=== PATIENT | female | born 1945 | race African-American/Black ===

== ENCOUNTER 2021-01-25 11:00 | Outpatient (RCR) | payer MEDICARE, SELFPAY ==
--- NOTE | 2020-12-11 09:14 | PTOPEVAL ---
PHYSICAL THERAPY EVALUATION AND PLAN OF CARE 12-11-20 Thank you for referring Tiffani Almendarez to [facility] for the diagnosis of lumbar radiculopathy and LE weakness.? Tiffani is scheduled to be seen for therapy? 2 x/week for 4 weeks. Please review, sign, date and return this plan of care HERMINIA. I agree with and certify that the following plan of care is medically necessary. Referring Physician Date Attending Provider: DONNA White *PT Outpatient Evaluation Start: 12/11/20 08:20 Document 12/11/20 08:21 NADIA (Rec: 12/11/20 09:14 NADIA [id number]) Outpatient Past Medical History Past Medical History Source of Past Medical History Patient Neurological History Hx Migraine Yes: recent MRI and to dr for headaches/dizziness Hx Other Neurological Disorders Yes: vertigo Cardiovascular History Hx Hypertension Yes: meds Respiratory History Hx Emphysema Yes Hx Sleep Apnea Yes: CPAP sleeping Hx Other Respiratory Disorders Yes: SOB with exertion Gastrointestinal History Hx Gastrointestinal Disorders No Significant History Genitourinary History Hx Genitourinary Disorders No Significant History Musculoskeletal History Hx Back Pain Yes Hx Spinal Surgery Yes: neck surgery over 1 year ago Hx Other Musculoskeletal Disorders Yes: cramps in legs Hematological History Hx Hematological Disorders No Significant History Endocrine History Hx Endocrine Disorders No Significant History HEENT History Hx Sinus Problems Yes: throat issues due to sinus drainage Hx Other HEENT Disorders Yes: glasses; hard of hearing; Integumentary History Hx Skin Disorders No Significant History Evaluation Information Problem Diagnosis lumbar radiculopathy and LE weakness Onset November 06, 2020 Subjective Information gradual increase in pain over Query Text:As Reported By Patient/ past month; no falls or injury Family to back; have not had any falls in the past 6 months; Diagnostic Tests X-Rays For This Problem No MRI For This Problem No Other Tests For This Problem No Previous Treatments Previous Treatments For This Problem previous PT for back, over 1 year ago Prior Level of Function Activity Level (Last 3 Months) Occupation retired Activity of Daily Living Ability Needs Some Help Indoor/Home Mobility Independent Community Mobility Needs Some Help Stairs Ability Needs Some Help Functional Cognition (Planning, Shopping Needs Some Help , Taking [employer]
--- NOTE | 2021-01-01 11:16 | PCPTNOTE ---
Patient called & cancelled scheduled appointment this date due to not having a ride to therapy. Will continue per POC.
--- NOTE | 2021-01-03 11:37 | PCPTNOTE ---
Patient did not show up for scheduled appointment this date. Called all three phone numbers Pt has listed in file, two of the numbers do not have voicemail set up and number was disconnected. This is the Pt's first no-show.
--- NOTE | 2021-01-08 11:59 | PCPTNOTE ---
pt was 30 minutes late for today's appt/reevaluation;
--- NOTE | 2021-01-08 11:59 | PTOPEVAL ---
PHYSICAL THERAPY RE-EVALUATION AND UPDATED PLAN OF CARE 01-08-21 Refer to the clinical summary below for her status today, compared to the initial evaluation. PT will continue treatment 2x/week for 3 weeks. Thank you for referring Tiffani Almendarez to [facility].? Please review, sign, date and return this updated plan of care [facility]. I agree with and certify that the following plan of care is medically necessary. Referring Physician Date Attending Provider: Juliet Sandoval, ORTHO TECH-BC Document 01/08/21 11:25 NADIA (Rec: 01/08/21 11:59 NADIA [id number]) Assessment Status Re-evaluation Subjective Information Tiffani reports: is doing better, Query Text:As Reported By Patient/ therapy is helping, want to Family continue therapy; is doing home exercises; when shopping, can walk about 15 minutes, then have to get scooter at store; Pain Assessment Timing of Pain Assessment Timing of Pain Assessment Assessment Pain Scale Pain Scale Used Numeric (1 - 10) Self Report Pain Assessment Bilateral Back Reported Pain Level 4 Pain Description Burning,Throbbing Pain Frequency Chronic,Continuous Other Pain Description R and L hips and buttock; anterior thigh heavy and hurts Lowest Pain Intensity 4 Greatest Pain Intensity 6 Other Pain Aggravating Factors sleeping awaken 3-4 x/night due to back pain; Pain Score Pain Score 4: Self Report Interventions Used Interventions Used By Clinicians Education,Exercise Lower Extremity Range of Motion General Lower Extremity Range of Motion Gross Lower Extremity Range of Motion supine SLR/ hamstring length B Comments 60' without an increase in pain; stand trunk ROM: flexion- hands to below knee, no increase pain; trunk rotation to R and L without an increase in pain; Lower Extremity Muscle Strength Testing General Lower Extremity Strength Gross Lower Extremity Strength supine: SLR R 10/L 10 reps; bridge 10 reps; side lying hip abduction R to 10' x 10 / L to 10' x 10 reps Gait Assessment 2 Minute Walk Total Distance Walked (feet) 275 2 Minute Walk Gait Speed Score (feet/ 2.29 second) 2 Minute Walk Test Comments used cane Rehab Teaching Rehab Teaching Teaching Topic Rehab Teaching Topic Components Exercise,Home Program As Pertains To Plan of
--- NOTE | 2021-01-15 14:16 | PCPTNOTE ---
Patient did not show up for scheduled appointment this date. Called Pt was able to leave voicemail at , about missed appointment and upcoming appointment on 01/17/21 at 11:00. This is Pt's second N/S.
--- NOTE | 2021-01-17 11:57 | PCPTNOTE ---
Patient did not show up for scheduled appointment this date. Called Pt was able to leave voicemail at reminding her of next appointment time.
--- NOTE | 2021-01-25 11:24 | PCPTNOTE ---
Addendum entered by Sonia Hernandez, SCIENTIFIC DIVER 01/25/21 11:32: Patient showed 30minutes late, wanted to be seen for allowed amount. Original Note: Patient did not show up for scheduled appointment this date; therapist awareness will address at next appointment which is re-eval.
--- NOTE | 2021-01-29 13:03 | PCPTNOTE ---
pt did not show for reevaluation; called pt and her voice mail box was full--unable to leave message;
--- NOTE | 2021-01-31 15:11 | PCPTNOTE ---
pt's caregiver Nicky [phone] called, asked about rescheduling the reeval appt; She stated pt will not be having cardiac surgery. Discussed with Nicky, if pt wants to continue PT or not; she will discuss with pt--? able to do more with cardiac history or just do home exercises on her own? Nicky with talk with pt and call back;
--- NOTE | 2021-02-26 14:51 | PCPTNOTE ---
PHYSICAL THERAPY DISCHARGE 02-26-21 Attending Provider: Juliet Sandoval, INDUSTRIAL SERVICES WORKER- Patient:Tiffani Almendarez Date of :1945 Mrs. Almendarez has not returned for any further treatments since 01/25/2021, therefore she will be discharged at this time. Tiffani has received a total of 11 PT sessions for the diagnosis of LE weakness and lumbar pain. She did not show for 4 appointments and called and canceled 1 appointment. The goals were not assessed. Thank you for referring this patient to [facility]. Please review, sign, date and return this discharge summary HERMINIA. I have been updated about the patient's current status and I agree with discharge from the above service at this time. Referring Physician Date
== END 2021-02-26 14:24 | disposition home or self-care (01) ==
LOC: ANHPT 11:00
PROVIDERS: PCP Family Medicine
DX: M51.16 Intervertebral disc disorders with radiculopathy, lumbar region (principal); R29.898 Other symptoms and signs involving the musculoskeletal system
CPT/HCPCS: 97014; 97110; 97140; 97161; G0283

== ENCOUNTER 2021-02-01 09:30 | Observation (INO) | payer MEDICARE, SELFPAY ==
[2021-02-01] VITALS (15 sets, daily range): BP systolic 123–166; BP diastolic 73–99; PULSE 75–99; RESP 18–21; TEMP 36.1–36.8; O2SAT 95–100; BMI 30.2
--- NOTE | ~2021-02-01 | XR_ITS ---
EXAMINATION: XR chest 2V DATE: 02/01/2021 10:36 INDICATION: Shortness of breath. TECHNIQUE: Frontal and lateral views of the chest were obtained. COMPARISON: Chest 2 views 06/29/2018 FINDINGS: The chest demonstrates clear lungs without pneumonia, pleural effusion, or pneumothorax. Th e heart size is normal. There are changes of posterior fusion procedure in cervical spine. IMPRESSION: 1. No acute cardiopulmonary disease. Reviewed, dictated and finalized at location B.
--- NOTE | 2021-02-01 10:09 | ECG_ITS ---
Measurements Intervals [place] Rate: 87 P: 54 PA: 159 QRS: 17 QRSD: 74 T: 66 QT: 352 QTc: 425 Interpretive Statements SINUS RHYTHM MINIMAL Q WAVES- HIGH LATERAL LEADS BASELINE ARTIFACT- I, II, III, AVR, AVL, V1 BORDERLINE ECG Electronically Signed On 02-01-2021 10:15:44 CDT by Alan Hanna D.O.
[2021-02-01 10:58] LABS: Alanine Aminotransferase 20 U/L (4-35); Albumin Level 4.5 g/dL (3.5-5.1); Alkaline Phosphatase 80 U/L (38-126); Anion Gap 7 mmol/L (8-16); Aspartate Amino Transferase 33 U/L (14-36); Bilirubin,Total 0.5 mg/dL (0.2-1.3); Blood Urea Nitrogen 16 mg/dL (7-17); Calcium 9.2 mg/dL (8.4-10.2); Carbon Dioxide 27 mmol/L (22-30); Chloride 104 mmol/L (98-107); Estimated CRCL calculation 52 ml/min; Estimated Glomerular Filt Rate > 60; Glucose 116 mg/dL (65-105); Potassium 3.9 mmol/L (3.4-5.0); Sodium 138 mmol/L (137-145)
[2021-02-01 11:01] LABS: Troponin I < 0.012 ng/mL (0.000-0.034)
[2021-02-01 11:04] LABS: Add Urine Microscopic? NO; Appearance Urine Clear (Clear); Bilirubin Urine Negative (Negative); Blood Urine Negative (Negative); Color Urine Yellow (Yellow); Glucose Urine UA Negative (Negative); Ketones Urine Negative (Negative); Leukocyte Esterase Ur Negative LEU/UL (Negative); Nitrate Urine Negative (Negative); Protein Urine Negative (Negative); Specific Grav Ur 1.015 (1.001-1.035); Urobilinogen Urine Negative mg/dL (<2.0)
[2021-02-01 11:37] LABS: Basophils Percent Auto 0.3 % (0.2-1.2); Eosinophils Absolute Auto 0.1 K/mm3 (0-0.3); Eosinophils Percent Auto 1.5 % (0-4.4); Hematocrit 39.7 % (37.0-47.0); Hemoglobin 12.7 g/dL (12.0-15.0); Immature Granulocyte Absolute 0.02 K/mm3 (0.00-0.031); Immature Granulocyte Percent A 0.3 % (0-0.5); Lymphocytes Absolute Auto 0.78 K/mm3 (0.9-3.2); Lymphocytes Percent Auto 12.8 % (18.3-44.2); Mean Corpuscular Hemoglobin 25.1 pg (26-34); Mean Corpuscular Volume 78.6 fl (80-100); Monocytes Absolute Auto 0.3 K/mm3 (0.1-0.6); Monocytes Percent Auto 4.1 % (2.6-8.5); Platelet Count Result 205 k/mm3 (150-375); Red Blood Count 5.05 M/mm3 (4.2-5.4); Red Cell Distribution Width 14.8 % (11.5-14.5); White Blood Count 6.1 K/mm3 (4.5-10.0)
--- NOTE | 2021-02-01 12:10 | ED.GENADULT ---
HPI - General Adult General Chief complaint: Shortness of Breath/Dyspnea Stated complaint: WEAK/DIZZY/CP OFF AND ON Time Seen by Provider: 02/01/21 11:26 Source: patient, family and RN notes reviewed Limitations: no limitations History of Present Illness HPI narrative: Patient 75 years old -Mal[place]ian female with At 4 AM this morning with retrosternal heaviness, radiating all the way to her back, associated with pain in the left upper extremity and left neck. Patient was not able to breathe at that time, associated with nausea and one vomiting. The above symptoms lasted for few minutes, currently her main complaint is headache. Patient denies any fever, chills, abdominal pain or urinary symptoms. Patient did not have any Covid 19 infection or vaccination yet. Patient under tremendous amount of stress the last few months because she is taking care of 7 of her grandkids. History of hypertension, hyperlipidemia, sleep apnea on CPAP and TIA x3. Patient does not smoke or drink or uses drugs. Related Data Home Medications Medication Instructions Recorded Confirmed aspirin 81 mg chewable tablet 81 mg PO DAILY 09/15/19 02/01/21 diclofenac sodium 1 % topical gel 2 gm TOPICAL QID 09/15/19 02/01/21 methocarbamol 500 mg tablet 500 mg PO QID 09/15/19 04/04/20 nifedipine 30 mg tablet,extended 30 mg PO DAILY 09/15/19 02/01/21 release terbinafine HCl 250 mg tablet 250 mg PO DAILY 09/15/19 04/04/20 azelastine 137 mcg INTRANASAL Q12H 02/01/21 02/01/21 calcium carbonate-vit D3-min tablet PO 02/01/21 carvedilol 12.5 mg PO BID 02/01/21 02/01/21 losartan 50 mg PO DAILY 02/01/21 02/01/21 pravastatin 20 mg PO DAILY 02/01/21 02/01/21 tizanidine 2 mg PO TID PRN 02/01/21 02/01/21 Allergies Allergy/AdvReac Type Severity Reaction Status Date / Time No Known Allergies Allergy Unknown Verified 09/15/19 13:27 Review of Systems Review of Systems: Narrative: CONSTITUTIONAL: Denies fever, chills, or sweats. EYES: Denies visual changes, redness, or discharge. ENT: Denies rhinorrhea, congestion, sore throat, or otalgia. CARDIOVASCULAR: Denies chest pain, palpitations, or edema. RESPIRATORY: Denies cough or dyspnea. GASTROINTESTINAL: Denies abdominal pain, nausea, vomiting, or diarrhea. GENITOURINARY: Denies dysuria or hematuria. SKIN: Denies rash or itching. MUSCULOSKELETAL: Denies back pain, joint pain, or myalgia. NEUROLOGIC: Denies headache, numbness, or weakness. PSYCHIATRIC: Denies anxiety or depression. [facility] Past Medical History Medical History Anxiety disorder, unspecified Essential hypertension Gastro-esophageal reflux disease without esophagitis Unspecified osteoarthritis, unspecified site Vertigo Surgical History Surgical History Hx of cervical spine surgery Family History Family History Mother Family history unknown Patient's mother is Father Malignant neoplasm of prostate Social History Social History Smoking status: Never smoker Second hand tobacco smoke exposure: No Alcohol intake: never Exam Narrative: Exam Narrative: General appearance: Well-developed, well-nourished Skin: Normal color Head: Normocephalic, nontraumatic Eyes: Clear conjunctiva ENT: Oropharynx normal, ears normal, nose normal Neck: Supple, nontender Chest and respiratory: Airway patent, no respiratory distress, no accessory muscle use Heart: Regular rate/rhythm Abdomen: Soft, nontender, no organomegaly, quiet bowel sounds Vascular: Normal peripheral pulses, normal capillary refill. 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
[2021-02-01] MEDS: METOPROLOL TARTRATE 50 MG TAB 25 MG PO (12:39)
[2021-02-01] MEDS: ASPIRIN 81 MG CHEWABLE TABLET 324 MG PO (12:39)
--- NOTE | 2021-02-01 13:21 | PC.NURSE ---
Called to give report. Informed that receiving nurse was at lunch and would call me back
[2021-02-01 13:41] LABS: INR 0.9
[2021-02-01 13:42] LABS: Partial Thromboplastin Time 26.9 SECONDS (22.3-36.8)
[2021-02-01 13:44] LABS: D Dimer 1.42 ug/mL (<0.48)
[2021-02-01 13:46] LABS: Troponin I < 0.012 ng/mL (0.000-0.034)
--- NOTE | 2021-02-01 15:36 | PM.IMHP ---
H&P: HPI History of Present Illness Date/Time: 02/01/21 15:36 Chief Complaint: Chest pain Narrative: Tiffani Almendarez is a 75-year-old white female being followed by Dr. Hwang for MELGOZA and chest discomfort. The patient has been evaluated for these problems over the last several months. She has had episodes of chest pain and pressure which last for 5 minutes, can occur with no provocation, and resolve spontaneously. She has also had progressive MELGOZA. She used to walk 12 blocks with her dog but now can only walk from room to room by before she has some shortness of breath and needs to rest. Evaluation to date includes an echocardiogram in June 2020 showing normal LV function, mild LVH, diastolic dysfunction, EF 54%, mild MR and RVSP of 31 mmHg. A stress test in June 2020 showed normal perfusion, EF 70%. However because of these ongoing symptoms Dr. Hwang has recommended a right and left heart catheterization for a definitive analysis, which is pending insurance approval. The patient had a particularly intense of intense chest pain about 1.5 months ago while washing dishes and then little spells since then. This morning she woke up with significant substernal chest discomfort, tightness and squeezing, a gas-like feeling with burning which radiated to the interscapular area and down her left arm associated with shortness of breath and sweating. She had dry heaves. There was radiation to the left neck. She also complained of headache and some discomfort of the lower abdomen. She called her granddaughter, who called EMS. The CP improved after about 10 minutes. Per EMS run, on their arrival her pulse is 93, respiratory rate 36-40, blood pressure 145/87, O2 sat 98. Was evaluated in the emergency room and admitted to observation. She has been pain-free since admission. She also has a history of hypertension, hyperlipidemia and 3 TIAs. Review of Systems Constitutional: Constitutional: Reports lethargy Eyes: Eyes: Reports blurry vision Comments: Visual problem since TIAs. ENT: Denies Normal hearing present Cardiovascular: Cardiovascular: Reports chest pain, Denies pedal edema, Denies leg edema, Denies lightheadedness and Denies palpitations Respiratory: Respiratory: Denies hemoptysis and Reports dyspnea on exertion Gastrointestinal: Gastrointestinal: Denies melena and Denies hematochezia Genitourinary: Genitourinary: Denies hematuria Musculoskeletal: Musculoskeletal: Reports back pain Integumentary/Breasts: Skin/Breast: Denies rash Neurologic: Denies confusion Psychiatric: Psychiatric: Reports anxiety and Denies behavioral changes Comments: Under some stress as she takes care of several grandchildren. [facility] Past Medical History Medical History (Updated 02/01/21 @ 15:53 by Tatianna Dumont MD) Anxiety disorder, unspecified Essential hypertension Gastro-esophageal reflux disease without esophagitis History of TIAs Per patient; I cannot find any documentation Hypercholesterolemia Hyperlipidemia Obstructive sleep apnea on CPAP Right carpal tunnel syndrome Unspecified osteoarthritis, unspecified site Vertigo Surgical History Surgical History Hx of cervical spine surgery Family History Family History (Updated 02/01/21 @ 15:50 by Tatianna Dumont MD) Mother Family history unknown Patient's mother is in her 20s, possibly of exposure Father Malignant neoplasm of prostate Social History Social History Smoking status: Never smoker Second hand tobacco smoke exposure: No Alcohol intake: never Substance use: never Substance use type: does not use Living arrangements: with family Gender identity (if verbalized by the patient): Female Sexual Orientation (if Verbalized by the Patient): Straight or Heterosexual Spiritual care concerns: No M
--- NOTE | 2021-02-01 16:11 | ADMGEN ---
This patient, Tiffani Almendarez, was admitted to [facility]. Patient/family oriented to hospital policies and general routines including ID bracelet, bed and alarms, visiting hours, pain management, procedures, bathroom and other care routines, personal items, smoking policy, room service/diet, and visiting hours. Information on how to activate the Rapid Response Team has been discussed. Patient/Family are encouraged to report perceived risks to care and to ask questions if they do not understand what they are told or what they should do.
--- NOTE | 2021-02-01 16:11 | PC.NURSE ---
Reviewed health history, admission questions, medications, and allergies with this patient. ROWENA Andrew informed and updated.
--- NOTE | 2021-02-01 17:44 | ECG_ITS ---
Measurements Intervals [place] Rate: 68 P: 49 [place]: 179 QRS: 3 QRSD: 76 T: 66 QT: 402 QTc: 430 Interpretive Statements SINUS RHYTHM VOLTAGE CRITERIA FOR LVH MINIMAL Q WAVES- HIGH LATERAL LEADS BORDERLINE ECG Electronically Signed On 02-01-2021 20:13:17 CDT by Alan Hanna D.O.
[2021-02-01] MEDS: carvediloL 12.5 MG TABLET PO (18:51)
[2021-02-01 18:57] LABS: Troponin I < 0.012 ng/mL (0.000-0.034)
--- NOTE | 2021-02-01 19:35 | PC.NURSE ---
REPORT GIVEN TO DAT GUAMAN IN IMU. PT. IS TO TRANSFER TO 206.
--- NOTE | 2021-02-01 19:55 | PC.NURSE ---
CALLED PT'S DAUGHTER, JUNAID, AT [phone]. CONDITION UPDATE GIVEN AND NOTIFIED OF TIME OF CARDIAC CATH IN AM.
--- NOTE | 2021-02-01 20:10 | PC.NURSE ---
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 UPDATES GIVEN TO DAT GUAMAN.
[2021-02-02] VITALS (19 sets, daily range): BP systolic 100–139; BP diastolic 65–87; PULSE 72–90; RESP 16–20; TEMP 36.1–36.6; O2SAT 96–100
[2021-02-02] MEDS: DICLOFENAC SODIUM 1% 100 GM GEL (*BKC) 1 APPLIC TOPICAL (08:28)
[2021-02-02] MEDS: LOSARTAN POTASSIUM 50 MG TABLET PO (08:29)
[2021-02-02] MEDS: CALCIUM/VITAMIN D 250 MG TABLET 1 TABLET PO (08:29)
[2021-02-02] MEDS: ASPIRIN 81 MG CHEWABLE TABLET PO (08:29)
[2021-02-02] MEDS: NIFEdipine 30 MG TAB.ER.24 PO (08:30)
[2021-02-02] MEDS: carvediloL 12.5 MG TABLET PO ×2 (08:30→18:10)
[2021-02-02] MEDS: PRAVASTATIN SODIUM 20 MG TABLET PO (08:30)
[2021-02-02] MEDS: TIZANIDINE HCL 1 MG TABLET PO (08:30)
[2021-02-02] MEDS: NITROGLYCERIN SL 0.4 MG TABLET SUBLINGUAL (12:12)
--- NOTE | 2021-02-02 13:01 | WPDMODSED ---
Moderate Sedation Note-Pt Data Patient Data Diagnosis: chest pain etiology unclear Present Complaint: intermittent chest pain Procedure to be performed/Plan: left heart catheterization Allergies Allergy/AdvReac Type Severity Reaction Status Date / Time No Known Allergies Allergy Unknown Verified 02/01/21 15:17 Home Medications Medication Instructions Recorded Confirmed Type aspirin 81 mg chewable tablet 81 mg PO DAILY 09/15/19 02/01/21 History diclofenac sodium 1 % topical gel 2 gm TOPICAL QID 09/15/19 02/01/21 History methocarbamol 500 mg tablet 500 mg PO QID PRN 09/15/19 04/04/20 History nifedipine 30 mg tablet,extended 30 mg PO DAILY 09/15/19 02/01/21 History release terbinafine HCl 250 mg tablet 250 mg PO DAILY 09/15/19 04/04/20 History azelastine 137 mcg INTRANASAL Q12H 02/01/21 02/01/21 History calcium carbonate-vit D3-min 1 tablet PO DAILY 02/01/21 02/01/21 History carvedilol 12.5 mg PO BID 02/01/21 02/01/21 History losartan 50 mg PO DAILY 02/01/21 02/01/21 History pravastatin 20 mg PO DAILY 02/01/21 02/01/21 History tizanidine 1 mg PO DAILY 02/01/21 02/01/21 History Current Medications: Active Medications Aspirin (Aspirin 81 Mg Chewable Tablet) 81 mg PO DAILY@0800 [facility] Last Admin: 02/02/21 08:29 Dose: 81 mg Documented by: Calcium Carbonate (Calcium/Vitamin D 250 Mg Tablet) 1 tablet PO QAM [facility] Last Admin: 02/02/21 08:29 Dose: 1 tablet Documented by: Carvedilol (Carvedilol 12.5 Mg Tablet) 12.5 mg PO BID [facility] Last Admin: 02/02/21 08:30 Dose: 12.5 mg Documented by: Diclofenac Sodium (Diclofenac Sodium 1% 100 Gm Gel (*Bkc)) 1 applic TOPICAL QID [facility] Stop: 03/03/21 17:01 Last Admin: 02/02/21 08:28 Dose: 1 applic Documented by: Sodium Chloride (Normal Saline Iv) 500 mls @ 100 mls/hr IV CONT .Q5H [facility] Losartan Potassium (Losartan Potassium 50 Mg Tablet) 50 mg PO DAILY [facility] Last Admin: 02/02/21 08:29 Dose: 50 mg Documented by: Nifedipine (Nifedipine 30 Mg Tab.Er.24) 30 mg PO DAILY [facility] Last Admin: 02/02/21 08:30 Dose: 30 mg Documented by: Nitroglycerin (Nitroglycerin Sl 0.4 Mg Tablet) 0.4 mg SUBLINGUAL Q5MIN PRN PRN Reason: Chest Pain Last Admin: 02/02/21 12:12 Dose: 0.4 mg Documented by: Pravastatin Sodium (Pravastatin Sodium 20 Mg Tablet) 20 mg PO DAILY [facility] Last Admin: 02/02/21 08:30 Dose: 20 mg Documented by: Tizanidine HCl (Tizanidine Hcl 1 Mg Tablet) 1 mg PO DAILY [facility] Last Admin: 02/02/21 08:30 Dose: 1 mg Documented by: Sedation/Anesthesia: No previous sedation/anesthesia problems (including family history). [facility] Past Medical History Medical History (Updated 02/01/21 @ 15:53 by Tatianna Dumont MD) Anxiety disorder, unspecified Essential hypertension Gastro-esophageal reflux disease without esophagitis History of TIAs Per patient; I cannot find any documentation Hypercholesterolemia Hyperlipidemia Obstructive sleep apnea on CPAP Right carpal tunnel syndrome Unspecified osteoarthritis, unspecified site Vertigo Surgical History Surgical History Hx of cervical spine surgery Family History Family History (Updated 02/01/21 @ 15:50 by Tatianna Dumont MD) Mother Family history unknown Patient's mother is in her 20s, possibly of exposure Father Malignant neoplasm of prostate Social History Social History Smoking status: Never smoker Second hand tobacco smoke exposure: No Alcohol intake: never Substance use: never Substance use type: does not use Living arrangements: with family Gender identity (if verbalized by the patient): Female Sexual Orientation (if Verbalized by the Patient): Straight or Heterosexual Spiritual care concerns: No Mod Sed Physical Exam Physical Exam Pre Procedural Exam: Normal: Appearance, Neck, Throat, Airway, Lungs, Heart Size, Heart Rate, Hea
--- NOTE | 2021-02-02 14:35 | WPDCARDPROC ---
Cardiac Cath Procedure Note Date of procedure:: 02/02/21 Performing physician:: Nadeem Villanueva MD Indication:: intermittent chest pain Brief clinical history:: this is a 75-year-old black female who is not known to have any coronary disease history. She is having episodes of intermittent chest pain for some time. She has been seen in our office in consultation by my partner who recommended right left heart catheterization both to rule coronary disease and to evaluate suspected pulmonary artery hypertension. Procedure Procedure performed:: Right and left heart catheterization Sedation/Medication given:: fentanyl 50 mg Versed 2 mg case start time 2:06 p.m. case end time 2:30 p.m. sedation provided by Toshia Mueller RN, trained observer Access site:: right femoral artery, right femoral vein Estimated blood loss:: 15-20 cc Procedure note:: patient was brought to the cardiac catheterization lab in the postabsorptive state where the right femoral triangle was prepared and draped in the fashion. Anesthesia was provided with 1% lidocaine infiltrated locally. Following this a 5 [place] sheath was placed into the right femoral artery and a 7 [place] sheath into the femoral vein using the modified Seldinger technique. Following this I used a balloon tip [place]-Larry catheter to measure right-sided pressures and to measure thermodilution cardiac outputs and AV O2 difference. [place]Larry catheter was then withdrawn. I then used a 5 [place] angled pigtail catheter advanced into the central aorta and the LV to measure left-sided hemodynamics and to inject a left ventriculogram in the 30 degree WASSERMAN projection. The pigtail catheter was then withdrawn. I then injected the right left coronary artery using a standard 5 [place] FL4 catheter and the right coronary using a standard 5 [place] JR4 catheter. After this the case was terminated and Angio-Seal was performed and the femoral artery after an angiogram was done of the femoral artery through the sheath. The hemostatic result was good. The venous sheath was pulled in the trestle mainternance laborer as well. Procedure was well tolerated she left the trestle mainternance laborer with no evidence of any procedural complications there was no evidence of a groin hematoma. Findings:: Hemodynamics: Right atrial pressure is 6 mmHg, right ventricle 29/1 end-diastolic 6, pulmonary artery pressure 28/10, pulmonary capillary wedge pressure was 6 mmHg central aortic pressure was 126 over 70 left ventricle 126 over to end-diastolic 14. There was no gradient on pullback across the aortic valve. Thermodilution cardiac output was 3.9 liters/minute giving an index of 2.2. Left ventricle: The LV appears to be normal in size all segments contract appropriately the global ejection fraction is visually estimated to be 50% there were no regional wall motion abnormalities. The left main coronary artery is nicely patent and large in caliber the left anterior descending is a medium caliber vessel proximally and rather small distally. Angiographically it is free of disease with KEITH 3 flow down to the apex. The circumflex is a moderate caliber artery giving rise to the marginal branches which appears to be smooth and angiographically normal in appearance right coronary artery is ponxleuh-ce-swpre caliber dominant to the posterior circulation and angiographically appears to be free of disease. Conclusion:: 1. Right coronary dominant circulation with no evidence of significant coronary disease 2. normal appearing left ventricular systolic contractility 3. symptoms of chest pain are apparently not ischemic in nature based on these finding 4. the patient does not have significant pulmonary hypertension Nadeem Villanueva MD [facility]
[2021-02-02] MEDS: SODIUM CHLORIDE 0.9% IV 1,000 ML 125 ML IV CONT (18:09)
--- NOTE | 2021-03-20 17:05 | PM.DS ---
DS: Admitting Diagnosis Admitting Diagnosis Admitting Diagnosis: chest pain DS: Discharge Diagnosis Discharge Diagnosis (1) Chest pain: Qualifiers: Chest pain type: unspecified Qualified Code(s): R07.9 - Chest pain, unspecified Code(s): R07.9 - Chest pain, unspecified Status: Acute DS: Summary Hospital Course Reason for hospitalization: right and left heart catheterization Hospital Course: this 75-year-old patient followed by 1 of my partners in the office who has been experiencing episodes of chest pain and also by echocardiogram was suspected of having pulmonary hypertension. Rule out coronary heart disease and determine if pulmonary hypertension was present right and left heart catheterization was recommended and performed on the morning of admission. She underwent the procedure without complication from the right femoral artery and vein. The patient's findings are fully dictated in the procedure note. In short she was found to have angiographically non diseased coronary arteries, preserved LV function and no evidence of pulmonary hypertension. Following completion of bedrest the patient was a good candidate for discharge was discharged home with follow-up scheduled in our office as per previous appointment. Status at Discharge Functional status at discharge: independent ambulation Overall status at discharge: patient is back to baseline Time Spent with Patient Time attestation: Total time spent providing and/or coordinating discharge services: Time spent: Less than 30 minutes Exam Const: General: comfortable and no acute distress HENMT: Mouth: Yes moist mucous membranes Eyes: Sclera: sclerae normal Pupils: Equal, round and reactive pupils present Neck: Neck: supple and no JVD Resp: Effort & Inspection: normal respiratory effort Auscultation: clear to auscultation bilaterally Cardio: Rate: regular rate Rhythm: regular rhythm Other: PMI difficult to palpate no murmur no gallop GI: GI Palp: Yes Soft to palpation Auscultation: normal bowel sounds Extrem: General: normal to inspection Discharge Plan Discharge Consulting providers: Nadeem Villanueva ; Alan Hanna ; Jose Petersen V. Discharging Clinician: Medina Alejo Anticipated Discharge Date/Time: 02/02/21 18:53 Patient Disposition: Home, Self-Care Activity: no straining, no driving and other - see discharge instructions Diet: heart healthy Wound Care Instructions: other - see discharge instructions Discharge Instructions: [facility] [address] [place], [place] [id number] DISCHARGE INSTRUCTIONS - POST PCI Activity 1. No driving until 02/03/2021. 2. No lifting, pushing or pulling more than 10 pounds for 1 week. 3. No strenuous exercise or activity (including sexual activity) until you are released to do so. 4. May shower but no tub baths or swimming pool for 1 week. Avoid commercial hot tubs. They are too hot. Medications DO NOT STOP YOUR MEDICATIONS ONLY YOUR PURE PAK MACHINE OPERATOR CAN STOP THE FOLLOWING MEDICATIONS - PLEASE CALL THE OFFICE WITH QUESTIONS. *Aspirin *Ticagrelor (Brilinta) *Atorvastatin *Lisinopril or ARB *Metoprolol tartrate or succinate *Clopidogrel (Plavix) *Prasugrel (Effient) Important Reminders 1. Keep your stent card in your wallet at all times 2. Follow a heart healthy diet paying extra attention to cholesterol and fats. 3. Stay hydrated. 4. If you have chest
== END 2021-02-02 17:30 | disposition home or self-care (01) ==
LOC: ANHED 12:20 → ANHCPC 14:04 → ANHIMU 02-02 09:20 → ANHCPC 02-06 15:10 → ANHIMU 02-06 15:10
PROVIDERS: Specialist; Admitting Provider Internal Medicine Cardiovascular Disease; Emergency Provider Emergency Medicine; Visit Provider Internal Medicine Cardiovascular Disease
PROC: 4A023N8 Measurement of Cardiac Sampling and Pressure, Bilateral, Percutaneous Approach (ICD-10-PCS; CPT 93453; principal; 2021-02-02 11:30)
DX: I20.0 Unstable angina (principal); R06.00 Dyspnea, unspecified; I10 Essential (primary) hypertension; K21.9 Gastro-esophageal reflux disease without esophagitis; F41.9 Anxiety disorder, unspecified; M19.90 Unspecified osteoarthritis, unspecified site; Z79.82 Long term (current) use of aspirin; E78.5 Hyperlipidemia, unspecified; E78.00 Pure hypercholesterolemia, unspecified; G47.33 Obstructive sleep apnea (adult) (pediatric)
CPT/HCPCS: 36415; 71046; 80053; 81003; 84484; 85025; 85380; 85610; 85730; 93005; 93460; 99285; A9270; C1760; C1887; C1894; G0269; G0378; J1644; J2250; J3010; J7030; J7040

== ENCOUNTER 2021-04-25 08:30 | Outpatient (RCR) | payer MEDICARE, SELFPAY ==
--- NOTE | 2021-04-06 13:37 | PTOPEVAL ---
PHYSICAL THERAPY EVALUATION Thank you for referring Tiffani Almendarez to [facility].?Tiffani was evaluated for the dx of dizziness/BPPV. The patient is scheduled to be seen for therapy?2 x/week for 2 weeks. Please review, sign, date and return this plan of care HERMINIA. I agree with and certify that the following plan of care is medically necessary. Referring Physician Date Attending Provider: Zaria Mcnamara NP *PT Outpatient Evaluation Start: 04/06/21 08:28 Freq: Status: Active Protocol: Document 04/06/21 08:28 MLV (Rec: 04/06/21 09:12 MLV [id number]) Therapy Assessment Status Assessment Status Assessment Status Evaluation Evaluation Information Problem Diagnosis dizziness/vertigo Onset 5 months ago Cause no injury Additional Evaluation Detail The patient reports a new onset of dizziness and SOB that began about 5 months ago. The patient has also been admitted for heart concerns recently and tests reveal high BP and stress related symptoms. The patient has new meds and her BP is improved. The patient is SOB but reports no respiratory diagnosis. The patient uses a cane in the home and a rollator when outside for safety. The patient is retired. The patient has occasions of dizziness when lying in bed, still or when getting up. The patient reports taking flonase for sinus issues and takes albuteral for breathing issues. Subjective Information The patient reports having a Query Text:As Reported By Patient/ sinus infection a month ago, Family got treated for it and now her dizziness is better but still occurs. The patient gets up slow to limit dizziness and tries not to turn too fast also. Pt takes meclazine prn for dizziness. The patient lives home with son and has hired assistance for housework , traveling/shopping. Pain Assessment Timing of Pain Assessment Timing of Pain Assessment Assessment Pain Scal
--- NOTE | 2021-04-16 09:01 | PCPTNOTE ---
Patient did not show up for scheduled appointment this date. Called & had to leave a message.
--- NOTE | 2021-04-24 08:24 | PCPTNOTE ---
Patient did not show up for scheduled appointment this date. Called and left message-verified next appt time on message.
--- NOTE | 2021-04-25 09:27 | PTOPEVAL ---
PHYSICAL THERAPY DISCHARGE Thank you for referring Tiffani Almendarez to [facility].? The patient has completed 3 visits for the dx of BPPV. The patient has improved and no further skilled PT needs. DC PT. Please review, sign, date and return this plan of care HERMINIA. I agree with and certify that the following plan of care is medically necessary. Referring Physician Date Attending Provider: Zaria Mcnamara NP *PT Outpatient Discharge Start: 04/06/21 08:28 Freq: Status: Active Protocol: Document 04/25/21 08:41 MLV (Rec: 04/25/21 09:16 MLV [id number]) Therapy Assessment Status Assessment Status Assessment Status Discharge Evaluation Information Problem Diagnosis dizziness/vertigo Cause no injury Additional Evaluation Detail The patient reports having some dizziness that occurs most often when she first stands/turns. Patient states she forgets to take a moment before she moves. The patient reports taking her BP meds regularly but doesn't check BP everyday. The patient is doing her HEP and reports having very little or no symptoms with the BPPV exercise. Pain Assessment Timing of Pain Assessment Timing of Pain Assessment Assessment Self Report Self Report Pain Level 0 Pain Score Pain Score 0: Self Report Vestibular Evaluation Vestibular Testing Smooth Pursuits Normal Saccades Undershoots Sitting Head Thrust WNL Gaze Stabilization with Fixation WNL Gaze Stabilization without Fixation WNL Cardwell-Hallpike Left WNL Shameka-Hallpike Right WNL Horizontal Roll Test in Supine Left WNL Horizontal Roll Test in Supine Right WNL Vestibular Testing Comments control with saccades improve with repetition and pt has a written HEP to work on this activity. The patient is I with the exercises but needs caregiver to help remind her to do them and possibly to help read the instructions. General Exercise General Exercises Exercise Description completed eye exercises in Query Text:Record Sets, Reps, standing; eyes fixed and move Resistance, and Position head side to side and eyes fixed head up and down.
== END 2021-04-25 15:40 | disposition home or self-care (01) ==
LOC: ANHPT 08:30
PROVIDERS: Visit Provider Nurse Practitioner Family
DX: R42 Dizziness and giddiness (principal)
CPT/HCPCS: 97110; 97162

== ENCOUNTER 2021-05-09 11:48 | Observation (INO) | payer MEDICARE, SELFPAY ==
[2021-05-09] VITALS (7 sets, daily range): BP systolic 140–175; BP diastolic 80–105; PULSE 70–95; RESP 14–22; TEMP 35.8–36.7; O2SAT 99–100; BMI 30.7
--- NOTE | ~2021-05-09 | XR_ITS ---
EXAMINATION: XR chest 2V EXAM DATE: 05/09/2021 13:06 INDICATION: Shortness of breath. TECHNIQUE: Frontal and lateral projections of the chest obtained and reviewed. Comparison is made to prior examination from 02/01/2021. FINDINGS: The lungs are clear. There are no pleural effusions. The cardiomediastinal silhouette is within normal limits. There is no pneumothorax suspected. The bones and soft tissues are unremarkab le. IMPRESSION: No acute cardiopulmonary findings. Reviewed, dictated and finalized at location B.
--- NOTE | ~2021-05-09 | US_ITS ---
EXAMINATION: US venous doppler [facility] EXAM DATE: 05/10/2021 11:40 INDICATION: Pulmonary embolism on yesterday's CT. TECHNIQUE: Multiple grayscale, color flow and Doppler images of the lower extremity deep venous syste ms bilaterally were obtained and reviewed. Correlation is made to CT pulmonary scan 05/09/2021. FINDINGS: RIGHT SIDE Common femoral: --------Nonocclusive thrombus. Profunda femoral: ------- Normal. Femoral: Normal. Popliteal: Normal. Posterior tibial: --------- Normal. Peroneal: Normal. Gastrocnemius: Not visualized. Soleus: Not visualized. Greater saphenous: -----Nonocclusive thrombus. Lesser saphenous: ------ Not visualized. LEFT SIDE Common femoral: -------- Normal. Profunda femoral: ------- Normal. Femoral: Nonocclusive thrombus. Popliteal: Normal. Posterior tibial: --------- Normal. Peroneal: Normal. Gastrocnemius: Not visualized. Soleus: Not visualized. Greater saphenous: ----- Normal. Lesser saphenous: ------ Not visualized. IMPRESSION: 1. Right common femoral, left femoral nonocclusive DVT. 2. Right greater saphenous nonocclusive superficial venous thrombosis. Reviewed, dictated and finalized at location B.
--- NOTE | ~2021-05-09 | CT_ITS ---
EXAMINATION: CTA chest PE protocol DATE: 05/09/2021 15:26 INDICATION: Soreness of breath. Elevated d-dimer. TECHNIQUE: Computed tomography (CT) pulmonary angiogram of the chest was performed with 100 mL Omnipa que-350 intravenous contrast. Additional 3D reconstructions utilizing coronal maximum intensity proje ction (MIP) were performed. Automated exposure control and iterative reconstruction technique were em ployed. The dose-length product was 332.13 mGy-cm. COMPARISON: None FINDINGS: Excellent contrast opacification of the pulmonary arteries. There is mild streak artifact from dense contrast in the superior vena cava and right atrium. Minimal scattered respiratory motion artifact wh ich does not significantly limit evaluation. There is a pulmonary arterial filling defect extending b etween the right upper lobar and into the right lower lobar pulmonary artery consistent with pulmonar y embolism. No other pulmonary emboli identified. Mild groundglass opacity throughout the lungs with dependent predominance likely related to poor inspiratory effort. No pneumonia, pulmonary edema or pl eural effusion. Heart size is normal. Or no leftward bowing of the ventricular septum to suggest righ t heart strain. No pericardial effusion. Thoracic aorta is normal in caliber with no dissection. No p athologically enlarged thoracic lymphadenopathy. Visualized upper abdomen is unremarkable. Thoracolum bar dextroscoliosis with mild spondylosis. IMPRESSION: 1. Single long pulmonary embolism extending between the right upper and right lower lobar pulmonary a rteries. Reviewed, dictated and finalized at location A. IMPRESSION: 1. Single long pulmonary embolism extending between the right upper and right l ower lobar pulmonary arteries.
--- NOTE | ~2021-05-09 | XR_ITS ---
EXAMINATION: XR chest 2V DATE: 05/12/2021 12:28 INDICATION: Decreased breath sound TECHNIQUE: frontal and lateral views of the chest were obtained. COMPARISON: Chest radiograph and CT dated 05/09/2021 FINDINGS: The lungs remain clear with no focal airspace opacities, pulmonary edema, pleural effusion or pneumot horax. The cardiomediastinal silhouette is normal. Partially visualized instrumentation for lower cer vical posterior spinal fusion with bilateral vertical sanjeev and lateral mass screws at C5, C6 and C7. IMPRESSION: 1. No acute cardiopulmonary disease. Reviewed, dictated and finalized at location A.
--- NOTE | 2021-05-09 12:21 | ECG_ITS ---
SINUS RHYTHM VOLTAGE CRITERIA FOR LVH BASELINE ARTIFACT- I, II, III, AVR, AVL, AVF, V3-V6 BORDERLINE ECG Electronically Signed On 05-10-2021 8:13:18 CDT by Alan SEWELL
--- NOTE | 2021-05-09 12:27 | ED.GENADULT ---
HPI - General Adult General Chief complaint: Dizziness Stated complaint: SOB, dizziness Time Seen by Provider: 05/09/21 12:04 Source: patient and RN notes reviewed Mode of arrival: ambulatory Limitations: no limitations History of Present Illness HPI narrative: This is a 75 year old female with history of anxiety, hyperlipidemia, hypertension and sleep apnea who presents for evaluation of shortness of breath. She wears CPAP at night and she reports she got a new mask yesterday. She woke up this morning around 5 am feeling short of breath, shaky, anxious, mouth dryness . She reports her alarm was going off on her CPAP machine stating that her mask had a leak. She continued to make adjustments to her mask but she could not get alarm to go off. She felt like air was not going into her nose but going into her mouth. She continues to feels some shortness of breath. She denies chest pain, sob, fever, or wheezing. Related Data Home Medications Medication Instructions Recorded Confirmed nifedipine 30 mg tablet,extended 30 mg PO DAILY 09/15/19 05/09/21 release azelastine 137 mcg INTRANASAL DAILY 02/01/21 05/09/21 carvedilol 12.5 mg PO BID 02/01/21 05/09/21 pravastatin 20 mg PO DAILY 02/01/21 05/09/21 albuterol sulfate 2 puff INHALATION Q4H PRN 05/09/21 05/09/21 buspirone 10 mg PO TID 05/09/21 05/09/21 gabapentin 100 mg PO BID 05/09/21 05/09/21 losartan 25 mg PO DAILY 05/09/21 05/09/21 omeprazole 40 mg PO DAILY 05/09/21 05/09/21 venlafaxine 37.5 mg PO BID 05/09/21 05/09/21 Allergies Allergy/AdvReac Type Severity Reaction Status Date / Time No Known Allergies Allergy Unknown Verified 02/01/21 15:17 Review of Systems Review of Systems: All systems reviewed & are unremarkable except as noted in HPI and below PMFSH Past Medical History Medical History Anxiety disorder, unspecified Essential hypertension Gastro-esophageal reflux disease without esophagitis History of TIAs Per patient; I cannot find any documentation Hypercholesterolemia Hyperlipidemia Obstructive sleep apnea on CPAP Right carpal tunnel syndrome Unspecified osteoarthritis, unspecified site Vertigo Surgical History Surgical History Hx of cervical spine surgery Family History Family History Mother Family history unknown Patient's mother is in her 20s, possibly of exposure Father Malignant neoplasm of prostate Social History Social History Smoking status: Never smoker Second hand tobacco smoke exposure: No Alcohol intake: never Substance use: never Substance use type: does not use Gender identity (if verbalized by the patient): Female Sexual Orientation (if Verbalized by the Patient): Straight or Heterosexual Spiritual care concerns: No Exam Const: General: no acute distress and alert Orientation/consciousness: patient oriented x3 Eyes: EOM: EOMs intact bilaterally Resp: Effort & Inspection: normal respiratory effort, retractions and no use of accessory muscles Auscultation: clear to auscultation bilaterally Cardio: Rate: regular rate Rhythm: regular rhythm Heart sounds: no murmurs GI: GI Palp: Yes Soft to palpation, No Tenderness to palpation present (GI) and No Guarding due to palpation present (GI) Auscultation: normal bowel sounds Skin: General skin exam: normal color Rashes: no rashes Neuro: General: patient oriented x3, moves all extremities and CN's II-XI intact bilaterally Extrem: General: normal to inspection Psych: Mental Status: mental status grossly normal Affect: normal affect Course Consultations Consultation #1: I discussed case with DR. Mahan who works with pcp. I discussed option of treating as outpatient. She rec
[2021-05-09 12:48] LABS: Alveolar/Arterial O2 Gradient 28.1 mmHg; Base Excess ABG 1.1 mEq/l (+/-2.0); Carboxyhemoglobin 0.7 % THb (0-2.0); Fractional Inspired Oxygen 21 %; HCO3 ABG 25.6 mEq/l (22.0-26.0); Methemoglobin ABG 0.3 %THb (0-1.5); Oxygen Content ABG 16.8 %vol (16.0-22.0); Oxygen Saturation ABG 95.1 % (95.0-100.0); Oxyhemoglobin 93.8 % THb (90.0-100.0); PCO2 ABG 40.2 mmHg (35.0-45.0); PO2 ABG 73.5 mmHg (80.0-100.0); Reduced Hemoglobin 5.2 %THb (0-5.0); Total Hemoglobin 12.7 g/dL (12.0-18.0); pH ABG 7.422 (7.350-7.450)
[2021-05-09 12:49] LABS: Device ROOM AIR; Modified Allen's Test Pass; Site Drawn LEFT RADIAL
[2021-05-09 14:19] LABS: Basophils Percent Auto 0.7 % (0.2-1.2); Eosinophils Absolute Auto 0.3 K/mm3 (0-0.3); Eosinophils Percent Auto 4.9 % (0-4.4); Hemoglobin 11.7 g/dL (12.0-15.0); Immature Granulocyte Absolute 0.01 K/mm3 (0.00-0.031); Immature Granulocyte Percent A 0.2 % (0-0.5); Lymphocytes Percent Auto 58.1 % (18.3-44.2); Mean Corpuscular HGB Conc 30.8 g/dl (32-36); Mean Corpuscular Hemoglobin 24.4 pg (26-34); Mean Corpuscular Volume 79.3 fl (80-100); Mean Platelet Volume 9.7 fl (7.4-10.4); Monocytes Absolute Auto 0.4 K/mm3 (0.1-0.6); Monocytes Percent Auto 6.7 % (2.6-8.5); Neutrophils Absolute Auto 1.6 K/mm3 (1.3-6.7); Neutrophils Percent Auto 29.4 % (45.5-73.1); Platelet Count Result 211 k/mm3 (150-375); Red Blood Count 4.79 M/mm3 (4.2-5.4); White Blood Count 5.5 K/mm3 (4.5-10.0)
[2021-05-09 14:29] LABS: Alanine Aminotransferase 22 U/L (4-35); Albumin Level 4.4 g/dL (3.5-5.1); Alkaline Phosphatase 88 U/L (38-126); Anion Gap 14 mmol/L (8-16); Aspartate Amino Transferase 35 U/L (14-36); Bilirubin,Total 0.4 mg/dL (0.2-1.3); Blood Urea Nitrogen 10 mg/dL (7-17); Calcium 9.2 mg/dL (8.4-10.2); Carbon Dioxide 26 mmol/L (22-30); Chloride 102 mmol/L (98-107); Estimated CRCL calculation 53 ml/min; Estimated Glomerular Filt Rate > 60; Glucose 116 mg/dL (65-110); INR 0.9; Potassium 3.9 mmol/L (3.4-5.0); Prothrombin Time 12.2 Seconds (11.1-14.7); Sodium 142 mmol/L (137-145)
[2021-05-09 14:30] LABS: Partial Thromboplastin Time 25.8 SECONDS (22.3-36.8)
[2021-05-09 14:32] LABS: D Dimer 2.28 ug/mL (<0.48)
[2021-05-09 14:40] LABS: NT Pro B Type Natriuretic Pept 40 pg/mL (5-100); Troponin I < 0.012 ng/mL (0.000-0.034)
[2021-05-09] MEDS: RIVAROXABAN 15 MG TABLET PO (16:46)
--- NOTE | 2021-05-09 19:47 | ADMGEN ---
This patient, Tiffani Almendarez, was admitted to Medical Room 243-. Patient/family oriented to hospital policies and general routines including ID bracelet, bed and alarms, visiting hours, pain management, procedures, bathroom and other care routines, personal items, smoking policy, room service/diet, and visiting hours. Information on how to activate the Rapid Response Team has been discussed. Patient/Family are encouraged to report perceived risks to care and to ask questions if they do not understand what they are told or what they should do.
--- NOTE | 2021-05-09 23:52 | PM.IMHP ---
H&P: HPI History of Present Illness Date/Time: 05/09/21 23:52 this is a 75-year-old female patient who has a history of anxiety, hyperlipidemia, hypertension and obstructive sleep apnea. The patient came to the emergency room for evaluation of shortness of breath. The patient stated that she is wearing her CPAP during the night and she has just gotten a new mask yesterday. She woke up at 5:00 a.m. in the morning and felt very short of breath. She was anxious and shaky as well. The patient stated that the alarm was going off under CPAP and she felt that maybe she had a leak in her mask. She could get her mask adjusted and could get the alarm go off. The patient stated that she just felt short of breath and do something was wrong. Chest x-ray was read as no acute cardiopulmonary findings. Chest x-ray was read as single long pulmonary embolism extending between the right upper and right lower lobe pulmonary arteries. The patient was started on Xarelto and felt well enough to go home. However her primary care doctor was notified and recommended that the patient stay overnight. The patient is talking in full sentences and tolerating her CPAP machine well. She denies any further shortness of breath. The patient stated that she has been having some leg cramps as well. She has not had any recent travel or surgery. The patient is being admitted for observation status on the date of service of 05/09/2021. Chief Complaint: Shortness of breath Review of Systems Review of Systems: All systems reviewed & are unremarkable except as noted in HPI and below Constitutional: Constitutional: Reports as per HPI and Reports no additional constitutional complaints Eyes: Eyes: Reports as per HPI and Reports no additional eye complaints ENT: Reports system reviewed and no additional complaints, except as documented and Reports Normal hearing present Cardiovascular: Cardiovascular: Reports no additional cardiovascular complaints Respiratory: Respiratory: Reports no additional respiratory complaints and Reports no additional respiratory complaints Gastrointestinal: Gastrointestinal: Reports as per HPI and Reports no additional gastrointestinal complaints Musculoskeletal: Musculoskeletal: Reports no additional musculoskeletal complaints Integumentary/Breasts: Skin/Breast: Reports system reviewed and no additional complaints, except as docu and Reports as per HPI Neurologic: Reports system reviewed and no additional complaints, except as documented, Reports as per HPI and Reports Normal hearing present Psychiatric: Psychiatric: Reports no additional psychiatric complaints and Reports as per HPI Endocrine: Endocrine: Reports no additional endocrine complaints Hematologic/Lymphatic: Hematologic/Lymphatic: Reports no additional hematologic/lymphatic complaints Allergic/Immunologic: Allergic/Immunologic: Reports no additional allergic/immunologic complaints [facility] Past Medical History Medical History (Updated 05/10/21 @ 00:07 by Leah Rueda NP) Anxiety disorder, unspecified Essential hypertension Gastro-esophageal reflux disease without esophagitis History of brain damage History of pelvic fracture History of TIAs Per patient; I cannot find any documentation HTN (hypertension), benign Hypercholesterolemia Hyperlipidemia SAVANAH treated with BiPAP Right carpal tunnel syndrome Unspecified osteoarthritis, unspecified site Vertigo Surgical History Surgical History (Updated 05/10/21 @ 00:01 by Leah Rueda NP) History of cataract extraction Hx of cervical spine surgery C1 through C7 S/P foot surgery, right Bones spur removed Family History Family History Mother Family history unknown Patient's mother is in her 20s, possibly of exposure Father Malignant neoplasm of prostate Social History Social History (Updated 05/10/21 @ 00:02 by
[2021-05-10] VITALS (11 sets, daily range): BP systolic 106–144; BP diastolic 71–90; PULSE 70–102; RESP 16–21; TEMP 36.2–36.7; O2SAT 94–98
--- NOTE | 2021-05-10 | ECHO_ITS ---
Patient Info Name: Tiffani Almendarez Age: 75 years : 1945 Gender: Female Ht: 62 in Wt: 167 lbs BSA: 1.85 m2 HR: 71 bpm BP: 143 / 80 mmHg Technical Quality: Good Exam Date: 05/10/2021 8:40 AM Exam Location: [facility] Pulmonary Patient Status: Inpatient Admit Date: 05/09/2021 Staff Ordering Physician: Leah Rueda NP Rework Machine Operator: Aleida Kelly RDCS Attending Provider: Pepper Edwards PA-C Referring Physician: Marybeth PABON; Exam Type: CA echo doppler color flow Study Info Indications I27.82 - Chronic pulmonary embolism Complete two-dimensional, color flow and Doppler transthoracic echocardiogram is performed. Summary 1. Complete two-dimensional, color flow and Doppler transthoracic echocardiogram is performed. 2. Left ventricular systolic function is normal, estimated at 55-60%. 3. The left ventricular diastolic function is grade I diastolic dysfunction. 4. Right ventricular chamber dimension is normal. 5. Right ventricular systolic function is reduced. 6. Positive Almeida's sign. 7. There is mild tricuspid valve regurgitation. 8. No pulmonary hypertension, estimated pulmonary arterial systolic pressure is 30 mmHg. Left Ventricle Left ventricular chamber dimension is normal. Left ventricular systolic function is normal, estimated at 55-60%. There is no increased left ventricular wall thickness. Left ventricular septal wall motion is normal. The left ventricular diastolic function is grade I diastolic dysfunction. Global longitudinal strain is abnormal at -10 %. Right Ventricle Right ventricular chamber dimension is normal. Right ventricular systolic function is reduced. Left Atria Left atrial chamber dimension is normal. Right Atria Right atrial chamber dimension is normal. Atrial Septum Intact interatrial septum visualized by color flow imaging. Aortic Valve The aortic valve is trileaflet. There is no aortic valve sclerosis. There is no aortic valve stenosis. There is no aortic valve regurgitation. Pulmonic Valve The pulmonic valve is normal. There is no pulmonic valve stenosis. There is no pulmonic regurgitation. Mitral Valve The mitral valve has normal leaflets. There is no mitral valve stenosis. There is no mitral valve regurgitation. Tricuspid Valve The tricuspid valve leaflets are normal. There is no significant tricuspid valve stenosis. There is mild tricuspid valve regurgitation. No pulmonary hypertension, estimated pulmonary arterial systolic pressure is 30 mmHg. Pericardium/Pleural The pericardium appears normal. There is no pericardial effusion. Inferior Vena Cava Normal inferior vena cava with >50% collapse upon inspiration consistent with normal right atrial pressure, 5 mmHg. Aorta The aortic root size at the sinus of Valsalva is normal. The prox ascending aorta size is normal. Left Ventricular Outflow Tract Name Value Normal LVOT 2D LVOT Diameter 2.0 cm LVOT Doppler LVOT Peak Gradient 3 mmHg LVOT Mean Gradient 2 mmHg LVOT VTI 17 cm
[2021-05-10 05:51] LABS: Alanine Aminotransferase 21 U/L (4-35); Albumin Level 4.1 g/dL (3.5-5.1); Alkaline Phosphatase 86 U/L (38-126); Anion Gap 12 mmol/L (8-16); Aspartate Amino Transferase 31 U/L (14-36); Bilirubin,Total 0.6 mg/dL (0.2-1.3); Blood Urea Nitrogen 10 mg/dL (7-17); Carbon Dioxide 23 mmol/L (22-30); Chloride 103 mmol/L (98-107); Estimated CRCL calculation 47 ml/min; Estimated Glomerular Filt Rate > 60; Glucose 146 mg/dL (65-110); Potassium 4.2 mmol/L (3.4-5.0); Sodium 138 mmol/L (137-145)
[2021-05-10 07:29] LABS: Basophils Percent Auto 0.6 % (0.2-1.2); Eosinophils Absolute Auto 0.3 K/mm3 (0-0.3); Eosinophils Percent Auto 5.3 % (0-4.4); Hematocrit 37.5 % (37.0-47.0); Hemoglobin 11.6 g/dL (12.0-15.0); Lymphocytes Absolute Auto 2.94 K/mm3 (0.9-3.2); Lymphocytes Percent Auto 55.3 % (18.3-44.2); Mean Corpuscular HGB Conc 30.9 g/dl (32-36); Mean Corpuscular Hemoglobin 24.5 pg (26-34); Mean Corpuscular Volume 79.1 fl (80-100); Mean Platelet Volume 9.8 fl (7.4-10.4); Monocytes Absolute Auto 0.4 K/mm3 (0.1-0.6); Monocytes Percent Auto 7.1 % (2.6-8.5); Neutrophils Absolute Auto 1.7 K/mm3 (1.3-6.7); Neutrophils Percent Auto 31.7 % (45.5-73.1); Platelet Count Result 213 k/mm3 (150-375); Red Blood Count 4.74 M/mm3 (4.2-5.4); White Blood Count 5.3 K/mm3 (4.5-10.0)
[2021-05-10] MEDS: AZELASTINE HCL NASAL 0.1% 137 MCG/SPR 30 ML BTL 1 SPRAY NASAL (09:24)
[2021-05-10] MEDS: PRAVASTATIN SODIUM 20 MG TABLET PO (09:24)
[2021-05-10] MEDS: GABAPENTIN 100 MG CAPSULE PO ×2 (09:25→20:50)
[2021-05-10] MEDS: busPIRone HCL 10 MG TABLET PO ×3 (09:25→16:50)
[2021-05-10] MEDS: RIVAROXABAN 15 MG TABLET PO (09:25)
[2021-05-10] MEDS: NIFEdipine 30 MG TAB.ER.24 PO (09:25)
[2021-05-10] MEDS: VENLAFAXINE HCL XR 37.5 MG CAP PO ×2 (09:25→16:50)
[2021-05-10] MEDS: LOSARTAN POTASSIUM 25 MG TABLET PO (09:25)
[2021-05-10] MEDS: carvediloL 12.5 MG TABLET PO ×2 (09:25→20:50)
[2021-05-10] MEDS: PANTOPRAZOLE 40 MG TABLET PO (09:25)
--- NOTE | 2021-05-10 13:55 | ECG_ITS ---
Measurements Intervals [place] Rate: 82 P: 53 WY: 172 QRS: 16 QRSD: 83 T: 66 QT: 375 QTc: 439 Interpretive Statements SINUS RHYTHM MINIMAL Q WAVES- HIGH LATERAL LEADS BORDERLINE ECG Electronically Signed On 05-10-2021 14:25:24 CDT by Alan Hanna D.O.
--- NOTE | 2021-05-10 14:54 | PM.CNCAR ---
Assessment and Plan Assessment and plan (1) Pulmonary embolism: Code(s): I26.99 - Other pulmonary embolism without acute cor pulmonale Status: Acute Assessment and Plan: Sizable right-sided pulmonary embolism with Blanco sign suggestive of a degree of right ventricular strain by echocardiogram. Patient is not exhibiting clinical heart failure, hemodynamic compromise, significant respiratory distress or hypoxia. She is not tachypneic or tachycardia. She has no evidence of a right bundle branch block by EKG, significant tricuspid regurgitation and has normal pulmonary pressures by echocardiogram. No evidence of acute cor pulmonale at this time. PESI score 73 lower risk, negative Trop I and BNP. Discussed with Dr. Carroll and Dr. Alejo at re candidacy for catheter based therapies suc pulmonary thrombolytics and/or thrombectomy. At this time, there is not appear to be acute indication for these advanced catheter based therapies and furthermore risk anticipated to outweigh any potential clinical benefit. If she develops hemodynamic instability, hypoxia and/or heart failure symptoms depending on timing she may then be a candidate for the aforementioned treatments. For now, continue systemic anticoagulation with enoxaparin or unfractionated heparin transition to oral anticoagulation with PE/DVT dosing. Reviewed available literature length. If the patient develops intermediate-high risk features with elevated biomarkers or other concerning clinical features we would consider the above catheter based therapies with recommendations to transfer to outside hospital who is capable of performing either pulmonary section from the lytics were thrombectomy. Discussed with the patient and Dr. Key at length who are in agreement with the plan of care. Spent 75 minutes in the care of this patient Including at bedside with examination, patient discussion, discussions with providers, colleagues, chart review and medical decision making. (2) DVT (deep venous thrombosis): Code(s): I82.409 - Acute embolism and thrombosis of unspecified deep veins of unspecified lower extremity Status: Acute Assessment and Plan: Lower extremity venous Doppler reveals 1. Right common femoral, left femoral nonocclusive DVT. 2. Right greater saphenous nonocclusive superficial venous thrombosis. Systemic anticoagulation as above. (3) SAVANAH treated with BiPAP: Code(s): G47.33 - Obstructive sleep apnea (adult) (pediatric) Status: Chronic Assessment and Plan: continue therapy with BiPAP as ordered. (4) HTN (hypertension), benign: Code(s): I10 - Essential (primary) hypertension Status: Chronic Assessment and Plan: BP stable. Monitor for hypotension, tachycardia and or hypoxia. (5) Hyperlipidemia: Code(s): E78.5 - Hyperlipidemia, unspecified Status: Chronic Assessment and Plan: She remains on pravastatin. Normal coronary anatomy left heart catheterization January 2021. History of Present Illness History of Present Illness Consult date/time: Date of service: 05/10/21 14:54 Cardiology consultation at the request of Dr. Key regarding our opinion regarding pulmonary embolism management Requesting physician: Shola Key MD Consult reason: Other (pulmonary embolism) Reason For Visit: Pulmonary Embolism Narrative: patient is a very pleasant 75-year-old Afro-[place] female with past medical history significant for normal coronary anatomy on left heart catheterization February 02, 2021, hypertension, dyslipidemia, placed on BiPAP who notes she was experiencing progressive shortness of breath over the past month states she woke morning presentation more abruptly short of breath could not breathe on CPAP and presented to the ER. CT PE protocol revealed a large single thrombus in the right extending from the upper to lower lobar. 2D echocardiogram revealed preserved LV function, Matt
[2021-05-10 15:23] LABS: Troponin I < 0.012 ng/mL (0.000-0.034)
--- NOTE | 2021-05-10 15:35 | PM.IMPN ---
Progress Note: A&P Assessment and Plan (1) Pulmonary emboli: Qualifiers: Acute cor pulmonale presence: without acute cor pulmonale Chronicity: acute Pulmonary embolism type: unspecified Qualified Code(s): I26.99 - Other pulmonary embolism without acute cor pulmonale Code(s): I26.99 - Other pulmonary embolism without acute cor pulmonale Status: Acute Assessment and Plan: Patient is a 75-year-old woman with a history of hypertension, dyslipidemia, who presents emergency room with increased shortness of breath which woke her up in the middle the night with associated lightheadedness and shortness breath with exertion which prompted her to come to the emergency room for further evaluation and monitoring. Initial vitals showed a blood pressure was elevated 175/92, non tachycardic at 70 beats per minute, increased respiratory rate 22, afebrile, normal oxygenation on room air. Initial labs showed normal CBC with slight microcytic anemia. Some elevation of her lymphocytes. D-dimer was elevated at 2.28. ABG showed normal pH, pCO2 and HC03 room air. CMP was normal other than slightly elevated glucose at 116. Troponin negative. BNP normal at 40. Chest x-ray showed no acute cardiopulmonary findings. CTA completed due to elevated D-dimer showing single long pulmonary embolism extending between the right upper and right lower lobar pulmonary arteries. She was admitted to the hospital and started on Xarelto 15 mg b.i.d. for further evaluation due to her significant pulmonary embolism. Patient had venous Dopplers which showed Right common femoral, left femoral nonocclusive DVT. Right greater saphenous nonocclusive superficial venous thrombosis. Echocardiogram showing normal EF, right ventricular systolic function is reduced with a positive Almeida will sign. Patient was placed on telemetry which shows a non tachycardic rate and no signs of acute arrhythmia at this time. Cardiology was consulted due to PE findings, DVT and right heart strain. Patient was placed on bed rest until further evaluation can be discussed with the echo vascular tech Dr. Calix Industrial Relations Commissioner talked to the patient and based on her findings, stable vital signs, non tachycardic, normal oxygenation on room air, we have plans to continue monitoring the patient here in the hospital. If anything changes, becomes decompensated, then we will consider transferring her to [facility] for possible thrombectomy by [facility]. Discussed this with the patient and her daughter. Abdomen understands agrees the plan at this time. Will remain bedrest until otherwise stable. She is going to be started on Lovenox 75 mg q.12 hours starting at 9:00 p.m. tonight for treatment of her acute PE. 75 minutes of critical care time spent on this patient, evaluation, ordering tests, reviewing tests, talking to specialist, talking to [facility] about transferring the patient, talking to attending provider, the patient, patients daughter and nurse. (2) HTN (hypertension), benign: Code(s): I10 - Essential (primary) hypertension Status: Chronic Assessment and Plan: Continue with Cozaar, Coreg, and Procardia Blood pressure stable at this time 134/90. (3) Anxiety disorder, unspecified: Qualifiers: Anxiety disorder type: generalized anxiety disorder Qualified Code(s): F41.1 - Generalized anxiety disorder Code(s): F41.9 - Anxiety disorder, unspecified Status: Chronic Assessment and Plan: Continue with BuSpar, gabapentin and Effexor (4) Hyperlipidemia: Code(s): E78.5 - Hyperlipidemia, unspecified Status: Chronic Assessment and Plan: Continue pravastatin (5) SAVANAH treated with BiPAP:
[2021-05-10] MEDS: ENOXAPARIN 80 MG/0.8 ML SYRINGE 75 MG SUB-Q (20:51)
[2021-05-11] VITALS (13 sets, daily range): BP systolic 98–122; BP diastolic 59–88; PULSE 66–98; RESP 16–20; TEMP 36.2–36.7; O2SAT 92–100
[2021-05-11 06:06] LABS: Hematocrit 35.9 % (37.0-47.0); Hemoglobin 11.1 g/dL (12.0-15.0); Mean Corpuscular HGB Conc 30.9 g/dl (32-36); Mean Corpuscular Volume 77.5 fl (80-100); Mean Platelet Volume 9.2 fl (7.4-10.4); Platelet Count Result 196 k/mm3 (150-375); Red Blood Count 4.63 M/mm3 (4.2-5.4); Red Cell Distribution Width 15.9 % (11.5-14.5); White Blood Count 5.2 K/mm3 (4.5-10.0)
[2021-05-11 06:20] LABS: Anion Gap 7 mmol/L (8-16); Blood Urea Nitrogen 14 mg/dL (7-17); Calcium 8.8 mg/dL (8.4-10.2); Carbon Dioxide 23 mmol/L (22-30); Chloride 106 mmol/L (98-107); Estimated CRCL calculation 42 ml/min; Estimated Glomerular Filt Rate > 60; Glucose 168 mg/dL (65-110); Magnesium 2.1 mg/dL (1.6-2.3); Potassium 4.4 mmol/L (3.4-5.0); Sodium 136 mmol/L (137-145)
[2021-05-11 07:05] LABS: Thyroid Stimulating Hormone Reflex 0.853 uIU/mL (0.465-4.68)
[2021-05-11] MEDS: busPIRone HCL 10 MG TABLET PO ×3 (08:45→17:59)
[2021-05-11] MEDS: VENLAFAXINE HCL XR 37.5 MG CAP PO ×2 (08:46→17:59)
[2021-05-11] MEDS: PRAVASTATIN SODIUM 20 MG TABLET PO (08:46)
[2021-05-11] MEDS: GABAPENTIN 100 MG CAPSULE PO ×2 (08:46→20:28)
[2021-05-11] MEDS: carvediloL 12.5 MG TABLET PO ×2 (08:46→20:28)
[2021-05-11] MEDS: ENOXAPARIN 80 MG/0.8 ML SYRINGE 75 MG SUB-Q ×2 (08:46→20:27)
[2021-05-11] MEDS: NIFEdipine 30 MG TAB.ER.24 PO (08:46)
[2021-05-11] MEDS: PANTOPRAZOLE 40 MG TABLET PO (08:46)
[2021-05-11] MEDS: AZELASTINE HCL NASAL 0.1% 137 MCG/SPR 30 ML BTL 1 SPRAY NASAL (08:55)
--- NOTE | 2021-05-11 11:18 | PM.IMPN ---
Progress Note: A&P Assessment and Plan (1) Pulmonary emboli: Qualifiers: Acute cor pulmonale presence: without acute cor pulmonale Chronicity: acute Pulmonary embolism type: unspecified Qualified Code(s): I26.99 - Other pulmonary embolism without acute cor pulmonale Code(s): I26.99 - Other pulmonary embolism without acute cor pulmonale Status: Acute Assessment and Plan: Patient is a 75-year-old woman with a history of hypertension, dyslipidemia, who presents emergency room with increased shortness of breath which woke her up in the middle the night with associated lightheadedness and shortness breath with exertion which prompted her to come to the emergency room for further evaluation and monitoring. Initial vitals showed a blood pressure was elevated 175/92, non tachycardic at 70 beats per minute, increased respiratory rate 22, afebrile, normal oxygenation on room air. Initial labs showed normal CBC with slight microcytic anemia. Some elevation of her lymphocytes. D-dimer was elevated at 2.28. ABG showed normal pH, pCO2 and HC03 room air. CMP was normal other than slightly elevated glucose at 116. Troponin negative. BNP normal at 40. Chest x-ray showed no acute cardiopulmonary findings. CTA completed due to elevated D-dimer showing single long pulmonary embolism extending between the right upper and right lower lobar pulmonary arteries. She was admitted to the hospital and started on Xarelto 15 mg b.i.d. for further evaluation due to her significant pulmonary embolism. Patient had venous Dopplers which showed Right common femoral, left femoral nonocclusive DVT. Right greater saphenous nonocclusive superficial venous thrombosis. Echocardiogram showing normal EF, right ventricular systolic function is reduced with a positive Almeida will sign. Patient was placed on telemetry which shows NSR 85 bpm, one alarm showing artifact, no arrhythmia at this time. Cardiology was consulted due to PE findings, DVT and right heart strain. Dr. Calix Practice Advisor talked to the patient and based on her findings, stable vital signs, non tachycardic, normal oxygenation on room air, we have plans to continue monitoring the patient here in the hospital. If anything changes, becomes decompensated, then we will consider transferring her to [facility] for possible thrombectomy by [facility]. Discussed this with the patient and her daughter. Abdomen understands agrees the plan at this time. Will remain bedrest and continue monitoring for another 24 hours and consider starting Eliquis vs Xarelto tomorrow AM. until otherwise stable. Continue on Lovenox 75 mg q.12 hours for treatment of her acute PE and DVT (2) DVT (deep venous thrombosis): Code(s): I82.409 - Acute embolism and thrombosis of unspecified deep veins of unspecified lower extremity Status: Acute Assessment and Plan: see above (3) HTN (hypertension), benign: Code(s): I10 - Essential (primary) hypertension Status: Chronic Assessment and Plan: Blood pressure stable at this time 110/88. Slightly low at this time. Will hold Cozaar, continue Procardia and Coreg. Continue monitoring make adjustments as needed . (4) Anxiety disorder, unspecified: Qualifiers: Anxiety disorder type: generalized anxiety disorder Qualified Code(s): F41.1 - Generalized anxiety disorder Code(s): F41.9 - Anxiety disorder, unspecified Status: Chronic Assessment and Plan: Continue with BuSpar, gabapentin and Effexor (5) Hyperlipidemia: Code(s): E78.5 - Hyperlipidemia, unspecified Status: Chronic Assessment and Plan: Continue pravastatin (
[2021-05-11] MEDS: ACETAMINOPHEN 500 MG TABLET 1000 MG PO (21:37)
[2021-05-12] VITALS (9 sets, daily range): BP systolic 116–124; BP diastolic 67–77; PULSE 69–97; RESP 13–20; TEMP 35.6–37.1; O2SAT 95–100
[2021-05-12] MEDS: AZELASTINE HCL NASAL 0.1% 137 MCG/SPR 30 ML BTL 1 SPRAY NASAL (08:13)
[2021-05-12] MEDS: PRAVASTATIN SODIUM 20 MG TABLET PO (08:14)
[2021-05-12] MEDS: GABAPENTIN 100 MG CAPSULE PO (08:14)
[2021-05-12] MEDS: PANTOPRAZOLE 40 MG TABLET PO (08:14)
[2021-05-12] MEDS: carvediloL 12.5 MG TABLET PO (08:14)
[2021-05-12] MEDS: busPIRone HCL 10 MG TABLET PO ×2 (08:14→14:36)
[2021-05-12] MEDS: NIFEdipine 30 MG TAB.ER.24 PO (08:14)
[2021-05-12] MEDS: VENLAFAXINE HCL XR 37.5 MG CAP PO (08:15)
[2021-05-12] MEDS: RIVAROXABAN 15 MG TABLET PO (09:01)
--- NOTE | 2021-05-12 14:09 | PM.DS ---
DS: Admitting Diagnosis Admitting Diagnosis SOB DS: Discharge Diagnosis Discharge Diagnosis (1) Pulmonary emboli: Qualifiers: Acute cor pulmonale presence: without acute cor pulmonale Chronicity: acute Pulmonary embolism type: unspecified Qualified Code(s): I26.99 - Other pulmonary embolism without acute cor pulmonale Code(s): I26.99 - Other pulmonary embolism without acute cor pulmonale Status: Acute Assessment and Plan: Patient is a 75-year-old woman with a history of hypertension, dyslipidemia, who presents emergency room with increased shortness of breath which woke her up in the middle the night with associated lightheadedness and shortness breath with exertion which prompted her to come to the emergency room for further evaluation and monitoring. Initial vitals showed a blood pressure was elevated 175/92, non tachycardic at 70 beats per minute, increased respiratory rate 22, afebrile, normal oxygenation on room air. Initial labs showed normal CBC with slight microcytic anemia. Some elevation of her lymphocytes. D-dimer was elevated at 2.28. ABG showed normal pH, pCO2 and HC03 room air. CMP was normal other than slightly elevated glucose at 116. Troponin negative. BNP normal at 40. Chest x-ray showed no acute cardiopulmonary findings. CTA completed due to elevated D-dimer showing single long pulmonary embolism extending between the right upper and right lower lobar pulmonary arteries. She was admitted to the hospital and started on Xarelto 15 mg b.i.d. for further evaluation due to her significant pulmonary embolism. Patient had venous Dopplers which showed Right common femoral, left femoral nonocclusive DVT. Right greater saphenous nonocclusive superficial venous thrombosis. Echocardiogram showing normal EF, right ventricular systolic function is reduced with a positive Almeida will sign. Patient was placed on telemetry which shows NSR 75 bpm, no alarms noted over last 24hrs. Cardiology was consulted due to PE findings, DVT and right heart strain. Dr. Calix Dividing Machine Operator talked to the patient and based on her findings, stable vital signs, non tachycardic, normal oxygenation on room air, we have plans to continue monitoring the patient here in the hospital. If anything changes, becomes decompensated, then we will consider transferring her to [facility] for possible thrombectomy by [facility]. Patient is doing well at this time. She has remain bedrest and monitoring of vitals and on telemetry for the last 3 days. She has been up moving around today going back and forth to the bathroom. Denies any chest pain, shortness of breath. Vitals have remained stable and she has still had no alarms under telemetry. At this time she is stable to go home on Xarelto for treatment of PE and DVT. Told to follow with primary care in 1 week for further evaluation and monitoring. Return to ER warnings given. I discussed with the patient and her daughter and they understand and agree with the plan. All questions answered. (2) DVT (deep venous thrombosis): Code(s): I82.409 - Acute embolism and thrombosis of unspecified deep veins of unspecified lower extremity Status: Acute Assessment and Plan: see above (3) HTN (hypertension), benign: Code(s): I10 - Essential (primary) hypertension Status: Chronic Assessment and Plan: Blood pressure stable at this time 116/77. Stable. Continue home medications. (4) Anxiety disorder, unspecified: Qualifiers: Anxiety disorder type: generalized anxiety disorder Qualified Code(s): F41.1 - Generalized anxiety disorder Code(s): F41.9 - Anxiety disorder, unspecified Status: Chronic Assessment and Plan: Continue with BuSpar, gabapentin and
[2021-05-13 10:38] LABS: Lipoprotein A 40 nmol/L (<75)
[2021-05-15 04:11] LABS: Lupus dRVVT 1:1 Mix Interpreta Not Indicated; Lupus dRVVT Screen 36 sec (<=45); PTT-LA Screen 32 sec (<=40)
== END 2021-05-12 16:55 | disposition home or self-care (01) ==
LOC: ANHED 12:04 → ANH2MED 19:36
PROVIDERS: Internal Medicine Cardiovascular Disease; Nurse Practitioner; Physician Assistant; Admitting Provider Family Medicine; Emergency Provider General Practice; Visit Provider Internal Medicine
DX: I26.99 Other pulmonary embolism without acute cor pulmonale (principal); I82.411 Acute embolism and thrombosis of right femoral vein; G47.33 Obstructive sleep apnea (adult) (pediatric); I10 Essential (primary) hypertension; E78.5 Hyperlipidemia, unspecified; R06.02 Shortness of breath; F41.9 Anxiety disorder, unspecified
CPT/HCPCS: 36415; 36600; 71046; 71275; 80048; 80053; 81291; 82375; 82805; 83050; 83695; 83735; 83880; 84443; 84484; 85025; 85027; 85380; 85610; 85613; 85730; 93005; 93306; 93970; 94660; 96372; 99291; A9270; G0378; J1650; Q9967

== ENCOUNTER 2021-08-22 09:00 | Outpatient (RCR) | payer MEDICARE, SELFPAY ==
--- NOTE | 2021-07-25 10:56 | PTOPEVAL ---
PHYSICAL THERAPY EVALUATION Thank you for referring Tiffani Almendarez to [facility].? Tiffani was evaluated for the dx of back pain/gait instability. The patient is scheduled to be seen for therapy?1 x/week for 4 weeks. Please review, sign, date and return this plan of care HERMINIA. I agree with and certify that the following plan of care is medically necessary. Referring Physician Date Attending Provider: Dominic Peña MD *PT Outpatient Evaluation Start: 07/25/21 09:37 Freq: Status: Active Protocol: Document 07/25/21 09:37 MLV (Rec: 07/25/21 10:28 MLV [id number]) Therapy Assessment Status Assessment Status Assessment Status Evaluation Evaluation Information Problem Diagnosis mid back and right low back pain Onset May 2021 Cause after long car ride for a in [place] Additional Evaluation Detail The patient reports having back pain that she uses the heating pad for at home. The patient had received therapy for her back in February 2021 but has modified her exercises. Pt reports changing her exercises due to SOB issues affecting tolerance. The patient's goal is to get some back pain relief. Patient reports trouble with standing to do housework/cooking. The patient has a caregiver 5 days a week that can help her now with exercises and remembering things better. Pain Assessment Timing of Pain Assessment Timing of Pain Assessment Assessment Pain Scale Pain Scale Used Numeric (1 - 10) Self Report Pain Assessment Lower Back Reported Pain Level 4 Pain Description Pressure,Sharp,Tightness Pain Frequency Chronic Other Pain Description 6 with standing Back Reported Pain Level 4 Pain Description Spasms,Tightness Pain Frequency Acute,Chronic Other Pain Description 7 with standing activities Pain Aggravating Factors Sitting,Weight Bearing/ Standing Pain Behaviors Short of Breath Pain Score Pain Score 4,4: Self Report Interventions Used Interventions Used By Clinicians Education,Heat Cervical and Lumbar ROM Lumbar ROM Lumbar Flexion Active Knee Que
--- NOTE | 2021-08-14 09:29 | PCPTNOTE ---
Patient did not show up for scheduled appointment this date. Called & had to leave a message.
--- NOTE | 2021-08-22 09:46 | PTOPEVAL ---
PHYSICAL THERAPY DISCHARGE Thank you for referring Tiffani Almendarez to [facility] The patient has completed 4 visits for the dx of low/mid back pain. Most goals have been met and pt has peaked with skilled PT. DC PT. Please review, sign, date and return this plan of care HERMINIA. I agree with and certify that the following plan of care is medically necessary. Referring Physician Date Attending Provider: Dominic Peña MD *PT Outpatient Discharge Start: 07/25/21 09:37 Freq: Status: Active Protocol: Document 08/22/21 09:12 [facility] (Rec: 08/22/21 09:42 [facility] [id number]) Therapy Assessment Status Assessment Status Assessment Status Discharge Evaluation Information Problem Diagnosis mid back and right low back pain Onset May 2021 Cause after long car ride for a in [place] Additional Evaluation Detail The patient reports doing her exercises given along with some that she had in the past. The patient denies trouble with her exercises and has pug mill operator helper that helps her some with the exercises. The patient and the caregiver feel she is more steady on her feet when doing household tasks and caregiver reports pt compliance for HEP. Pt states the pain is less at her back and her balance feels better. Pain Assessment Timing of Pain Assessment Timing of Pain Assessment Assessment Pain Scale Pain Scale Used Numeric (1 - 10) Self Report Pain Assessment Lower Back Reported Pain Level 4 Pain Description Aching Pain Frequency Chronic Greatest Pain Intensity 6 Pain Aggravating Factors Weight Bearing/Standing Other Pain Aggravating Factors doing dishes and vacuuming Back Reported Pain Level 4 Pain Description Aching Pain Score Pain Score 4,4: Self Report Interventions Used Interventions Used By Clinicians Education,Exercise Pain Relief Interventions Used By Exercise,Heat,Ice,Inactivity/ Patient Rest,Position Change Cervical and Lumbar ROM Lumbar ROM Lumbar Flexion Active [place] Query Text:Hands to: Lumbar Extension (0-40) 10 Query Text:Active in Degrees Lumbar Lateral Flexion Right (0-40) 25 Query Text:Active in Degrees Lumbar Lateral Flexion Left (0-40
== END 2021-08-22 12:05 | disposition home or self-care (01) ==
LOC: ANHPT 09:00
PROVIDERS: PCP Family Medicine; Visit Provider Family Medicine
DX: M54.9 Dorsalgia, unspecified (principal); G89.29 Other chronic pain; Z91.81 History of falling
CPT/HCPCS: 97110; 97162; 97530

== ENCOUNTER 2021-11-01 14:56 | Emergency (ER) | payer MEDICARE, SELFPAY ==
[2021-11-01 15:07] VITALS: BP 120/98; PULSE 88; RESP 16; TEMP 36.4; O2SAT 98
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
[2021-11-01] MEDS: SODIUM CHLORIDE 0.9% IV 50 ML, TRANEXAMIC ACID 1,000 MG TOPICAL (15:31)
[2021-11-01 16:20] VITALS: BP 152/80; PULSE 82; RESP 16; TEMP 36.4; O2SAT 96
--- NOTE | 2021-11-01 16:20 | PC.NURSE ---
TXA APPLIED TO 2X2 AND APPLIED TO BLEEDING AREA ON RIGHT LOWER JAW, PT TOLERATED PROCEDURE
[2021-11-01 17:11] VITALS: BP 142/78; PULSE 80; RESP 16; O2SAT 96
[2021-11-01 18:20] VITALS: BP 146/82; PULSE 80; RESP 16; TEMP 36.4; O2SAT 97
== END 2021-11-01 18:21 | disposition home or self-care (01) ==
LOC: ANHED 15:58
PROVIDERS: Emergency Provider Emergency Medicine; PCP Family Medicine
DX: K91.840 Postprocedural hemorrhage of a digestive system organ or structure following a digestive system procedure (principal); I10 Essential (primary) hypertension; E78.5 Hyperlipidemia, unspecified; G47.33 Obstructive sleep apnea (adult) (pediatric); E11.42 Type 2 diabetes mellitus with diabetic polyneuropathy; M19.90 Unspecified osteoarthritis, unspecified site; K21.9 Gastro-esophageal reflux disease without esophagitis; E55.9 Vitamin D deficiency, unspecified; F41.9 Anxiety disorder, unspecified; Z87.820 Personal history of traumatic brain injury; Z86.718 Personal history of other venous thrombosis and embolism; Z86.711 Personal history of pulmonary embolism; Z79.01 Long term (current) use of anticoagulants; Z98.49 Cataract extraction status, unspecified eye; Z79.84 Long term (current) use of oral hypoglycemic drugs
CPT/HCPCS: 99283

== ENCOUNTER 2021-11-30 09:03 | Outpatient (CLI) | payer MEDICARE, MEDICAID, SELFPAY ==
--- NOTE | ~2021-11-30 | US_ITS ---
US venous doppler [facility] DATE: 11/30/2021 09:51 INDICATION: History of deep venous thrombosis. Patient on blood thinners. TECHNIQUE: Real-time and color flow imaging and Doppler analysis of the veins of both lower extremiti es COMPARISON: 05/10/2021 bilateral venous duplex examination FINDINGS: The greater saphenous veins are patent. There is spontaneous and phasic flow and normal aug mentation and color flow signal and normal compression of the deep veins of both lower extremities. IMPRESSION: No evidence of deep venous thrombosis of the lower extremities Reviewed, dictated and finalized at [facility]. Reviewed, dictated and finalized at location [facility].
== END 2021-11-30 09:04 | disposition home or self-care (01) ==
PROVIDERS: PCP Family Medicine; Visit Provider Internal Medicine Cardiovascular Disease
DX: Z86.718 Personal history of other venous thrombosis and embolism (principal)
CPT/HCPCS: 93970

== ENCOUNTER 2022-01-08 13:52 | Outpatient (CLI) | payer MEDICARE, MEDICAID, SELFPAY ==
[2022-01-08 14:29] LABS: Basophils Absolute Auto 0.1 K/mm3 (0.0-0.1); Basophils Percent Auto 0.9 % (0.2-1.2); Eosinophils Absolute Auto 0.1 K/mm3 (0-0.3); Eosinophils Percent Auto 2.6 % (0-4.4); Hematocrit 38.2 % (37.0-47.0); Hemoglobin 11.5 g/dL (12.0-15.0); Immature Granulocyte Absolute 0.01 K/mm3 (0.00-0.031); Immature Granulocyte Percent A 0.2 % (0-0.5); Lymphocytes Absolute Auto 2.69 K/mm3 (0.9-3.2); Lymphocytes Percent Auto 49.5 % (18.3-44.2); Mean Corpuscular HGB Conc 30.1 g/dl (32-36); Mean Corpuscular Hemoglobin 24.2 pg (26-34); Mean Corpuscular Volume 80.4 fl (80-100); Mean Platelet Volume 9.9 fl (7.4-10.4); Monocytes Absolute Auto 0.3 K/mm3 (0.1-0.6); Monocytes Percent Auto 6.1 % (2.6-8.5); Neutrophils Absolute Auto 2.2 K/mm3 (1.3-6.7); Neutrophils Percent Auto 40.7 % (45.5-73.1); Platelet Count Result 228 k/mm3 (150-375); Red Blood Count 4.75 M/mm3 (4.2-5.4); Red Cell Distribution Width 15.9 % (11.5-14.5); White Blood Count 5.4 K/mm3 (4.5-10.0)
[2022-01-08 14:33] LABS: Blood Urea Nitrogen 18 mg/dL (8-26); Carbon Dioxide 24 mmol/L (22-30); Chloride 108 mmol/L (98-109); Estimated Glomerular Filt Rate 59; Glucose 108 mg/dL (70-105); Ionized Calcium (POC) 1.17 mmol/L (1.11-1.31); Sodium 142 mmol/L (138-146)
[2022-01-08 16:17] LABS: Alanine Aminotransferase 16 U/L (4-35); Albumin Level 4.2 g/dL (3.5-5.1); Alkaline Phosphatase 61 U/L (38-126); Anion Gap 8 mmol/L (8-16); Aspartate Amino Transferase 24 U/L (14-36); Bilirubin,Total 0.1 mg/dL (0.2-1.3); Blood Urea Nitrogen 18 mg/dL (7-17); Calcium 9.1 mg/dL (8.4-10.2); Carbon Dioxide 24 mmol/L (22-30); Chloride 108 mmol/L (98-107); Estimated Glomerular Filt Rate 59; Glucose 107 mg/dL (65-110); Sodium 140 mmol/L (137-145)
== END 2022-01-08 13:53 | disposition home or self-care (01) ==
LOC: ANHLAB 13:54
PROVIDERS: PCP Family Medicine; Visit Provider Internal Medicine Hematology & Oncology
DX: I10 Essential (primary) hypertension (principal)
CPT/HCPCS: 36415; 80047; 80053; 85025

== ENCOUNTER 2022-01-22 13:45 | Outpatient (CLI) | payer MEDICARE, MEDICAID, SELFPAY ==
[2022-01-22 15:21] LABS: Basophils Percent Auto 0.3 % (0.2-1.2); Eosinophils Absolute Auto 0.2 K/mm3 (0-0.3); Eosinophils Percent Auto 2.7 % (0-4.4); Hematocrit 37.5 % (37.0-47.0); Immature Granulocyte Absolute 0.01 K/mm3 (0.00-0.031); Immature Granulocyte Percent A 0.2 % (0-0.5); Lymphocytes Absolute Auto 3.08 K/mm3 (0.9-3.2); Lymphocytes Percent Auto 51.5 % (18.3-44.2); Mean Corpuscular HGB Conc 29.3 g/dl (32-36); Mean Corpuscular Hemoglobin 23.5 pg (26-34); Mean Corpuscular Volume 80.1 fl (80-100); Mean Platelet Volume 9.7 fl (7.4-10.4); Monocytes Absolute Auto 0.3 K/mm3 (0.1-0.6); Neutrophils Absolute Auto 2.4 K/mm3 (1.3-6.7); Neutrophils Percent Auto 40.3 % (45.5-73.1); Platelet Count Result 165 k/mm3 (150-375); Red Blood Count 4.68 M/mm3 (4.2-5.4); Red Cell Distribution Width 16.5 % (11.5-14.5)
[2022-01-22 15:45] LABS: Hypochromasia 1+ (NORMAL); Platelet Estimate Adequate (Adequate)
[2022-01-22 16:14] LABS: Alanine Aminotransferase 15 U/L (6-35); Albumin Level 4.2 g/dL (3.5-5.1); Alkaline Phosphatase 68 U/L (38-126); Anion Gap 10 mmol/L (8-16); Aspartate Amino Transferase 28 U/L (14-36); Bilirubin,Total 0.4 mg/dL (0.2-1.3); Blood Urea Nitrogen 14 mg/dL (7-17); Calcium 8.9 mg/dL (8.4-10.2); Carbon Dioxide 20 mmol/L (22-30); Chloride 108 mmol/L (98-107); Estimated Glomerular Filt Rate > 60; Glucose 80 mg/dL (65-110); Potassium 4.1 mmol/L (3.4-5.0); Sodium 138 mmol/L (137-145)
[2022-01-29 21:10] LABS: Lupus dRVVT 1:1 Mix Interpreta Not Indicated; Lupus dRVVT Screen 29 sec (<=45); PTT-LA Screen 33 sec (<=40)
== END 2022-01-22 13:46 | disposition home or self-care (01) ==
PROVIDERS: PCP Family Medicine; Visit Provider Internal Medicine Hematology & Oncology
DX: Z86.718 Personal history of other venous thrombosis and embolism (principal); I10 Essential (primary) hypertension
CPT/HCPCS: 36415; 80053; 85025; 85613; 85730; 86146

== ENCOUNTER 2022-01-31 10:01 | Outpatient (CLI) | payer MEDICARE, MEDICAID, SELFPAY ==
[2022-01-31 11:27] LABS: Alanine Aminotransferase 14 U/L (6-35); Albumin Level 4.1 g/dL (3.5-5.1); Alkaline Phosphatase 61 U/L (38-126); Anion Gap 9 mmol/L (8-16); Aspartate Amino Transferase 28 U/L (14-36); Bilirubin,Total 0.5 mg/dL (0.2-1.3); Blood Urea Nitrogen 15 mg/dL (7-17); Calcium 8.7 mg/dL (8.4-10.2); Carbon Dioxide 22 mmol/L (22-30); Chloride 108 mmol/L (98-107); Estimated Glomerular Filt Rate 59; Glucose 91 mg/dL (65-110); Potassium 3.9 mmol/L (3.4-5.0); Sodium 139 mmol/L (137-145)
[2022-01-31 12:28] LABS: Hemoglobin A1C 5.4 % (<5.7)
[2022-02-02 22:10] LABS: Antithrombin III Activity 82 % normal (80-135)
[2022-02-07 15:53] LABS: Factor V (Leiden) Mutation NEGATIVE
== END 2022-01-31 10:02 | disposition home or self-care (01) ==
PROVIDERS: PCP Family Medicine; Referring Provider Internal Medicine Hematology & Oncology; Visit Provider Family Medicine
DX: E11.9 Type 2 diabetes mellitus without complications (principal); Z86.718 Personal history of other venous thrombosis and embolism; I10 Essential (primary) hypertension
CPT/HCPCS: 36415; 80053; 81240; 81241; 83036; 83090; 85300; 85303; 85306; 99212; G0463

== ENCOUNTER 2022-05-14 11:21 | Emergency (ER) | payer MEDICARE, MEDICAID, SELFPAY ==
--- NOTE | ~2022-05-14 | XR_ITS ---
EXAMINATION: XR wrist LT min 3V DATE: 05/14/2022 13:05 INDICATION: Left wrist pain. Fall. TECHNIQUE: 4 views of left wrist were obtained. COMPARISON: None. FINDINGS: Bone alignment is normal. No fracture. There is mild osteoarthritis of first carpometacarpa l joint. IMPRESSION: 1. Mild osteoarthritis of first carpometacarpal joint. Reviewed, dictated and finalized at location [facility].
--- NOTE | ~2022-05-14 | XR_ITS ---
EXAMINATION: XR hand RT min 3V INDICATION: Right hand pain TECHNIQUE: Three views of the right hand are obtained COMPARISON: None available FINDINGS: Bone alignment is normal. There is no fracture. There is moderate osteoarthritis of multipl e interphalangeal joints. IMPRESSION: 1. No acute osseous abnormality. Reviewed, dictated and finalized at location B.
--- NOTE | ~2022-05-14 | CT_ITS ---
EXAMINATION: CT cervical spine wo con DATE: 05/14/2022 12:39 INDICATION: Head injury. TECHNIQUE: Computed tomography (CT) of the cervical spine was performed without intravenous contrast. Automated exposure control and iterative reconstruction technique were employed. The dose-length pro duct was 416.02 mGy-cm. COMPARISON: None FINDINGS: There is kyphosis of cervical spine. Vertebral body heights are normal. There is mildly dec reased disc height from C3-C4 through C5-C6. There are laminectomies from C3 to C7. There are changes of posterior fusion procedure from C3 to C7 with lateral mass screws in C3, C4, and C5 and pedicle s crews in C7. There is developmental osseous central canal stenosis at C1. The following disc levels a re specifically discussed: C2-C3: There is severe bilateral uncovertebral joint osteoarthritis. There is mild bilateral facet jose int osteoarthritis. There is mild left neural foraminal stenosis. There is no central canal stenosis. C3-C4: There is moderate right and severe left uncovertebral joint osteoarthritis. There is mild bila teral facet joint hypertrophy. There is mild bilateral neural foraminal stenosis. There is mild centr al canal stenosis with posterior decompression. C4-C5: There is ankylosis of the uncovertebral joints with severe hypertrophy. There is mild bilatera l facet joint hypertrophy. There is mild bilateral neural foraminal stenosis. There is mild central c anal stenosis with posterior decompression. C5-C6: There is ankylosis of the uncovertebral joints with mild right and moderate left hypertrophy. There is mild bilateral facet joint hypertrophy. There is mild bilateral neural foraminal stenosis. T here is no central canal stenosis. C6-C7: There is moderate bilateral uncovertebral joint osteoarthritis. There is moderate bilateral fa cet joint hypertrophy. There is mild bilateral neural foraminal stenosis. There is mild central canal stenosis with posterior decompression. C7-T1: There is mild bilateral uncovertebral joint osteoarthritis. There is moderate and moderate lef t facet joint osteoarthritis. There is mild left neural foraminal stenosis. There is mild central can al stenosis with posterior decompression. IMPRESSION: 1. No fracture. 2. Posterior fusion procedure from C3 to C7. 3. Mild cervical spondylosis. Reviewed, dictated and finalized at location A.
--- NOTE | ~2022-05-14 | CT_ITS ---
EXAMINATION: CT brain wo con DATE: 05/14/2022 12:38 INDICATION: Head injury. TECHNIQUE: Computed tomography (CT) of the head was performed without intravenous contrast. The mA wa s adjusted according to patient size. Iterative reconstruction technique was employed. The dose-lengt h product was 605.33 mGy-cm. COMPARISON: Head CT 06/29/2018 FINDINGS: There are scattered areas of low attenuation in the cerebral white matter. There is no intr acranial hemorrhage, acute infarction, or abnormal intracranial mass lesion. The ventricles are deep l in size. There is mucosal thickening in the paranasal sinuses. There are likely changes of ocular l ens replacement surgeries. The mastoid air cells are normal. IMPRESSION: 1. Stable mild nonspecific cerebral white matter disease, which likely represents chronic small vesse l ischemic disease. Reviewed, dictated and finalized at location A. IMPRESSION: 1. Stable mild nonspecific cerebral white matter disease, which likely represen ts chronic small vessel ischemic disease.
--- NOTE | ~2022-05-14 | XR_ITS ---
EXAMINATION: XR hip RT min 2V DATE: 05/14/2022 13:05 INDICATION: Right hip pain TECHNIQUE: Two views of right hip were obtained. COMPARISON: None. FINDINGS: Bone alignment is normal. There is no fracture. The soft tissues are unremarkable. There ar e possible healed fractures of the inferior pubic rami. IMPRESSION: 1. No acute osseous abnormality. Reviewed, dictated and finalized at location B.
--- NOTE | ~2022-05-14 | XR_ITS ---
EXAMINATION: XR knee RT 3V DATE: 05/14/2022 13:05 INDICATION: Right knee pain TECHNIQUE: Three views of the right knee were obtained. COMPARISON: None. FINDINGS: Alignment is normal. No fracture or osteochondral lesion. Joint spaces are normal with no e rosions. A small knee joint effusion is present. Soft tissues are unremarkable. IMPRESSION: 1. Small knee joint effusion without acute osseous abnormality. Reviewed, dictated and finalized at location B.
[2022-05-14 11:19] VITALS: BP 159/91; PULSE 86; RESP 18; TEMP 36.3; O2SAT 99
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
[2022-05-14] MEDS: ACETAMINOPHEN 325 MG TABLET 650 MG PO (13:24)
== END 2022-05-14 13:53 | disposition home or self-care (01) ==
PROVIDERS: Emergency Provider Emergency Medicine; PCP Family Medicine
DX: S09.90XA Unspecified injury of head, initial encounter (principal); W01.198A Fall on same level from slipping, tripping and stumbling with subsequent striking against other object, initial encounter; I10 Essential (primary) hypertension; K21.9 Gastro-esophageal reflux disease without esophagitis; E55.9 Vitamin D deficiency, unspecified; E78.5 Hyperlipidemia, unspecified; G47.33 Obstructive sleep apnea (adult) (pediatric); E11.40 Type 2 diabetes mellitus with diabetic neuropathy, unspecified; F41.9 Anxiety disorder, unspecified; Z86.718 Personal history of other venous thrombosis and embolism; Z87.820 Personal history of traumatic brain injury; Z79.01 Long term (current) use of anticoagulants; Z79.51 Long term (current) use of inhaled steroids; Z79.84 Long term (current) use of oral hypoglycemic drugs; Z98.1 Arthrodesis status
CPT/HCPCS: 70450; 72125; 73110; 73130; 73502; 73562; 99284; A9270

== ENCOUNTER 2022-07-11 12:54 | Outpatient (CLI) | payer MEDICARE, MEDICAID, SELFPAY ==
[2022-07-11 18:49] LABS: Basophils Percent Auto 0.6 % (0.2-1.2); Eosinophils Absolute Auto 0.1 K/mm3 (0-0.3); Eosinophils Percent Auto 1.7 % (0-4.4); Hemoglobin 11.3 g/dL (12.0-15.0); Immature Granulocyte Absolute 0.01 K/mm3 (0.00-0.031); Immature Granulocyte Percent A 0.2 % (0-0.5); Lymphocytes Absolute Auto 2.42 K/mm3 (0.9-3.2); Lymphocytes Percent Auto 50.2 % (18.3-44.2); Mean Corpuscular HGB Conc 30.5 g/dl (32-36); Mean Corpuscular Hemoglobin 23.6 pg (26-34); Mean Corpuscular Volume 77.2 fl (80-100); Mean Platelet Volume 10.2 fl (7.4-10.4); Monocytes Absolute Auto 0.4 K/mm3 (0.1-0.6); Monocytes Percent Auto 8.1 % (2.6-8.5); Neutrophils Absolute Auto 1.9 K/mm3 (1.3-6.7); Neutrophils Percent Auto 39.2 % (45.5-73.1); Platelet Count Result 265 k/mm3 (150-375); Red Blood Count 4.79 M/mm3 (4.2-5.4); Red Cell Distribution Width 16.8 % (11.5-14.5); White Blood Count 4.8 K/mm3 (4.5-10.0)
[2022-07-11 19:04] LABS: LDL Cholesterol Direct 109 mg/dL
[2022-07-11 19:06] LABS: Vitamin D 25 Hydroxy 48.4 ng/mL
[2022-07-11 19:16] LABS: Alanine Aminotransferase 14 U/L (6-35); Albumin Level 4.3 g/dL (3.5-5.1); Alkaline Phosphatase 78 U/L (38-126); Anion Gap 10 mmol/L (8-16); Aspartate Amino Transferase 25 U/L (14-36); Bilirubin,Total 0.8 mg/dL (0.2-1.3); Blood Urea Nitrogen 19 mg/dL (7-17); Carbon Dioxide 22 mmol/L (22-30); Chloride 106 mmol/L (98-107); Cholesterol 220 mg/dL (0-200); Estimated Glomerular Filt Rate 53; Glucose 84 mg/dL (65-110); HDL Direct 58 mg/dL; Potassium 4.1 mmol/L (3.4-5.0); Sodium 138 mmol/L (137-145); Triglycerides 91 mg/dL (<150)
[2022-07-11 19:20] LABS: Thyroid Stimulating Hormone Reflex 0.758 uIU/mL (0.465-4.68)
[2022-07-11 19:21] LABS: Creatinine Urine 169.6 mg/dL
[2022-07-11 19:21] LABS: Hemoglobin A1C 5.7 % (<5.7)
[2022-07-11 19:26] LABS: MALB Creatinine Ratio 5.4 mg/g (0-30); Microalbumin Urine Random 9.2 mg/L (0-16.7)
== END 2022-07-11 12:55 | disposition home or self-care (01) ==
LOC: ANHGOSHLAB 12:58
PROVIDERS: PCP Family Medicine; Visit Provider Family Medicine
DX: Z00.00 Encounter for general adult medical examination without abnormal findings (principal); G62.9 Polyneuropathy, unspecified; R41.89 Other symptoms and signs involving cognitive functions and awareness; E11.9 Type 2 diabetes mellitus without complications; E55.9 Vitamin D deficiency, unspecified; I10 Essential (primary) hypertension; E78.5 Hyperlipidemia, unspecified; E53.8 Deficiency of other specified B group vitamins
CPT/HCPCS: 36415; 80053; 80061; 82043; 82306; 82607; 83036; 84443; 85025

== ENCOUNTER 2022-08-20 14:00 | Outpatient (RCR) | payer MEDICARE, MEDICAID, SELFPAY ==
--- NOTE | 2022-07-23 16:46 | PTOPEVAL1 ---
Assessment and note entered by Faye Valencia, PT Evaluation Information Assessment Status Evaluation Diagnosis dizziness and giddiness Onset 4 years ago Subjective Information Reports will be sitting still or sometimes moving and have dizziness where she feels like she is spinning Reported Pain Level Pain Score No Pain: Sourav Lewis Additional Pain Score Comments Pt reports no dizziness currently Assessment PT Clinical Summary Pt presents w/ c/o dizziness and spinning sensation sometimes with movement and sometimes without apparent movement. 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 Pt reports increased dizziness with R Shameka-Hallpike maneuver and no other inner ear testing. No nystagmus noted this date. Performed R Jeff maneuver today. Educated pt on safety with dizziness, Jeff precautions for 24 hours, and on blood pressure dizziness vs BPPV dizziness. Pt will benefit from therapy in order to address vertigo symptoms, improve balance, and educate on safety with activities. Plan of Care Interventions Neuro Re-education,Therapeutic Exercise PT Services Indicated Yes These treatments will address the objective and functional deficits as defined above. The patient will be advanced safely and appropriately in order for the patient to progress towards his/her prior level of function. Additional exercises will be introduced and as well as a comprehensive home exercise program upon discharge, if needed, ?to ensure carryover of functional gains achieved in the clinic. This treatment plan has been reviewed and agreement upon by the patient.
--- NOTE | 2022-08-06 14:05 | PCPTNOTE ---
The patient treatment was not able to be completed on [08/06/2022] due to [scheduling error and pt c/o increased blood pressure]. Will plan to continue treatment per plan of care.
--- NOTE | 2022-08-13 13:07 | PCPTNOTE ---
Patient presented to her therapy session. Reported her blood pressure prior to session was 132/105. She reported also a small headache upon entering therapy. Advised pt and her caregiver we could not perform therapy today secondary to elevated blood pressure.
--- NOTE | 2022-08-20 16:28 | PTOPPROG ---
Assessment and note entered by Faye Valencia, PT Assessment Status Progress Report Diagnosis dizziness and giddiness Onset 4 years ago Subjective Information Reports more than 50% improvement. Noted this morning when got up to the bathroom was holding the wall. States is also having sinus issues today . Caregiver states pt is not stumbling as much as before. Pt states is picking her feet up better and walking better. Assessment PT Clinical Summary Pt reports feeling more than 50% improved overall with her dizziness, and balance issues. Notes improved ambulation and caregiver also notes improvement in pt balance. Pt cont to demo symptoms with Jeff maneuver and would still benefit from improved balance and strengthening to improve functional independence. Plan of Care Interventions Gait Training,Neuro Re-education,Therapeutic Activities,Therapeutic Exercise PT Services Indicated Yes Treatment Frequency and 1-2x weekly x 4 weeks Duration These treatments will address the objective and functional deficits as defined above. The patient will be advanced safely and appropriately in order for the patient to progress towards his/her prior level of function. Additional exercises will be introduced and as well as a comprehensive home exercise program upon discharge, if needed, ?to ensure carryover of functional gains achieved in the clinic. This treatment plan has been reviewed and agreement upon by the patient.
--- NOTE | 2022-10-10 11:51 | PTOPDC ---
Assessment and note entered by Faye Valencia, PT Assessment Status Discharge - Pt Not Present Diagnosis dizziness and giddiness Onset 4 years ago Subjective Information (from re-eval 08/20/22) Reports more than 50% improvement. Noted this morning when got up to the bathroom was holding the wall. States is also having sinus issues today . Caregiver states pt is not stumbling as much as before. Pt states is picking her feet up better and walking better. Assessment PT Clinical Summary Pt was reevaluated for continuation of therapy on 08/20/22.She had been improving in her balance prior to reevaluation, and it was suggested she continue. However she has not presented to therapy since this time. Thus pt is being discharged due to nonattendance.
== END 2022-10-10 14:26 | disposition home or self-care (01) ==
LOC: ANHGOSHPT 14:00
PROVIDERS: PCP Family Medicine; Visit Provider Family Medicine
DX: R42 Dizziness and giddiness (principal)
CPT/HCPCS: 97110; 97112; 97162

== ENCOUNTER 2022-08-27 14:13 | Outpatient (CLI) | payer MEDICARE, MEDICAID, SELFPAY ==
[2022-08-27 14:28] LABS: Basophils Percent Auto 0.5 % (0.2-1.2); Eosinophils Absolute Auto 0.1 K/mm3 (0-0.3); Eosinophils Percent Auto 2.2 % (0-4.4); Hematocrit 36.4 % (37.0-47.0); Hemoglobin 11.5 g/dL (12.0-15.0); Immature Granulocyte Absolute 0.01 K/mm3 (0.00-0.031); Immature Granulocyte Percent A 0.2 % (0-0.5); Lymphocytes Absolute Auto 2.31 K/mm3 (0.9-3.2); Lymphocytes Percent Auto 42.2 % (18.3-44.2); Mean Corpuscular HGB Conc 31.6 g/dl (32-36); Mean Corpuscular Hemoglobin 24.2 pg (26-34); Mean Corpuscular Volume 76.6 fl (80-100); Mean Platelet Volume 9.4 fl (7.4-10.4); Monocytes Absolute Auto 0.4 K/mm3 (0.1-0.6); Monocytes Percent Auto 7.7 % (2.6-8.5); Neutrophils Absolute Auto 2.6 K/mm3 (1.3-6.7); Neutrophils Percent Auto 47.2 % (45.5-73.1); Platelet Count Result 221 k/mm3 (150-375); Red Blood Count 4.75 M/mm3 (4.2-5.4); White Blood Count 5.5 K/mm3 (4.5-10.0)
[2022-08-27 14:33] LABS: Blood Urea Nitrogen 15 mg/dL (8-26); Carbon Dioxide 25 mmol/L (22-30); Chloride 107 mmol/L (98-109); Estimated Glomerular Filt Rate > 60; Glucose 99 mg/dL (70-105); Ionized Calcium (POC) 1.16 mmol/L (1.11-1.31); Sodium 142 mmol/L (138-146)
[2022-08-27 16:50] LABS: Alanine Aminotransferase 17 U/L (6-35); Albumin Level 4.3 g/dL (3.5-5.1); Alkaline Phosphatase 82 U/L (38-126); Anion Gap 6 mmol/L (8-16); Aspartate Amino Transferase 24 U/L (14-36); Bilirubin,Total 0.2 mg/dL (0.2-1.3); Blood Urea Nitrogen 15 mg/dL (7-17); Calcium 9.1 mg/dL (8.4-10.2); Carbon Dioxide 26 mmol/L (22-30); Chloride 106 mmol/L (98-107); Estimated Glomerular Filt Rate > 60; Glucose 97 mg/dL (65-110); Sodium 138 mmol/L (137-145)
== END 2022-08-27 14:14 | disposition home or self-care (01) ==
LOC: ANHLAB 14:15
PROVIDERS: PCP Family Medicine; Visit Provider Internal Medicine Hematology & Oncology
DX: D68.69 Other thrombophilia (principal)
CPT/HCPCS: 36415; 80047; 80053; 85025

== ENCOUNTER 2022-09-05 11:49 | Emergency (ER) | payer MEDICARE, MEDICAID, SELFPAY ==
[2022-09-05] VITALS (20 sets, daily range): BP systolic 114–133; BP diastolic 46–81; PULSE 65–74; RESP 14–23; TEMP 37.1; O2SAT 99–100
--- NOTE | ~2022-09-05 | XR_ITS ---
Clinical Indication: Cough, shortness of breath PA and lateral views of the chest: Comparison: 05/12/2021 Findings: The lungs are clear, without evidence of focal consolidation or pleural effusion. Cardiome diastinal silhouette is within normal limits. Bones and soft tissues are unremarkable. Impression: Normal chest. Reviewed, dictated and finalized at location . 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
--- NOTE | 2022-09-05 12:01 | ECG_ITS ---
Measurements Intervals [place] Rate: 67 P: 51 OR: 173 QRS: 13 QRSD: 119 T: 47 QT: 367 QTc: 388 Interpretive Statements SINUS RHYTHM COMPARED TO ECG 05/10/2021 14:22:42 NO SIGNIFICANT CHANGES Electronically Signed On 09-05-2022 15:02:01 [employer] by Nomi Garcia M.D.
[2022-09-05 13:04] LABS: Basophils Percent Auto 0.6 % (0.2-1.2); Eosinophils Absolute Auto 0.1 K/mm3 (0-0.3); Eosinophils Percent Auto 1.9 % (0-4.4); Hematocrit 34.3 % (37.0-47.0); Hemoglobin 11.1 g/dL (12.0-15.0); Immature Granulocyte Absolute 0.01 K/mm3 (0.00-0.031); Immature Granulocyte Percent A 0.2 % (0-0.5); Lymphocytes Absolute Auto 1.99 K/mm3 (0.9-3.2); Lymphocytes Percent Auto 37.1 % (18.3-44.2); Mean Corpuscular HGB Conc 32.4 g/dl (32-36); Mean Corpuscular Hemoglobin 25.3 pg (26-34); Mean Corpuscular Volume 78.1 fl (80-100); Mean Platelet Volume 9.6 fl (7.4-10.4); Monocytes Absolute Auto 0.4 K/mm3 (0.1-0.6); Monocytes Percent Auto 8.2 % (2.6-8.5); Neutrophils Absolute Auto 2.8 K/mm3 (1.3-6.7); Platelet Count Result 202 k/mm3 (150-375); Red Blood Count 4.39 M/mm3 (4.2-5.4); Red Cell Distribution Width 17.1 % (11.5-14.5); White Blood Count 5.4 K/mm3 (4.5-10.0)
[2022-09-05 13:13] LABS: Alanine Aminotransferase 18 U/L (6-35); Albumin Level 4.1 g/dL (3.5-5.1); Alkaline Phosphatase 77 U/L (38-126); Anion Gap 7 mmol/L (8-16); Aspartate Amino Transferase 23 U/L (14-36); Bilirubin,Total 0.4 mg/dL (0.2-1.3); Blood Urea Nitrogen 15 mg/dL (7-17); Calcium 8.7 mg/dL (8.4-10.2); Carbon Dioxide 25 mmol/L (22-30); Chloride 105 mmol/L (98-107); Estimated CRCL calculation 45 ml/min; Estimated Glomerular Filt Rate > 60; Glucose 119 mg/dL (65-110); Potassium 3.9 mmol/L (3.4-5.0); Sodium 137 mmol/L (137-145)
[2022-09-05 13:36] LABS: Influenza A QL RT-PCR Negative (Negative); Influenza B QL RT-PCR Negative (Negative); SARS-CoV-2 RNA PCR Negative
[2022-09-05 16:44] LABS: NT Pro B Type Natriuretic Pept 58 pg/mL (5-100); Troponin I < 0.012 ng/mL (0.000-0.034)
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
== END 2022-09-05 19:05 | disposition home or self-care (01) ==
PROVIDERS: Emergency Medicine; Physician Assistant; Emergency Provider Emergency Medicine; PCP Family Medicine
DX: R06.00 Dyspnea, unspecified (principal); Z20.822 Contact with and (suspected) exposure to COVID-19; I10 Essential (primary) hypertension; E78.5 Hyperlipidemia, unspecified; G47.33 Obstructive sleep apnea (adult) (pediatric); E11.42 Type 2 diabetes mellitus with diabetic polyneuropathy; K21.9 Gastro-esophageal reflux disease without esophagitis; M19.90 Unspecified osteoarthritis, unspecified site; E55.9 Vitamin D deficiency, unspecified; F41.9 Anxiety disorder, unspecified; Z86.718 Personal history of other venous thrombosis and embolism; Z86.711 Personal history of pulmonary embolism; Z87.820 Personal history of traumatic brain injury; Z79.01 Long term (current) use of anticoagulants; Z98.49 Cataract extraction status, unspecified eye
CPT/HCPCS: 36415; 71046; 80053; 83880; 84484; 85025; 87636; 93005; 99284

== ENCOUNTER 2022-09-10 15:36 | Emergency (ER) | payer MEDICARE, MEDICAID, SELFPAY ==
--- NOTE | ~2022-09-10 | XR_ITS ---
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 RESULT: Lines, tubes, and devices: Incompletely visualized cervical fusion hardware. Lungs and pleura: No focal consolidation, pneumothorax, or effusion. Senescent change. Cardiomediastinal silhouette: Stable. Other: No acute osseous or upper abdominal finding. IMPRESSION: No acute cardiopulmonary process. Reviewed, dictated and finalized at location K. RONMENTAL PROTECTION INSPECTOR
[2022-09-10 15:51] VITALS: BP 129/85; PULSE 79; RESP 18; TEMP 36.8; O2SAT 99
[2022-09-10 16:43] LABS: Influenza A QL RT-PCR Negative (Negative); Influenza B QL RT-PCR Negative (Negative); RSV RNA, RT-PCR Negative (Negative); SARS-CoV-2 RNA PCR Negative
[2022-09-10 19:32] VITALS: BP 139/92; PULSE 78; RESP 16; O2SAT 99
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
[2022-09-10 20:55] VITALS: BP 138/89; PULSE 69; RESP 20; O2SAT 98
== END 2022-09-10 20:56 | disposition home or self-care (01) ==
PROVIDERS: Emergency Medicine; Emergency Provider Emergency Medicine; PCP Family Medicine
DX: J00 Acute nasopharyngitis [common cold] (principal); Z20.822 Contact with and (suspected) exposure to COVID-19; I10 Essential (primary) hypertension; E78.5 Hyperlipidemia, unspecified; E11.9 Type 2 diabetes mellitus without complications; M19.90 Unspecified osteoarthritis, unspecified site; E55.9 Vitamin D deficiency, unspecified; K21.9 Gastro-esophageal reflux disease without esophagitis; G47.33 Obstructive sleep apnea (adult) (pediatric); Z86.711 Personal history of pulmonary embolism; Z87.820 Personal history of traumatic brain injury; Z86.718 Personal history of other venous thrombosis and embolism; Z79.01 Long term (current) use of anticoagulants; Z98.49 Cataract extraction status, unspecified eye
CPT/HCPCS: 71046; 87637; 99283

== ENCOUNTER 2022-12-24 14:09 | Outpatient (CLI) | payer MEDICARE, MEDICAID, SELFPAY ==
[2022-12-24 19:29] LABS: Alanine Aminotransferase 20 U/L (6-35); Albumin Level 4.5 g/dL (3.5-5.1); Alkaline Phosphatase 69 U/L (38-126); Anion Gap 8 mmol/L (8-16); Aspartate Amino Transferase 27 U/L (14-36); Bilirubin,Total 0.6 mg/dL (0.2-1.3); Blood Urea Nitrogen 17 mg/dL (7-17); Carbon Dioxide 25 mmol/L (22-30); Chloride 107 mmol/L (98-107); Estimated Glomerular Filt Rate > 60; Glucose 109 mg/dL (65-110); Potassium 4.3 mmol/L (3.4-5.0); Sodium 140 mmol/L (137-145)
[2022-12-24 20:53] LABS: Hemoglobin A1C 6.1 % (<5.7)
== END 2022-12-24 14:10 | disposition home or self-care (01) ==
LOC: ANHGOSHLAB 14:10
PROVIDERS: PCP Family Medicine; Visit Provider Family Medicine
DX: E11.9 Type 2 diabetes mellitus without complications (principal); I10 Essential (primary) hypertension
CPT/HCPCS: 36415; 80053; 83036

== ENCOUNTER 2024-08-17 11:11 | Outpatient (CLI) | payer MEDICARE, SELFPAY ==
--- NOTE | ~2024-08-17 | XR_ITS ---
Left Shoulder Technique: AP and scapular Y views were obtained. Clinical History: Pain Findings: No fracture or dislocation is seen. Osseous alignment is anatomic. The glenohumeral joint i s intact. There is mild AC joint degenerative change. Soft tissues are unremarkable. Impression: Mild AC joint degenerative change. Reviewed, dictated and finalized at [facility]. RIVETER Impression: Mild AC joint degenerative change.
== END 2024-08-17 11:12 | disposition home or self-care (01) ==
PROVIDERS: PCP Family Medicine; Visit Provider Family Medicine
DX: M19.012 Primary osteoarthritis, left shoulder (principal)
CPT/HCPCS: 73030

== ENCOUNTER 2024-10-05 10:32 | Outpatient (CLI) | payer MEDICARE, SELFPAY ==
--- NOTE | ~2024-10-05 | XR_ITS ---
EXAMINATION: XR shoulder LT min 2V DATE: 10/05/2024 12:15 INDICATION: Left shoulder pain. TECHNIQUE: 4 views of left shoulder were obtained. COMPARISON: Left shoulder radiographs 08/17/2024 FINDINGS: There is thoracic levoscoliosis. There are changes of posterior fusion procedure in cervica l spine. No fracture. There is severe osteoarthritis of acromioclavicular joint. Glenohumeral joint i s normal. IMPRESSION: 1. Severe acromioclavicular joint osteoarthritis. Reviewed, dictated and finalized at location A. BUFFER
--- OUTSIDE RECORDS SUMMARY | 2024-10-05 11:32 | XMS_ITS | Clinical Summary ---
[facility] Address [address] [place] [address] Care Team Providers Care Director Industrial Name Role Phone Dominic Peña MD Primary Care Provider Allergies No known active allergies Medications gabapentin Take by mouth 2 times daily. Active aspirin (ECOTRIN EC) 81 mg Tablet, Delayed Release (E.C.) Take 81 mg by mouth daily. Active azelastine (ASTELIN) 137 mcg/actuation nasal spray ADMINISTER 1 SPRAY INTO EACH NOSTRIL 2 TIMES A DAY DIRECTED 07/23/20 21 Active blood sugar diagnostic (Accu-Chek Guide test strips) Strip 07/19/20 21 Active Blood-Glucose Meter (Accu-Chek Guide Me Glucose Mtr) 07/20/20 21 Active busPIRone (BUSPAR) 10 mg tablet Take 10 mg by mouth. 05/02/20 20 030 Active carvediloL (COREG) 12.5 mg tablet TAKE 1 TABLET BY MOUTH TWICE A DAY WITH FOOD 11/21/19 22 Active Cholecalciferol, Vitamin D3, 50 mcg (2,000 unit) Capsule Take 2,000 Units by mouth daily. 11/01/19 22 Active docusate sodium (COLACE) 100 mg capsule Take 100 mg by mouth. Active Accu-Chek Softclix Lancets USE TO TEST BLOOD SUGARS TWICE A DAY 11/27/19 22 Active metFORMIN (GLUCOPHAGE XR) 500 mg Extended Release 24 hour tablet Take 1,000 mg by mouth daily with breakfast. 07/18/20 21 Active omeprazole (PriLOSEC) 40 mg Capsule, Delayed Release(E.C.) Take 40 mg by mouth daily. 09/02/20 Active pravastatin (PRAVACHOL) 20 mg tablet Take 20 mg by mouth daily. 06/06/20 21 Active tiZANidine (ZANAFLEX) 2 mg Tablet Take 2 mg by mouth. 06/20/20 21 Active venlafaxine (EFFEXOR XR) 37.5 mg Extended Release 24 hour capsule Take 37.5 mg by mouth daily. 02/13/20 21 030 Active amLODIPine (NORVASC) 5 mg tablet Take 5 mg by mouth daily. 07/18/20 Active losartan (COZAAR) 50 mg tablet Take 50 mg by mouth daily. 07/02/20 Active cetirizine (ZyrTEC) 10 mg tablet Take 10 mg by mouth daily. 08/04/20 Active fluticasone propionate (FLONASE) 50 mcg/spray [place], Suspension nasal inhaler ADMINISTER 2 SPRAYS INTO EACH NOSTRIL 2 TIMES A DAY. 08/04/20 Active Xarelto 10 mg TabletIndications:S econdary hypercoagulable state,Personal history of DVT (deep vein thrombosis) TAKE 1 TABLET EVERY DAY WITH SUPPER 90 Tablet 10 06/18/20 23 Active Active Problems Problem Noted Date Diagnosed Date Secondary hypercoagulable state 01/08/2022 Encounters Date Type Department Care Team Description 08/13/2024 [facility] Oncology and Hematology [facility] [address] [place] [address] Dr [address] [place] [id number] Kota Vasquez MD Secondary hypercoagulable state; Personal history of DVT (deep vein thrombosis) from Last 3 Months Family History Medical History Relation Name Comments Cancer Father Cancer Sister 1 Relation Name Status Comments Brother 1 Alive Brother 2 Alive Daughter Alive Father Mother Sister 1 Alive Sister 2 Alive Sister 3 Alive Sister 4 Alive Son Alive Social History Tobacco Use Types Packs/Day Years Used Date Smoking Tobacco: Never Smokeless Tobacco: Never Tobacco Cessation:Counseling Given: Not Answered Alcohol Use Standard Drinks/Week Comments Never 0 (1 standard drink = 0.6 oz pur e alcohol) Comments Unknown Sex and Gender Information Value Date Recorded Sex Assigned at Not on file 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 Sex 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 Gender Identity Not on file Sexual Orientation Not on file Last Filed Vital Signs Vital Sign Reading Time Taken Comments Blood Pressure 113/77 08/27/2022 2:38 PM COSMETOLOGY INSTRUCTOR Pulse 76 08/27/2022 2:38 PM COSMETOLOGY INSTRUCTOR Temperature 36.5 ??C (97.7 ??F) 08/27/2022 2:38 PM CS T Respiratory Rate 16 08/27/2022 2:38 PM COSMETOLOGY INSTRUCTOR Oxygen Saturation 94% 08/27/2022 2:38 PM COSMETOLOGY INSTRUCTOR Inhaled Oxygen Concentration - - Weight 72.6 kg (160 lb 1.6 oz) 08/27/2022 2:38 P M COSMETOLOGY INSTRUCTOR Height 157.5 cm (5' 2 ) 02/19/2022 1:48 PM CDT Body Mass Index 29.28 02/19/2022 1:48 PM CDT Plan of Treatment Upcoming Encounters Date Type Department Care Team (Late st Contact Info) Description 12/14/2024 10:30 AM CDT Office Visit [facility] Oncology and H[facility]ology [facility] [address] [facility] [address] [place] [address] Kota Vasquez MD [address] [place] [address] Health Maintenance Due Date Last Done Comments ZOSTER VACCINE (2 of 3) 11/03/2016 09/08/2016 RSV VACCINE (60+ or ) (1 - 1-dose 75+ series) 2022 INFLUENZA VACCINE (#1) 2024 , 08/10/2020, 07/16/2018, Additional history exists Medicare Ad[place] ([place]) Preventative Visit/Annual Wellness Visit 09/08/2024 DTAP/TDAP/TD VACCINES (2 - T d or Tdap) 08/10/2030 08/10/2020 PNEUMOCOCCAL VACCINE 65+ YEARS Completed 1 09/15/2017, 04/17/2017, 06/15/2012 OSTEOPOROSIS SCREENING Completed 05/31/2020, 2016 Insurance THOMAS Row[place] [id number] [facility] Care Teams Director Industrial Relationship Specialty Start Date End Date Dominic Peña MD [address] [place] [id number] PCP - General Family Practice 12/04/21
--- OUTSIDE RECORDS SUMMARY | 2024-10-05 11:32 | XMS_ITS | Encounter Summary ---
Author Organization [facility] Healthcare Address [address] [place] [address] Care Team Providers Care Media Account Executive Name Role Phone Jamal Hwang MD Unavailable [phone] Juliet Sandoval CHEF FRENCH Primary Care Provider Vandana Lui [facility] Unavailable [phone] Dominic Peña MD Primary Care Provider Neisha Chacko NP Primary Care Provider Encounter Details Date Type Department Care Team (Late st Contact Info) Description 05/02/2021 Telephone [facility] at [address] [address] Gail Nieto, PT Social History Tobacco Use Types Packs/Day Years Used Date Smoking Tobacco: Never Smokeless Tobacco: Never Alcohol Use Standard Drinks/Week Comments No 0 (1 standard drink = 0.6 oz pur e alcohol) PHQ-2 Answer Date Recorded PHQ-2 Total Score (If total score is 3 or more points, staff should administer the PHQ-9) 2 03/29/2021 Comments No Sex and Gender Information Value Date Recorded Sex Assigned at Not on file 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 Gender Identity Not on file Sexual Orientation Not on file documented as of this encounter Plan of Treatment Not on file documented as of this encounter Visit Diagnoses Not on filedocumented in this encounter Additional Health Concerns Infection Onset Date Last Indicated Resolved Time COVID: Suspected 12/06/2022 12/06/2022 12/06/2022 4:28 PM CDT documented as of this encounter Care Teams Media Account Executive Relationship Specialty Start Date End Date Juliet Sandoval, CYNDEE [address] [facility] [address] [place] [address] PCP - General Family Medicine 10/16/20 11/19/21 Dominic Peña MD [address] [place] [address] [address] [place] [address] PCP - General Family Practice 11/20/21 04/14/23 Neisha Chacko NP [address] [place], [place] [id number] PCP - General Family Medicine 04/15/23 Jamal Hwang MD [address] [facility] [address] [place] [address] Consulting Physician Cardiology 08/10/20 Vandana Lui, [facility] [address] [place] [address] Pharmacist Pharmacy 06/14/21 06/17/21 documented as of this encounter
--- OUTSIDE RECORDS SUMMARY | 2024-10-05 11:32 | XMS_ITS | Clinical Summary ---
Author Organization [facility] Address [address] [place] [id number] Care Team Providers Care Harness Inspector Name Role Phone Jamal Hwang MD Unavailable Neisha Chacko NP Primary Care Provider Allergies No known active allergies Medications docusate sodium (COLACE) 100 mg capsuleIndicati ons:constipatio n Take 1 capsule (100 mg total) by mouth 3 (three) times a day as needed for constipation Active albuterol HFA (ProAir HFA) 90 mcg/actuation inhalerIndicati ons:SOB (shortness of breath) Inhale 2 puffs every 4 (four) hours as needed for wheezing or shortness of breath 8.5 g 02/13/20 21 Active azelastine (ASTELIN) 137 mcg (0.1 %) nasal sprayIndication s:Seasonal allergies ADMINISTER 1 SPRAY INTO EACH NOSTRIL 2 TIMES A DAY DIRECTED 30 mL 1 07/23/20 21 Active Accu-Chek Guide test strips strip 07/19/20 21 Active Accu-Chek Guide Me Glucose Mtr misc 07/20/20 21 Active Accu-Chek Softclix Lancets lancets 07/19/20 21 Active aspirin 81 mg enteric coated tablet Take 1 tablet (81 mg total) by mouth daily Active losartan (COZAAR) 50 mg tablet Take 1 tablet (50 mg total) by mouth daily 02/12/20 23 Active Xarelto 10 mg tablet Take 1 tablet (10 mg total) by mouth daily 03/05/20 23 Active iron bis glycinat-vit C-FA-B12 (Gentle Iron) 28 mg iron-60mg -400 mcg-8 mcg capsule Take 1 capsule by mouth daily Active gabapentin (NEURONTIN) 300 mg capsule Take 1 capsule (300 mg total) by mouth 2 (two) times a day 180 capsule 3 04/27/20 23 Active busPIRone (BUSPAR) 10 mg tabletIndicatio ns:Generalized Anxiety Disorder Take 1 tablet (10 mg total) by mouth 3 (three) times a day 270 tablet 3 04/27/20 23 Active metFORMIN XR (GLUCOPHAGE XR) 500 mg 24 hr tablet Take 2 tablets (1,000 mg total) by mouth 2 (two) times a day with meals 180 tablet 3 10/30/19 24 Active diclofenac sodium (VOLTAREN) 1 % gel Apply 4 g topically 4 (four) times a day 200 g 3 10/30/19 24 Active Vitamin D3 50 mcg (2,000 unit) capsule Take 1 capsule (2,000 Units total) by mouth daily 10/30/19 24 Active omeprazole (PriLOSEC) 40 mg capsule TAKE 1 CAPSULE EVERY DAY 90 capsule 3 02/19/20 24 Active carvediloL (COREG) 12.5 mg tabletIndicatio ns:Essential hypertension TAKE 1 TABLET TWICE DAILY WITH MEALS 180 tablet 3 02/23/20 24 Active pravastatin (PRAVACHOL) 20 mg tablet TAKE 1 TABLET EVERY DAY 90 tablet 3 04/22/20 24 Active venlafaxine XR (EFFEXOR-XR) 75 mg 24 hr capsule Take 1 capsule (75 mg total) by mouth daily 90 capsule 3 06/03/20 24 Active amLODIPine (NORVASC) 5 mg tablet TAKE 1 TABLET EVERY DAY 90 tablet 3 06/03/20 24 Active tiZANidine (ZANAFLEX) 2 mg tabletIndicatio ns:Mid back pain, chronic TAKE 1 TABLET (2 MG TOTAL) BY MOUTH EVERY 6 (SIX) HOURS NEEDED FOR MUSCLE SPASMS 90 tablet 3 06/03/20 24 Active cetirizine (ZyrTEC) 10 mg tablet TAKE 1 TABLET EVERY DAY 90 tablet 3 08/16/20 24 Active fluticasone propionate (FLONASE) 50 mcg/actuation nasal spray ADMINISTER 1 SPRAY INTO EACH NOSTRIL 2 (TWO) TIMES A DAY 48 g 3 09/09/19 25 Active fluticasone propionate (FLONASE) 50 mcg/actuation nasal spray ADMINISTER 1 SPRAY INTO EACH NOSTRIL 2 (TWO) TIMES A DAY 48 g 3 11/20/19 24 2024 Discontinued Active Problems Problem Noted Date Diagnosed Date Class 1 obesity due to exces s calories with serious comorbidity and body mass index (BMI) of 31.0 to 31.9 in adult 10/30/2023 Assessment & Plan (10/30/2023 12:39 PM COIN BOX COLLECTOR): HPI: Condition is not at/near goal goal BMI <30 A&P: Healthy, high-protein, lower carbohydrate, lower fat lifestyle and exercise for 150min/week recommended Recommend tracking everything you put in your mouth on an andie like [employer] Increase protein in diet. Examples: 1 whole egg and 2 servings of egg whites, or 2 whole eggs and 1/4 cup low fat cottage cheese, protein supplement shakes, [facility] core power elite shake has 42 g of protein, the plan core power shakes have 26 g of protein, protein bars, protein:ratio yogurt, oikos pro yogurt, or oikos triple zero yogurt with a scoop of protein powder, increased meat intake, low fat cottage cheese, collagen peptides-these can sometimes be used as a creamer in your coffee Lower carb substitutions: [employer] carries a zero net carb bread If you are looking for whole potatoes, like to use in soup or new potato shape/flavor, radishes are a great replacement If you are looking for mashed potatoes, riced cauliflower in the frozen bag section are a great replacement For pasta, try using zucchini noodles, lay them out on a cookie sheet and pat dry with a tea towel to try to remove as much moisture as possible. Heat your pasta sauce on the stove and put the noodles in for 30-45 seconds. If you leave them in much longer they will become mushy [place] and/or coconut flour instead of regular flour For pizza dough, try fathead pizza dough recipe online. To get a crispy crust, bake on one side for 8-12 min, then flip over and bake on the other side for 8-12 min, then put toppings on and bake until the cheese on top of pizza melts chaffles recipe online For ice cream, try the brand Enlightened To replace coffee creamer and make it low carb, use heavy creamer with sugar free Torani sweetener For chips, try Whisps or pork rinds For yogurt, try Two Good rwandan yogurt Use Pinterest for recipe ideas. Type in low carb... Hand Measurements: A fist or cupped hand = 1 cup 1 cup = 1??-2 servings of fruit juice 1 oz. of cold cereal 2 oz. of cooked cereal, rice or pasta 8 oz. of milk or yogurt A thumb = 1 oz. of cheese Consuming low-fat cheese helps you meet the required servings from the milk, yogurt and cheese group. 1?? oz. of low-fat cheese counts as 8 oz. of milk or yogurt. Handful = 1-2 oz. of snack food Thumb tip = 1 teaspoon Keep high-fat foods, such as peanut butter and mayonnaise, at a minimum. One teaspoon is equal to the end of your thumb, from the knuckle up. Three teaspoons equals 1 tablespoon. Palm = 3 oz. of meat Choose lean poultry, fish, shellfish and beef. One palm size portion equals 3 oz. for an adult and 1??-2 oz. for a child under 5. 1 tennis ball or a fist= 1/2 cup of fruit and vegetables Healthy diets include a variety of colorful fruits and vegetables every day. The secret to serving size is in your hand. Snacking can add up. Remember, 1 handful equals 1 oz. of nuts and small candies. For chips and pretzels, 2 handfuls equals 1 oz. Because hand sizes vary, compare your fist size to an actual measuring cup. Adenopathy 10/30/2023 Vitamin D deficiency 10/29/2023 Assessment & Plan (10/30/2023 12:33 PM COIN BOX COLLECTOR): HPI: Condition is not at/near goal A&P: Discussed/ordered labs, encouraged healthy, low carbohydrate lifestyle and at least 150min/week of exercise, Take over the counter vit d3 capsules 1583-1623 units daily-this will be a watermelon inspector medication. Please try to get 15 min of unsunscreened time daily with as much skin showing as possible. Anything more than 15 min, please use sunscreen. Bilateral leg pain 04/24/2023 Assessment & Plan (10/30/2023 12:35 PM COIN BOX COLLECTOR): HPI: Condition is stable A&P: Discussed/ordered labs, encouraged healthy, low carbohydrate lifestyle and at least 150min/week of exercise, continue on tizanidine 2mg as needed Recommend muscle rubs such as bengay/icyhot, may use heat packs patient may trial on Vital Proteins Collagen Peptides two capfuls a day to help with joints Diabetes mellitus due to und erlying condition, uncontrolled, with hyperglycemia 04/15/2023 Assessment & Plan (10/30/2023 12:33 PM COIN BOX COLLECTOR): Condition is not at/near goal Personally reviewed A1c 7.7% goal A1c 6.9% or less, as close to <6.5% Lab Results Component Value Date HGBA1C 7.7 (H) 10/28/2023 HGBA1C 8.0 04/15/2023 HGBA1C 5.3 12/08/2014 Maintenance Diabetic (Monofilament) foot exam - 04/15/23 protective senses intact, loss of protective senses. Annual dilated eye exams. Last dilated eye exam was 07/23/23 Annual Urine microalbumin/creatinine ratio - 04/15/23 Lab Results Component Value Date ALBCREATRATU <23 04/15/2023 Immunizations: due for shingrix vaccine. Needs to be given at pharmacy BP management B/P today- good Patient is currently is on an JUAN ANTONIO/ARB losartan Goal blood pressure is <140/90, long-term blood pressure goal is to be as close to 120/80 as possible. Dyslipidemia management Personally reviewed most recent LDL as shown below. Patient is on a statin cholesterol lowering medication losartan Goal of less than 70 Lab Results Component Value Date LDLCALC 94 10/28/2023 Diabetes Complications History of macrovascular disease (CVA, [place], PVD) is Present. 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 Discussed eating a healthy low carb diet, include fresh fruits and vegetables daily. Diabetic education and nutritional counseling available if you have not had this before or annually. Encouraged to try moving at least a total of 30 minutes/day. Just move more. Instructed to wash, dry, lotion and check feet daily. Instructed to notify office if blood sugars are less than 80 or greater than 250 for 3 days Assessment & Plan (04/15/2023 1:59 PM CDT): Condition is worsening Personally reviewed A1c 8% was 5.4% goal A1c 6.9% or less, as close to <6.5% Lab Results Component Value Date HGBA1C 8.0 04/15/2023 HGBA1C 5.3 12/08/2014 Maintenance Diabetic (Monofilament) foot exam - today 04/15/2023 protective senses intact Annual dilated eye exam due now. Eye exam form given. Annual Urine microalbumin/creatinine ratio - today 04/15/2023 Lab Results Component Value Date ALBCREATRATU <34 (H) 01/22/2021 Immunizations: recommend shingrix at local pharmacy BP management B/P today- 122/76 good Patient is currently is on an JUAN ANTONIO/ARB losartan Goal blood pressure is <140/90, long-term blood pressure goal is to be as close to 120/80 as possible. Dyslipidemia management Personally reviewed most recent LDL as shown below. Patient is on a statin cholesterol lowering medication pravastatin Goal of less than 70 Lab Results Component Value Date LDLCALC 74 01/22/2021 Diabetes Complications History of macrovascular disease (CVA, MO, PVD) is Present. 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 (Recommend once daily for the first week, then increase) Recommend probiotic 40-50 billion CFU daily to help create a healthy gut biome. Discussed labs/ordered labs that have been ordered if applicable. Discussed eating a healthy low carb diet, include fresh fruits and vegetables daily. Diabetic education and nutritional counseling available if you have not had this before or annually. Encouraged to try moving at least a total of 30 minutes/day. Just move more. Instructed to wash, dry, lotion and check feet daily. Instructed to notify office if blood sugars are less than 80 or greater than 250 for 3 days Chronic anticoagulation 07/13/2021 Assessment & Plan (10/30/2023 12:26 PM COIN BOX COLLECTOR): HPI: Condition is stable A&P: Discussed/ordered labs, encouraged healthy, low carbohydrate lifestyle and at least 150min/week of exercise, continue on amlodipine 5mg daily, aspirin 81mg daily, carvedilol 12.5mg daily with meals, losartan 50mg daily, xarelto 10mg daily, continue to see Dr. Hwang cardiology Assessment & Plan (05/01/2023 11:57 AM CDT): HPI: Condition is stable A&P: Discussed/ordered labs, encouraged healthy, low carbohydrate lifestyle and at least 150min/week of exercise, continue on Xarelto 20 mg daily Assessment & Plan (04/15/2023 8:21 AM CDT): HPI: Condition is stable A&P: Discussed/ordered labs, encouraged healthy, low carbohydrate lifestyle and at least 150min/week of exercise, continue on Xarelto 20 mg daily Assessment & Plan (07/22/2021 9:28 PM COIN BOX COLLECTOR): Con't use of xarelto 20 mg daily for PE/VTE prophylaxis. No s/s of bleeding/bruising/melena or hematochezia is noted today. History of pulmonary embolism 06/06/2021 Assessment & Plan (10/30/2023 12:25 PM COIN BOX COLLECTOR): HPI: Condition is stable A&P: Discussed/ordered labs, encouraged healthy, low carbohydrate lifestyle and at least 150min/week of exercise, continue on amlodipine 5mg daily, aspirin 81mg daily, carvedilol 12.5mg daily with meals, losartan 50mg daily, xarelto 10mg daily, continue to see Dr. Hwang cardiology Assessment & Plan (05/01/2023 11:57 AM CDT): HPI: Condition is stable A&P: Discussed/ordered labs, encouraged healthy, low carbohydrate lifestyle and at least 150min/week of exercise, continue on Xarelto 20 mg daily Assessment & Plan (04/15/2023 8:21 AM CDT): HPI: Condition is stable A&P: Discussed/ordered labs, encouraged healthy, low carbohydrate lifestyle and at least 150min/week of exercise, continue on Xarelto 20 mg daily Assessment & Plan (07/22/2021 9:29 PM COIN BOX COLLECTOR): Con't use of xarleto 20 mg daily for prophylaxis. History of DVT (deep vein thrombosis) 06/06/2021 Assessment & Plan (10/30/2023 12:25 PM COIN BOX COLLECTOR): HPI: Condition is stable A&P: Discussed/ordered labs, encouraged healthy, low carbohydrate lifestyle and at least 150min/week of exercise, continue on amlodipine 5mg daily, aspirin 81mg daily, carvedilol 12.5mg daily with meals, losartan 50mg daily, xarelto 10mg daily, continue to see Dr. Hwang cardiology Assessment & Plan (05/01/2023 11:57 AM CDT): HPI: Condition is stable A&P: Discussed/ordered labs, encouraged healthy, low carbohydrate lifestyle and at least 150min/week of exercise, continue on Xarelto 20 mg daily Assessment & Plan (04/15/2023 8:21 AM CDT): HPI: Condition is stable A&P: Discussed/ordered labs, encouraged healthy, low carbohydrate lifestyle and at least 150min/week of exercise, continue on Xarelto 20 mg daily Recurrent chest pain 01/23/2021 Overview (01/23/2021): Added automatically from request for surgery [id number] Assessment & Plan (10/30/2023 12:25 PM COIN BOX COLLECTOR): HPI: Condition is stable no acitve chest pain today A&P: Discussed/ordered labs, encouraged healthy, low carbohydrate lifestyle and at least 150min/week of exercise, continue on amlodipine 5mg daily, aspirin 81mg daily, carvedilol 12.5mg daily with meals, losartan 50mg daily, xarelto 10mg daily, continue to see Dr. Hwang cardiology Assessment & Plan (05/01/2023 11:57 AM CDT): At last office visit we referred patient to cardiology Assessment & Plan (04/15/2023 8:20 AM CDT): ? Gait instability 01/22/2021 Assessment & Plan (10/30/2023 12:25 PM COIN BOX COLLECTOR): HPI: Condition is not at/near goal A&P: will order PT for gait stability Assessment & Plan (05/01/2023 2:52 PM CDT): HPI: Condition is stable A&P: Discussed/ordered labs, encouraged healthy, low carbohydrate lifestyle and at least 150min/week of exercise, Does use a single point cane, uses walker if going far distances. Pt cannot walk more than 50 ft without taking a break Will order additional physical therapy for gait stability Assessment & Plan (04/15/2023 8:19 AM CDT): HPI: Condition is stable A&P: Discussed/ordered labs, encouraged healthy, low carbohydrate lifestyle and at least 150min/week of exercise, does patient need additional physical therapy? Using a cane? Assessment & Plan (01/22/2021 5:09 PM CDT): Con't f/u with PT. Use of cane/walker is reported. 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 Hwang cardiology Assessment & Plan (05/01/2023 2:50 PM CDT): HPI: Condition is stable A&P: Discussed/ordered labs, encouraged healthy, low carbohydrate lifestyle and at least 150min/week of exercise, continue on amlodipine 5 mg daily, aspirin 81 mg daily, carvedilol 12.5 mg twice daily with meals, losartan 50 mg daily, Xarelto [address] Hwang cardiology Assessment & Plan (04/15/2023 8:19 AM CDT): HPI: Condition is stable A&P: Discussed/ordered labs, encouraged healthy, low carbohydrate lifestyle and at least 150min/week of exercise, continue on carvedilol 12.5 mg twice daily, losartan 25 mg daily. Push water intake. Assessment & Plan (07/22/2021 9:27 PM COIN BOX COLLECTOR): Controlled. Continue current regimen carvedilol 12.5 b.i.d., losartan 25 daily (ARB) for management. Assessment & Plan (01/22/2021 5:07 PM CDT): Labs today. Continue current. SAVANAH on CPAP 07/21/2020 Assessment & Plan (05/01/2023 2:50 PM CDT): Pt states using cpap for 8hours/night most nights/wk Pt states less daytime somnolence, feels better when using it. Would recommend the continued use of cpap Assessment & Plan (04/15/2023 8:17 AM CDT): Pt states using cpap for hours/night nights/wk Pt states less daytime somnolence, feels better when using it. Would recommend the continued use of cpap Assessment & Plan (03/29/2021 5:27 PM CDT): Will need some assistance with getting her device to fit. She reports that she has had the nasal prongs popping off from the tubing. Will send this note over to Sleep Medicine to see if they have any suggestions that she has had difficulty with her device and fitting. Assessment & Plan (02/12/2021 7:35 PM CDT): Still reports some difficulty with management of mask type. Continue to work with Dr. Campos as well as medical last to find fit that is most appropriate for her. Assessment & Plan (01/22/2021 5:07 PM CDT): Con't f/u with Dr. Campos. Assessment & Plan (11/25/2020 4:18 PM CDT): New to device use. F/U DME supplier to determine when she is going to receive new parts. Has not washed since starting. Suspect some congestion and possible serous otitis is 2/2 to new. SOB (shortness of breath) 05/16/2020 Assessment & Plan (10/30/2023 12:22 PM COIN BOX COLLECTOR): Pt seeing Dr. Hwang today and will address this with him today Assessment & Plan (05/01/2023 2:49 PM CDT): At last office visit we sent pt to cardiology seeing Dr. Hwang Assessment & Plan (04/15/2023 2:01 PM CDT): EKG done in office today Per my interpretation Rhythm/Rate: NSR rate 85 [place]: left axis deviation BBB: no BBB Comparison with prior EKG: no change from previous EKG Refer to cardiology for further workup. Will likely need stress test. Assessment & Plan (03/29/2021 5:28 PM CDT): Cardiology has completed her evaluation in do not believe that this is associated with her shortness of breath. Her PFT was mild with restrictive airway. I suspect that this is a combination of anxiety as well as deconditioning. Physical therapy has been ordered. Appointment is to be scheduled. Our office is to assist with this. Assessment & Plan (02/12/2021 7:36 PM CDT): Continues. Cardiac catheterization was negative. Previously had used albuterol when she had shortness of breath, will refill and see if this makes improvement. PFT is pending. Some anticipation that this may be provoked by anxiety is noted. Changing from duloxetine to venlafaxine. Assessment & Plan (01/22/2021 5:07 PM CDT): Acutely worsening over the past few months. CXR and labs pending. Unclear etiology. Has apt tomorrow with Dr. Hwang. Using CPAP during the day to assist. Has been anxious-using buspar as ordered. Mild relief. Hypersomnolence 05/16/2020 Assessment & Plan (05/01/2023 2:50 PM CDT): Pt states using cpap for 8hours/night most nights/wk Pt states less daytime somnolence, feels better when using it. Would recommend the continued use of cpap Assessment & Plan (04/15/2023 8:17 AM CDT): Pt states using cpap for hours/night nights/wk Pt states less daytime somnolence, feels better when using it. Would recommend the continued use of cpap Assessment & Plan (01/22/2021 5:07 PM CDT): Improving. Mixed hyperlipidemia 05/08/2020 Assessment & Plan (10/30/2023 12:21 PM COIN BOX COLLECTOR): HPI: Condition is stable A&P: Discussed/ordered labs, encouraged healthy, low carbohydrate lifestyle and at least 150min/week of exercise, continue on pravastatin 20mg daily Assessment & Plan (05/01/2023 11:53 AM CDT): HPI: Condition is stable A&P: Discussed/ordered labs, encouraged healthy, low carbohydrate lifestyle and at least 150min/week of exercise, continue on pravastatin 20 mg Assessment & Plan (04/15/2023 8:16 AM CDT): HPI: Condition is stable A&P: Discussed/ordered labs, encouraged healthy, low carbohydrate lifestyle and at least 150min/week of exercise, continue on pravastatin 20 mg daily Assessment & Plan (07/22/2021 9:27 PM COIN BOX COLLECTOR): Labs today. Continue current pravastatin 20 mg. Assessment & Plan (01/22/2021 5:06 PM CDT): Labs today. Continue current pravastatin. Seasonal allergies 07/16/2018 Assessment & Plan (10/30/2023 12:21 PM COIN BOX COLLECTOR): HPI: Condition is not at/near goal Negative for covid and flu A&P: Discussed environmental controls No smoking around patient, no animals in bedroom, keep windows closed, no hanging clothes on the line Take zyrtec/claritin/henrique in the am Saline rinse in the am Flonase 1 sprays each nostril, aim away from cartilage, spray once-baby sniff, switch to the other nostril and repeat. Saline rinse about 15 min before bed Flonase 1 sprays each nostril, aim away from cartilage, spray once-baby sniff, switch to the other nostril and repeat. If working or playing outside, may need to do saline rinses when coming in and change clothes right away Recommend staying on the above treatment from the beginning of November to Come off of meds if possible during the summer Then restart on meds mid to late April until Come off of meds if possible during the winter Assessment & Plan (05/01/2023 11:49 AM CDT): Condition is stable A&P: Discussed environmental controls No smoking around patient, no animals in bedroom, keep windows closed, no hanging clothes on the line Take zyrtec/claritin/allgera in the am Saline rinse in the am astelin nasal spray 1 spray each nostril, followed by a baby sniff Wait about 10 min, then Flonase 1 spray each nostril, aim away from cartilage, spray once-baby sniff, switch to the other nostril and repeat. Saline rinse about 15 min before bed astelin nasal spray 1 spray each nostril, followed by a baby sniff wait about 10 min then Flonase 1 spray each nostril, aim away from cartilage, spray once-baby sniff, switch to the other nostril and repeat. If working or playing outside, may need to do saline rinses when coming in and change clothes right away Recommend staying on the above treatment from the of November to Come off of meds if possible during the summer Then restart on meds mid to april until Thanksgiving Come off of meds if possible during the winter Assessment & Plan (04/15/2023 8:11 AM CDT): HPI: Condition is stable A&P: Continue azelastine 137 mcg 1 spray into each nostril 2 times daily. Discussed environmental controls No smoking around patient, no animals in bedroom, keep windows closed, no hanging clothes on the line Take zyrtec/claritin/henrique in the am Saline rinse in the am Flonase 1 sprays each nostril, aim away from cartilage, spray once-baby sniff, switch to the other nostril and repeat. Saline rinse about 15 min before bed Flonase 1 sprays each nostril, aim away from cartilage, spray once-baby sniff, switch to the other nostril and repeat. If working or playing outside, may need to do saline rinses when coming in and change clothes right away Recommend staying on the above treatment from the of November to Come off of meds if possible during the summer Then restart on meds mid to april until Thanksgiving Come off of meds if possible during the winter Assessment & Plan (03/29/2021 5:27 PM CDT): Controlled. Continue current regimen of Flonase Assessment & Plan (01/22/2021 5:06 PM CDT): Refilled claritin as well as Flonase. May con't sinus rinses. Assessment & Plan (10/16/2020 2:52 PM COIN BOX COLLECTOR): Still with some post nasal drip w/ use of flonase/astelin. Was better with teeth. Will have it wax/wane due to weather. Had mild improvement with antibiotics. Had some improvement yesterday. Dental infection is noted currently. Has to last picker script to last picker with steroids. Hereditary and idiopathic peripheral neuropathy 04/20/2018 Overview (07/16/2018): Overview: Last Assessment & Plan: Patient is not myelopathic at this time. The sensory deficits are more distal unlikely consistent with peripheral neuropathy. She is not a smoker and has no history of diabetes to account for the neuropathy. It is possible as part of her radiculopathy with her lumbar disc issues and will follow Assessment & Plan (10/30/2023 12:20 PM COIN BOX COLLECTOR): HPI: Condition is stable A&P: Discussed/ordered labs, encouraged healthy, low carbohydrate lifestyle and at least 150min/week of exercise, continue on gabapentin 300mg twice daily Assessment & Plan (05/01/2023 11:48 AM CDT): HPI: Condition is stable A&P: Discussed/ordered labs, encouraged healthy, low carbohydrate lifestyle and at least 150min/week of exercise, continue on gabapentin 100 mg twice daily Assessment & Plan (04/15/2023 8:09 AM CDT): HPI: Condition is stable A&P: Discussed/ordered labs, encouraged healthy, low carbohydrate lifestyle and at least 150min/week of exercise, continue on gabapentin 100 mg two times daily Assessment & Plan (04/20/2018 12:55 PM CDT): Patient is not myelopathic at this time. The sensory deficits are more distal unlikely consistent with peripheral neuropathy. She is not a smoker and has no history of diabetes to account for the neuropathy. It is possible as part of her radiculopathy with her lumbar disc issues and will follow Recurrent major depressive d isorder, in full remission ([facility]) 02/24/2018 Assessment & Plan (10/30/2023 12:20 PM COIN BOX COLLECTOR): Patient reiterated no suicidal thoughts at this time; take medication as directed; contact 911 and go to the ER if becomes suicidal; discussed side effects of medication with patient; encouraged healthy diet and exericise; encouraged patient to see a counselor HPI: Condition is stable A&P: Discussed/ordered labs, encouraged healthy, low carbohydrate lifestyle and at least 150min/week of exercise, continue on venlafaxine 75mg daily and buspirone 10mg 3 times daily Assessment & Plan (05/01/2023 11:48 AM CDT): Patient reiterated no suicidal thoughts at this time; take medication as directed; contact 911 and go to the ER if becomes suicidal; discussed side effects of medication with patient; encouraged healthy diet and exericise; encouraged patient to see a counselor HPI: Condition is stable A&P: Discussed/ordered labs, encouraged healthy, low carbohydrate lifestyle and at least 150min/week of exercise, continue on buspirone 10 mg 3 times daily, venlafaxine 75 mg daily Assessment & Plan (04/15/2023 8:06 AM CDT): Patient reiterated no suicidal thoughts at this time; take medication as directed; contact 911 and go to the ER if becomes suicidal; discussed side effects of medication with patient; encouraged healthy diet and exericise; encouraged patient to see a counselor HPI: Condition is stable A&P: Discussed/ordered labs, encouraged healthy, low carbohydrate lifestyle and at least 150min/week of exercise, continue on buspirone 10 mg three times daily and venlafaxine XR 75 mg mg daily Assessment & Plan (07/22/2021 9:28 PM COIN BOX COLLECTOR): Chronic. Stable. Con't effexor 37.5 mg daily. Assessment & Plan (01/22/2021 5:05 PM CDT): Con't use of duloxetin and buspar TID. Counseling referral provided. Con't with distraction. Assessment & Plan (11/03/2020 4:47 AM COIN BOX COLLECTOR): In remission. DOT (generalized anxiety disorder) 02/24/2018 Assessment & Plan (10/30/2023 12:20 PM COIN BOX COLLECTOR): Patient reiterated no suicidal thoughts at this time; take medication as directed; contact 911 and go to the ER if becomes suicidal; discussed side effects of medication with patient; encouraged healthy diet and exericise; encouraged patient to see a counselor HPI: Condition is stable A&P: Discussed/ordered labs, encouraged healthy, low carbohydrate lifestyle and at least 150min/week of exercise, continue on venlafaxine 75mg daily and buspirone 10mg 3 times daily Assessment & Plan (05/01/2023 11:48 AM CDT): Patient reiterated no suicidal thoughts at this time; take medication as directed; contact 911 and go to the ER if becomes suicidal; discussed side effects of medication with patient; encouraged healthy diet and exericise; encouraged patient to see a counselor HPI: Condition is stable A&P: Discussed/ordered labs, encouraged healthy, low carbohydrate lifestyle and at least 150min/week of exercise, continue on buspirone 10 mg 3 times daily, venlafaxine 75 mg daily Assessment & Plan (04/15/2023 8:08 AM CDT): Patient reiterated no suicidal thoughts at this time; take medication as directed; contact 911 and go to the ER if becomes suicidal; discussed side effects of medication with patient; encouraged healthy diet and exericise; encouraged patient to see a counselor HPI: Condition is stable A&P: Discussed/ordered labs, encouraged healthy, low carbohydrate lifestyle and at least 150min/week of exercise, continue on buspirone 10 mg three times daily and venlafaxine XR 75 mg mg daily Assessment & Plan (07/22/2021 9:28 PM COIN BOX COLLECTOR): Chronic. Stable. Effexor 37.5 mg daily, buspar 10 mg TID. Assessment & Plan (03/29/2021 5:26 PM CDT): Stable. Continue current regimen of buspar (BID) not tid and effexor. Some improvement is reported. Assessment & Plan (02/12/2021 7:34 PM CDT): Worsening. Some situational issues are reported. Will change duloxetine to venlafaxine. Tremors noted. Continue buspirone 10 mg t.i.d.. Consider counseling and psychiatry if not improving. Assessment & Plan (01/22/2021 5:05 PM CDT): Worsening. Shortness of breath is worsening also. Continue to follow-up with Dr. Campos as well as Dr. Hwang. Consider pulmonary function test or CT chest is needed. Other chronic pain 11/17/2017 Assessment & Plan (10/30/2023 12:19 PM COIN BOX COLLECTOR): PI: Condition is stable A&P: Discussed/ordered labs, encouraged healthy, low carbohydrate lifestyle and at least 150min/week of exercise, continue on tizanidine 2mg as needed Recommend muscle rubs such as bengay/icyhot, may use heat packs patient may trial on Vital Proteins Collagen Peptides two capfuls a day to help with joints Assessment & Plan (05/01/2023 11:47 AM CDT): HPI: Condition is stable A&P: Discussed/ordered labs, encouraged healthy, low carbohydrate lifestyle and at least 150min/week of exercise, continue on gabapentin 100 mg twice daily and tizanidine 2 mg every 6 hours as needed Assessment & Plan (04/15/2023 8:05 AM CDT): HPI: Condition is stable A&P: Discussed/ordered labs, encouraged healthy, low carbohydrate lifestyle and at least 150min/week of exercise, continue on gabapentin 100 mg twice daily and tizanidine 2 mg every 6 hours as needed Assessment & Plan (01/22/2021 5:04 PM CDT): Controlled. Continue current regimen of gabapentin and mobic. Insomnia 12/17/2016 Overview (08/15/2017): I Assessment & Plan (10/30/2023 12:19 PM COIN BOX COLLECTOR): Pt states using cpap for 8 hours/night 3 nights/wk, less when she has sinus problems Pt states less daytime somnolence, feels better when using it. Would recommend the continued use of cpap Use saline rinse before bed Assessment & Plan (05/01/2023 2:47 PM CDT): Pt states using cpap for 8 hours/night most nights/wk (right now has sinus problem) Pt states less daytime somnolence, feels better when using it. Would recommend the continued use of cpap Use saline rinse before bed. Assessment & Plan (04/15/2023 8:17 AM CDT): Pt states using cpap for hours/night nights/wk Pt states less daytime somnolence, feels better when using it. Would recommend the continued use of cpap Assessment & Plan (01/22/2021 5:03 PM CDT): Improved with use of CPAP. Continue to follow-up with Dr. Campos. Panic disorder 06/15/2014 Overview (07/16/2018): Overview: Overview: Assessment & Plan (10/30/2023 12:13 PM COIN BOX COLLECTOR): Patient reiterated no suicidal thoughts at this time; take medication as directed; contact 911 and go to the ER if becomes suicidal; discussed side effects of medication with patient; encouraged healthy diet and exericise; encouraged patient to see a counselor HPI: Condition is stable A&P: Discussed/ordered labs, encouraged healthy, low carbohydrate lifestyle and at least 150min/week of exercise, continue on venlafaxine 75mg daily and buspirone 10mg 3 times daily Assessment & Plan (05/01/2023 11:37 AM CDT): Patient reiterated no suicidal thoughts at this time; take medication as directed; contact 911 and go to the ER if becomes suicidal; discussed side effects of medication with patient; encouraged healthy diet and exericise; encouraged patient to see a counselor HPI: Condition is stable A&P: Discussed/ordered labs, encouraged healthy, low carbohydrate lifestyle and at least 150min/week of exercise, continue on buspirone 10 mg 3 times daily, venlafaxine 75 mg daily Assessment & Plan (04/15/2023 8:06 AM CDT): Patient reiterated no suicidal thoughts at this time; take medication as directed; contact 911 and go to the ER if becomes suicidal; discussed side effects of medication with patient; encouraged healthy diet and exericise; encouraged patient to see a counselor HPI: Condition is stable A&P: Discussed/ordered labs, encouraged healthy, low carbohydrate lifestyle and at least 150min/week of exercise, continue on buspirone 10 mg three times daily and venlafaxine XR 75 mg daily. Assessment & Plan (01/22/2021 5:02 PM CDT): Chronic. Counseling referral provided. Con't buspar. Unclear if SOB is 2/2 to organic or external cause. Constipation 06/15/2014 Overview (07/16/2018): Overview: Overview: Assessment & Plan (10/30/2023 12:17 PM COIN BOX COLLECTOR): HPI: Condition is stable A&P: Discussed/ordered labs, encouraged healthy, low carbohydrate lifestyle and at least 150min/week of exercise, Please start taking probiotic 50billion CFU daily longterm. This will help maintain the good bacteria that is in your gut. Assessment & Plan (05/01/2023 11:39 AM CDT): HPI: Condition is stable A&P: Discussed/ordered labs, encouraged healthy, low carbohydrate lifestyle and at least 150min/week of exercise, continue on docusate 100 mg 3 times daily as needed, For the constipation, push fluids, for the first 3 days may use Miralax 1 capful three times a day x 3 days along with 1 Ex-Lax chew daily x 3 days, then decrease Miralax to 2-3 times a week. Maintain a high fiber diet with plenty of roughage, and 6-8 large glasses of water daily to avoid constipation in the future. 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 Assessment & Plan (04/15/2023 7:57 AM CDT): HPI: Condition is stable A&P: Discussed/ordered labs, encouraged healthy, low carbohydrate lifestyle and at least 150min/week of exercise, continue on docusate 100 mg three times daily as needed For the constipation, push fluids, for the first 3 days may use Miralax 1 capful three times a day x 3 days along with 1 Ex-Lax chew daily x 3 days, then decrease Miralax to 2-3 times a week. Maintain a high fiber diet with plenty of roughage, and 6-8 large glasses of water daily to avoid constipation in the future. 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 Assessment & Plan (01/22/2021 5:02 PM CDT): Asymptomatic at this time. Con't use of colace. Assessment & Plan (10/16/2020 2:36 PM COIN BOX COLLECTOR): Chronic. Use of stool softner TID w/o resolution. Has seen GI. Diverticulosis on colonoscopy in 2017. Generalized osteoarthritis 07/26/2013 Overview (07/16/2018): Overview: Overview: Assessment & Plan (10/30/2023 12:18 PM COIN BOX COLLECTOR): HPI: Condition is stable A&P: Discussed/ordered labs, encouraged healthy, low carbohydrate lifestyle and at least 150min/week of exercise, continue on tizanidine 2mg as needed Recommend muscle rubs such as bengay/icyhot, may use heat packs patient may trial on Vital Proteins Collagen Peptides two capfuls a day to help with joints Assessment & Plan (05/01/2023 11:43 AM CDT): HPI: Condition is stable A&P: Discussed/ordered labs, encouraged healthy, low carbohydrate lifestyle and at least 150min/week of exercise, continue on tizanidine 2 mg every 6 hours as needed Recommend muscle rubs such as Biofreeze, icy hot or diclofenac gel patient may trial on Vital Proteins Collagen Peptides two capfuls a day to help with joints Assessment & Plan (04/15/2023 8:01 AM CDT): HPI: Condition is stable A&P: Discussed/ordered labs, encouraged healthy, low carbohydrate lifestyle and at least 150min/week of exercise, continue on ? Assessment & Plan (01/22/2021 5:02 PM CDT): Con't intermittent use of mobic. Gastroesophageal reflux disease 08/20/2012 Overview (07/16/2018): Overview: Overview: Assessment & Plan (10/30/2023 12:15 PM COIN BOX COLLECTOR): HPI: Condition is stable Continue on current meds omprazole 40mg daily , encouraged healthy diet and exercise Avoid trigger foods including: carbonated beverages, caffeine, spicy, fried foods, tomatoes, cucumbers, mint, and acidic fruits/juices like orange/lemon/grapefruit. Avoid eating/drinking anything for at least 2 hours before bed. Sleep with bed propped. Discussed that long-term use of proton pump inhibitors (PPIs) can cause low vitamin B12, low magnesium, diarrhea, C diff, osteoporosis-weakening of bones and kidney problems, pt would like to remain on medication at this time Assessment & Plan (05/01/2023 11:40 AM CDT): HPI: Condition is stable Continue on current meds omeprazole 40 mg daily, encouraged healthy diet and exercise Avoid trigger foods including: carbonated beverages, caffeine, spicy, fried foods, tomatoes, cucumbers, mint, and acidic fruits/juices like orange/lemon/grapefruit. Avoid eating/drinking anything for at least 2 hours before bed. Sleep with bed propped. Discussed that long-term use of proton pump inhibitors (PPIs) can cause low vitamin B12, low magnesium, diarrhea, C diff, osteoporosis-weakening of bones and kidney problems, pt would like to remain on medication at this time Assessment & Plan (04/15/2023 8:00 AM CDT): HPI: Condition is stable Continue on current meds omeprazole 40 mg daily, encouraged healthy diet and exercise Avoid trigger foods including: carbonated beverages, caffeine, spicy, fried foods, tomatoes, cucumbers, mint, and acidic fruits/juices like orange/lemon/grapefruit. Avoid eating/drinking anything for at least 2 hours before bed. Sleep with bed propped. Discussed that long-term use of proton pump inhibitors (PPIs) can cause low vitamin B12, low magnesium, diarrhea, C diff, osteoporosis-weakening of bones and kidney problems, pt would like to remain on medication at this time Assessment & Plan (01/22/2021 5:02 PM CDT): Controlled. Continue current regime prilosec 40 mg q daily. Osteoporosis 03/23/2012 Overview (12/12/2016): OSTEOPOROSIS NEC Assessment & Plan (10/30/2023 12:15 PM COIN BOX COLLECTOR): Scheduled for bone density November 2023 Take the vit d3 4590-6310 units daily Assessment & Plan (05/01/2023 11:39 AM CDT): HPI: Condition is stable last bone density done 2019 A&P: Discussed/ordered labs, encouraged healthy, low carbohydrate lifestyle and at least 150min/week of exercise, continue on vitamin D3 2000 units daily Bone density ordered Assessment & Plan (04/15/2023 7:59 AM CDT): HPI: Condition is stable , last bone density 2019 A&P: Discussed/ordered labs, encouraged healthy, low carbohydrate lifestyle and at least 150min/week of exercise, continue on vitamin D3 2000 units daily Resolved Problems Problem Noted Date Diagnosed Date Resolved Date Hospital discharge follow-up 06/06/2021 04/15/2023 Dyspnea on exertion 01/23/2021 05/01/20 23 Assessment & Plan (04/15/2023 8:20 AM CDT): ? Chronic pansinusitis 08/10/2020 021 Assessment & Plan (11/25/2020 4:17 PM CDT): Sinus pressure has resolved. Now with effusion L TM. Instructed to increase flonase use, if not improving-consider another round of antibiotic and steriods-but just finished. Agrees to call in 2 days if not improving or earlier if worsening. Persistent headaches 08/10/2020 021 Stage 2 chronic kidney disease 05/08/2020 04/15/2023 Assessment & Plan (04/15/2023 8:15 AM CDT): HPI: Condition is stable A&P: Discussed/ordered labs, encouraged healthy, low carbohydrate lifestyle and at least 150min/week of exercise, patient already on losartan 25 mg for kidney protection. Assessment & Plan (01/22/2021 5:06 PM CDT): Labs today. Continue current. Diaphoresis 05/02/2020 10/15/2020 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 07/16/2018 01/22/2021 Metatarsalgia of left foot 04/20/2018 0 01/22/2021 Overview (07/16/2018): Overview: Last Assessment & Plan: Patient was provided with a metatarsal pad to wear to help unload the 5th MTP joint. She has not seen significant improvement she may want to get in to see a wood form builder in referral was given Assessment & Plan (04/20/2018 12:54 PM CDT): Patient was provided with a metatarsal pad to wear to help unload the 5th MTP joint. She has not seen significant improvement she may want to get in to see a wood form builder in referral was given Trochanteric bursitis of right hip 04/20/2018 01/22/2021 Overview (07/16/2018): Overview: Last Assessment & Plan: After discussing the treatment options the patient elected to go on a cortisone injection for her hip. Shot was given through a sterile field she tolerated the procedure well. Assessment & Plan (04/20/2018 12:53 PM CDT): After discussing the treatment options the patient elected to go on a cortisone injection for her hip. Shot was given through a sterile field she tolerated the procedure well. Muscle cramps 02/24/2018 01/22/2021 Seasonal allergic rhinitis 02/24/2018 0 05/02/2020 Dry scalp 02/24/2018 10/15/2020 Recurrent major depressive d isorder, in partial remission 11/17/2017 02/24/2018 Incomplete tear of right rotator cuff 10/30/2017 01/22/2021 Overview (07/16/2018): Overview: Last Assessment & Plan: Patient likely has a partial-thickness tear of the rotator cuff producing her intermittent symptoms. Cortisone injection was given through a sterile field would have physical therapy working on a conditioning program. Would like to reassess in six weeks Assessment & Plan (10/30/2017 2:17 PM COIN BOX COLLECTOR): Patient likely has a partial-thickness tear of the rotator cuff producing her intermittent symptoms. Cortisone injection was given through a sterile field would have physical therapy working on a conditioning program. Would like to reassess in six weeks Right carpal tunnel syndrome 10/30/2017 01/22/2021 Overview (07/16/2018): Overview: Last Assessment & Plan: The patient is not currently myelopathic. Her symptoms are very consistent with carpal tunnel on the right hand. A wrist control splint was issued if not improving EMG nerve conduction study may be helpful Assessment & Plan (10/30/2017 2:18 PM COIN BOX COLLECTOR): The patient is not currently myelopathic. Her symptoms are very consistent with carpal tunnel on the right hand. A wrist control splint was issued if not improving EMG nerve conduction study may be helpful Intervertebral disc disorder with radiculopathy of lumbar region 10/30/2017 Overview (07/16/2018): Overview: Last Assessment & Plan: Patient has scoliosis in the lumbar spine with disc space narrowing most pronounced at the L4-5 level. Physical therapy would likely be beneficial and was prescribed. Would like to reassess in six weeks Assessment & Plan (11/25/2020 4:17 PM CDT): Now with weakness-no falls, but tripping. Suspect is foot drop related. PT ordered. Assessment & Plan (10/30/2017 2:17 PM COIN BOX COLLECTOR): Patient has scoliosis in the lumbar spine with disc space narrowing most pronounced at the L4-5 level. Physical therapy would likely be beneficial and was prescribed. Would like to reassess in six weeks Cervical radiculopathy due t o degenerative joint disease of spine 10/17/2017 01/22/2021 Chronic right shoulder pain 08/15/2017 01/22/2021 Chronic right hip pain 08/15/201701/22 Body mass index (BMI) of 26.0-26.9 in adult 05/21/2017 07/16/2018 Osteopenia 12/25/2016 04/15/2023 Assessment & Plan (01/22/2021 5:04 PM CDT): Controlled. Continue current regimen. Cardiovascular symptoms 12/18/2016 02/0 05/2018 Incontinence of feces 12/17/20162017 Overview (08/15/2017): Mixed anxiety depressive disorder 12/17/2016 02/24/2018 Overview (08/15/2017): Seborrheic eczema 12/17/2016 05/01/2023 Overview (07/16/2018): Dermatitis, seborrheic Overview: Overview: Dermatitis, seborrheic Assessment & Plan (05/01/2023 11:46 AM CDT): HPI: Condition is stable A&P: Discussed/ordered labs, encouraged healthy, low carbohydrate lifestyle and at least 150min/week of exercise, Is patient taking any creams for this? This patient is seeing Dermatology? Assessment & Plan (04/15/2023 8:02 AM CDT): HPI: Condition is stable A&P: Discussed/ordered labs, encouraged healthy, low carbohydrate lifestyle and at least 150min/week of exercise, continue on ? Assessment & Plan (01/22/2021 5:03 PM CDT): Stable. Continue [id number] topical. Essential hypertension 12/17/201608/07 Overview (07/16/2018): Overview: Overview: Assessment & Plan (05/01/2023 2:48 PM CDT): HPI: Condition is stable A&P: Discussed/ordered labs, encouraged healthy, low carbohydrate lifestyle and at least 150min/week of exercise, continue on amlodipine 5 mg daily, aspirin 81 mg daily, carvedilol 12.5 mg twice daily with meals, losartan 50 mg daily, Xarelto 10 mg daily Continue to see Dr. Hwang cardiology Acute transudative otitis media 06/15/2014 10/17/2017 Overview (08/15/2017): Chronic back pain 07/26/2013 10/15/2020 Overview (07/16/2018): Overview: Overview: Assessment & Plan (01/22/2021 5:09 PM CDT): Con't f/u with physical therapy. Improvement is reported. Immunizations Name Administration Dates Next Due Influenza, Quadrivalent, Hig h Dose, Preservative Free, Intrr 06/29/2021,08/10/2020 Influenza, Split 06/15/2012 Influenza, Trivalent, High D ose, Split, Preservative Free, Intramuscular 07/16/2018,06/13/2016,10/18/2015,06/15 Influenza, Unspecified 06/12/2023,2022(Deferred: Patient Refused),06/09/2022,03/08/2017(Deferre d: Patient Refused) Pfizer SARS-CoV-2 Monovalent Vaccination (12+ Yrs) PURPLE 03/21/2021,02/28/2021 Pneumococcal Conjugate PCV 13 04/17/2017 Pneumococcal Polysaccharide PPV23 07/16/2018,04/2012 Tdap 08/10/2020 ZOSTER LIVE 09/08/2016 Surgical History Surgery Date Site/Laterality Comments HYSTERECTOMY Hysterectomy, total, removal of both tubes and ovaries FOOT SURGERY Right Ganglion cyst and bone spur removal- R foot CATARACT EXTRACTION, BILATERAL CERVICAL SPINE SURGERY 09/08/2018 - 09/07/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 Medical History Medical History Date Comments Hypertension Arthritis Osteoarthritis Anxiety disorder Depression Chronic neck pain Chronic hip pain Chest pain GERD (gastroesophageal reflux disease) Osteoporosis Chronic right shoulder pain 08/15/2017 Chronic right hip pain 08/15/2017 Cervical radiculopathy due t o degenerative joint disease of spine 10/17/2017 Incomplete tear of right rotator cuff 10/30/2017 Overview: Last Assessment & Plan: Patient likely has a partial-thickness tear of the rotator cuff producing her intermittent symptoms. Cortisone injection was given through a sterile field would have physical therapy working on a conditioning program. Would like to reassess in six weeks Right carpal tunnel syndrome 10/30/2017 Ove rview: Last Assessment & Plan: The patient is not currently myelopathic. Her symptoms are very consistent with carpal tunnel on the right hand. A wrist control splint was issued if not improving EMG nerve conduction study may be helpful Intervertebral disc disorder with radiculopathy of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
--- OUTSIDE RECORDS SUMMARY | 2024-10-05 11:32 | XMS_ITS | Referral Summary ---
Author Organization [facility] Address [address] [place] [id number] Care Team Providers Care Manager Hospital Name Role Phone Jamal Hwang MD Unavailable [...] 10/30/2023 Assessment & Plan (10/30/2023 12:39 PM DEHYDRATOR OPERATOR): HPI: Condition is not at/near goal goal BMI <30 A&P: Healthy, high-protein, lower carbohydrate, lower fat lifestyle and exercise for 150min/week recommended Recommend tracking everything you put in your mouth on an andie like [employer] / [employer] Increase protein in diet. Examples: 1 whole egg and 2 servings of egg whites, or 2 whole eggs and 1/4 cup low fat cottage cheese, protein supplement shakes, [facility] core power elite shake has 42 g [...] in much longer they will become mushy [place] and/or coconut flour instead of regular flour [...] pork rinds For yogurt, try Two Good nauruan yogurt Use Pinterest for recipe ideas. Type [...] 10/29/2023 Assessment & Plan (10/30/2023 12:33 PM DEHYDRATOR OPERATOR): HPI: Condition is not at/near goal A&P: Discussed/ordered labs, encouraged healthy, low carbohydrate lifestyle and at least 150min/week of exercise, Take over the counter vit d3 capsules 2993-0834 units daily-this will be a terminal worker medication. Please try to get 15 min of unsunscreened time daily with as much skin showing as possible. Anything more than 15 min, please use sunscreen. Bilateral leg pain 04/24/2023 Assessment & Plan (10/30/2023 12:35 PM DEHYDRATOR OPERATOR): HPI: Condition is stable A&P: Discussed/ordered labs, [...] 04/15/2023 Assessment & Plan (10/30/2023 12:33 PM DEHYDRATOR OPERATOR): Condition is not at/near goal Personally reviewed [...] Diabetes Complications History of macrovascular disease (CVA, PA, PVD) is Present. Complications secondary to Diabetes [...] Diabetes Complications History of macrovascular disease (CVA, PA, PVD) is Present. Complications secondary to Diabetes [...] 07/13/2021 Assessment & Plan (10/30/2023 12:26 PM DEHYDRATOR OPERATOR): HPI: Condition is stable A&P: Discussed/ordered labs, [...] daily Assessment & Plan (07/22/2021 9:28 PM DEHYDRATOR OPERATOR): Con't use of xarelto 20 mg daily for PE/VTE prophylaxis. No s/s of bleeding/bruising/melena or hematochezia is noted today. History of pulmonary embolism 06/06/2021 Assessment & Plan (10/30/2023 12:25 PM DEHYDRATOR OPERATOR): HPI: Condition is stable A&P: Discussed/ordered labs, [...] daily Assessment & Plan (07/22/2021 9:29 PM DEHYDRATOR OPERATOR): Con't use of xarleto 20 mg daily for prophylaxis. 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 Assessment & Plan (07/22/2021 9:27 PM DEHYDRATOR OPERATOR): Controlled. Continue current regimen carvedilol 12.5 b.i.d., [...] 05/16/2020 Assessment & Plan (10/30/2023 12:22 PM DEHYDRATOR OPERATOR): Pt seeing Dr. Hwang today and will address this with him today Assessment & Plan (05/01/2023 2:49 PM CDT): At last office visit we sent pt to cardiology seeing Dr. Hwang Assessment & Plan (04/15/2023 2:01 PM CDT): EKG done in office today Per my interpretation Rhythm/Rate: NSR rate 85 [place]: left axis deviation BBB: no BBB Comparison [...] 05/08/2020 Assessment & Plan (10/30/2023 12:21 PM DEHYDRATOR OPERATOR): HPI: Condition is stable A&P: Discussed/ordered labs, [...] daily Assessment & Plan (07/22/2021 9:27 PM DEHYDRATOR OPERATOR): Labs today. Continue current pravastatin 20 mg. Assessment & Plan (01/22/2021 5:06 PM CDT): Labs today. Continue current pravastatin. Seasonal allergies 07/16/2018 Assessment & Plan (10/30/2023 12:21 PM DEHYDRATOR OPERATOR): HPI: Condition is not at/near goal Negative [...] rinses. Assessment & Plan (10/16/2020 2:52 PM DEHYDRATOR OPERATOR): Still with some post nasal drip w/ use of flonase/astelin. Was better with teeth. Will have it wax/wane due to weather. Had mild improvement with antibiotics. Had some improvement yesterday. Dental infection is noted currently. Has to knot picker cloth script to knot picker cloth with steroids. Hereditary and idiopathic peripheral neuropathy [...] follow Assessment & Plan (10/30/2023 12:20 PM DEHYDRATOR OPERATOR): HPI: Condition is stable A&P: Discussed/ordered labs, [...] major depressive d isorder, in full remission ([facility]) 02/24/2018 Assessment & Plan (10/30/2023 12:20 PM DEHYDRATOR OPERATOR): Patient reiterated no suicidal thoughts at this [...] daily Assessment & Plan (07/22/2021 9:28 PM DEHYDRATOR OPERATOR): Chronic. Stable. Con't effexor 37.5 mg daily. Assessment & Plan (01/22/2021 5:05 PM CDT): Con't use of duloxetin and buspar TID. Counseling referral provided. Con't with distraction. Assessment & Plan (11/03/2020 4:47 AM DEHYDRATOR OPERATOR): In remission. DOT (generalized anxiety disorder) 02/24/2018 Assessment & Plan (10/30/2023 12:20 PM DEHYDRATOR OPERATOR): Patient reiterated no suicidal thoughts at this [...] daily Assessment & Plan (07/22/2021 9:28 PM DEHYDRATOR OPERATOR): Chronic. Stable. Effexor 37.5 mg daily, buspar [...] 11/17/2017 Assessment & Plan (10/30/2023 12:19 PM DEHYDRATOR OPERATOR): PI: Condition is stable A&P: Discussed/ordered labs, [...] I Assessment & Plan (10/30/2023 12:19 PM DEHYDRATOR OPERATOR): Pt states using cpap for 8 hours/night [...] Overview: Assessment & Plan (10/30/2023 12:13 PM DEHYDRATOR OPERATOR): Patient reiterated no suicidal thoughts at this [...] Overview: Assessment & Plan (10/30/2023 12:17 PM DEHYDRATOR OPERATOR): HPI: Condition is stable A&P: Discussed/ordered labs, encouraged healthy, low carbohydrate lifestyle and at least 150min/week of exercise, Please start taking probiotic 50billion CFU daily terminal worker. This will help maintain the good bacteria [...] hot drink, can also improve the situation terminal worker. Assessment & Plan (04/15/2023 7:57 AM CDT): [...] hot drink, can also improve the situation half-way. Assessment & Plan (01/22/2021 5:02 PM CDT): Asymptomatic at this time. Con't use of colace. Assessment & Plan (10/16/2020 2:36 PM DEHYDRATOR OPERATOR): Chronic. Use of stool softner TID w/o resolution. Has seen GI. Diverticulosis on colonoscopy in 2017. Generalized osteoarthritis 07/26/2013 Overview (07/16/2018): Overview: Overview: Assessment & Plan (10/30/2023 12:18 PM DEHYDRATOR OPERATOR): HPI: Condition is stable A&P: Discussed/ordered labs, [...] Overview: Assessment & Plan (10/30/2023 12:15 PM DEHYDRATOR OPERATOR): HPI: Condition is stable Continue on current [...] NEC Assessment & Plan (10/30/2023 12:15 PM DEHYDRATOR OPERATOR): Scheduled for bone density November 2023 Take the vit d3 6544-2391 units daily Assessment & Plan (05/01/2023 11:39 [...] want to get in to see a tongue and groove machine feeder in referral was given Assessment & Plan (04/20/2018 12:54 PM CDT): Patient was provided with a metatarsal pad to wear to help unload the 5th MTP joint. She has not seen significant improvement she may want to get in to see a tongue and groove machine feeder in referral was given Trochanteric bursitis of [...] weeks Assessment & Plan (10/30/2017 2:17 PM DEHYDRATOR OPERATOR): Patient likely has a partial-thickness tear of [...] helpful Assessment & Plan (10/30/2017 2:18 PM DEHYDRATOR OPERATOR): The patient is not currently myelopathic. Her [...] ordered. Assessment & Plan (10/30/2017 2:17 PM DEHYDRATOR OPERATOR): Patient has scoliosis in the lumbar spine [...] Plan (01/22/2021 5:03 PM CDT): Stable. Continue [id number] topical. Essential hypertension 12/17/201608/07 Overview (07/16/2018): Overview: [...] PPV23 07/16/2018,04/2012 Tdap 08/10/2020 [facility] 09/08/2016 Social History Tobacco Use Types Packs/Day Years [...] on file Legal Sex Female 2:31 AM DEHYDRATOR OPERATOR Gender Identity Not on file Sexual Orientation Not on file Last Filed Vital Signs Vital Sign Reading Time Taken Comments Blood Pressure 112/82 10/30/2023 1:39 PM DEHYDRATOR OPERATOR Pulse 69 10/30/2023 1:39 PM DEHYDRATOR OPERATOR Temperature 37 ??C (98.6 ??F) 12/06/2022 3:12 PM CDT Respiratory Rate 14 10/30/2023 1:39 PM DEHYDRATOR OPERATOR Oxygen Saturation 97% 10/30/2023 11:36 AM DEHYDRATOR OPERATOR Inhaled Oxygen Concentration - - Weight 76.2 kg (168 lb) 10/30/2023 1:39 PM DEHYDRATOR OPERATOR Height 157.5 cm (5' 2 ) 10/30/2023 1:39 PM DEHYDRATOR OPERATOR Body Mass Index 30.73 10/30/2023 1:39 PM DEHYDRATOR OPERATOR Plan of Treatment Not on file Procedures Procedure Name Priority Date/Time Associated Diagnosis Comments DEXA AXIAL SKELETON BONE DENSITY 1 OR MORE SITES Schedule Routine, Read Routine (OP Routine) 11/29/2023 11:39 AM CDT Age-related osteoporosis without current pathological fracture Post-menopausal EGFR Routine 10/28/2023 11:35 AM DEHYDRATOR OPERATOR Essential hypertension 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 ([facility]) ([facility]) HEMOGLOBIN A1C Routine 10/28/2023 11:35 AM DEHYDRATOR OPERATOR 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 ([facility]) ([facility]) LIPID PANEL Routine 10/28/2023 11:35 AM DEHYDRATOR OPERATOR 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 Electronically signed by: Mayr Dumont M.D. Neisha Chacko NP IMG DXA PROCEDURES Final Re sult * eGFR (10/28/2023 11:35 AM DEHYDRATOR OPERATOR) [facility] eGFR 64 mL/min/1. 73 m2 [facility] Comment: Interpretive Data Reference Interval Normal [...] of Race in Diagnosing Kidney Disease, JASN 2020). The CKD-EPI equation should not be used for patients with unstable renal function and has not been validated in children and those over 70. Current interpretive data was last reviewed 2021. Blood 10/28/2023 11:3 5 AM DEHYDRATOR OPERATOR 10/28/2023 5:36 PM DEHYDRATOR OPERATOR Neisha Chacko NP LAB BLOOD ORDERABLES Final Result Performing Organization Address [facility]/[place] de Phone Number [facility] [address] [place] [address] * (ABNORMAL) Hemoglobin A1c (10/28/2023 11:35 AM DEHYDRATOR OPERATOR) [facility] Signature Hgb A1C 7.7(H) 4.0 - 5.6 % [facility] Estimated Average Glucose 174 mg/dL [facility] Comment: The ADA recommends reporting an estimated Average Glucose (eAG) with all Hemoglobin A1c results using the equation derived from a study of 507 normal and diabetic adults. ??Minority populations were underrepresented and children were not included. ?? (Diabetes Care 31:9559-0115, 2008). ??The eAG is not equivalent to a fasting glucose. Blood 10/28/2023 11:3 5 AM DEHYDRATOR OPERATOR 10/28/2023 5:36 PM DEHYDRATOR OPERATOR Neisha Chacko NP LAB BLOOD ORDERABLES Final Result Performing Organization Address [facility] de Phone Number [facility] [address] [place] [address] [phone] * Lipid panel (10/28/2023 11:35 AM DEHYDRATOR OPERATOR) [facility] Signature Cholesterol 178 30 - 199 mg/dL [facility] Comment: Interpretive Data Ages < or = [...] revised on 2018. Triglycerides 104 <=149 mg/dL [facility] Comment: Interpretive Data Ages < or = [...] revised on 2018. HDL 63 >=40 mg/dL [facility] Comment: Interpretive Data Ages < or = [...] on 2018. LDL, calculated 94 <=129 mg/dL [facility] Comment: Interpretive Data Ages < or = [...] revised on 2018. Non-HDL Cholesterol 115 mg/dL [facility] Comment: Interpretive Data Ages < or = [...] last revised on 2018. Chol/HDL ratio 3 [facility] Blood 10/28/2023 11:3 5 AM DEHYDRATOR OPERATOR 10/28/2023 5:36 PM DEHYDRATOR OPERATOR Neisha Chacko NP LAB BLOOD ORDERABLES Final Result Performing Organization Address [facility]/ZIP Co de Phone Number [facility] [address] Department [facility] [place], [place] [id number] * DIABETES EYE EXAM (07/23/2023) SCRIBED DIABETIC DILATED EYE EXAM Normal Impressions Tita Naik, MALINI - 07/23/2023 No diabetic retinopathy detected No evidence of macular edema us Historical Provider MD HEALTH MAINTENANCE Final Result * Albumin Creatinine Ratio, Urine (04/15/2023 2:01 PM CDT) Albumin Ur <12.0 mg/L [facility] Comment: Interpretive Data No reference range established. Current interpretive data was last revised 2019. Creatinine Ur 51.8 mg/dL [facility] Comment: Interpretive Data No reference range established. Current interpretive data was last revised 2019. Albumin Creatinine Ratio, Ur <23 1 - 29 mg/g [facility] Urine 04/15/2023 2:01 PM CDT 04/15/2023 2:02 PM CDT Neisha Chacko NP LAB URINE ORDERABLES Final Result Performing Organization Address City/[facility]/ZIP Co de Phone Number [facility] [address] Department cortical[facility] [place], [place] [id number] * SCREENING MAMMOGRAM BILATERAL W YULIANA (07/26/2021 11:35 AM DEHYDRATOR OPERATOR) Anatomical Region Laterality Modality Breast Bilateral Mammography 07/26/2021 12:2 4 PM DEHYDRATOR OPERATOR Impressions 07/26/2021 12:24 PM DEHYDRATOR OPERATOR There is no mammographic evidence of malignancy. Routine screening mammography is recommended in 1 year. BI-RADS: 1 - Negative. The patient will be entered into a reminder system with a target due date of 1 year for her next mammogram. Electronically signed by: Jayant Bruner M.D. Narrative 07/26/2021 12:24 PM DEHYDRATOR OPERATOR EXAMINATION: SCREENING MAMMOGRAM BILATERAL W YULIANA ORDERING [...] been no suspicious interval change. Juliet Wilkes [facility] IMG MAMMO PROCEDURES Fi nal Result * Hepatitis C antibody (07/16/2018 2:00 PM DEHYDRATOR OPERATOR) Hep C Ab Negative Negative [facility] Blood specimen (specimen) 07/16/2018 2:00 PM DEHYDRATOR OPERATOR 07/16/2018 2:47 PM DEHYDRATOR OPERATOR Narrative [facility] - 07/16/2018 3:26 PM DEHYDRATOR OPERATOR Javier Chou NP LAB MICROBIOLOGY - GENERAL ORDERABLES Final Result [facility] [id number] Department [place] [address] * COLONOSCOPY REPORT (12/31/2016) Anatomical Region Laterality Modality Other Narrative 12/31/2016 Ordered by an unspecified provider. Historical Provider GI PROCEDURE ORDERABLES F inal Result from Last 3 Months or Most Recently Relevant to Health Maintenance Insurance Care Teams Manager Hospital Relationship Specialty Start Date End Date Neisha Chacko NP [address] [place] [address] [place] [phone] PCP - General Family Medicine 04/15/23 Jamal Hwang MD [address] [facility] [address] [place] [address] Consulting Physician Cardiology 08/10/20
--- OUTSIDE RECORDS SUMMARY | 2024-10-05 11:32 | XMS_ITS | Encounter Summary ---
Author Organization [facility] Healthcare Address [address] [place] [address] Care Team Providers Care Pastry Cook Helper Name Role Phone Jamal Hwang MD Unavailable [phone] Juliet Sandoval HEAD MECHANIC Primary Care Provider Dominic Peña MD Primary Care Provider Neisha Chacko HEAD MECHANIC Primary Care Provider Reason for Visit * Reason Onset Date Comments Scheduling Appointments 07/25/2021 Confirmi ng mammogram appt Encounter Details Date Type Department Care Team (Late st Contact Info) Description 07/25/2021 Telephone [facility] [address] [place] [id number] [address] Hernandez [address] Scheduling Appointments (Confirming mammogram appt) Social History Tobacco Use Types Packs/Day Years Used Date Smoking Tobacco: Never Smokeless Tobacco: Never Alcohol Use Standard Drinks/Week Comments No 0 (1 standard drink = 0.6 oz pur e alcohol) PHQ-2 Answer Date Recorded PHQ-2 Total Score (If total score is 3 or more points, staff should administer the PHQ-9) 2 06/29/2021 Comments No Sex and Gender Information Value Date Recorded Sex Assigned at Not on file Legal Sex Female 2:31 AM UNCRATER Gender Identity Not on file Sexual Orientation Not on file documented as of this encounter Plan of Treatment Not on file documented as of this encounter Visit Diagnoses Not on filedocumented in this encounter Additional Health Concerns Infection Onset Date Last Indicated Resolved Time COVID: Suspected 12/06/2022 12/06/2022 12/06/2022 4:28 PM CDT documented as of this encounter Care Teams Pastry Cook Helper Relationship Specialty Start Date End Date Juliet Sandoval NP [address] [facility] [address] [place] [address] PCP - General Family Medicine 10/16/20 11/19/21 Dominic Peña MD [address] [facility] [address] [place] [address] PCP - General Family Practice 11/20/21 04/14/23 Neisha Chacko NP [address] [place] [address] [place] [address] PCP - General Family Medicine 04/15/23 Jamal Hwang MD [address] [place] [address] Consulting Physician Cardiology 08/10/20 documented as of this encounter
[2024-10-05 11:36] LABS: Basophils Percent Auto 0.3 % (0.2-1.2); Eosinophils Absolute Auto 0.2 K/mm3 (0-0.3); Hematocrit 40.5 % (37.0-47.0); Hemoglobin 12.9 g/dL (12.0-15.0); Immature Granulocyte Absolute 0.01 K/mm3 (0.00-0.031); Immature Granulocyte Percent A 0.2 % (0-0.5); Lymphocytes Absolute Auto 2.32 K/mm3 (0.9-3.2); Lymphocytes Percent Auto 40.6 % (18.3-44.2); Mean Corpuscular HGB Conc 31.9 g/dl (32-36); Mean Corpuscular Hemoglobin 26.4 pg (26-34); Mean Platelet Volume 9.7 fl (7.4-10.4); Monocytes Absolute Auto 0.4 K/mm3 (0.1-0.6); Monocytes Percent Auto 6.6 % (2.6-8.5); Neutrophils Absolute Auto 2.8 K/mm3 (1.3-6.7); Neutrophils Percent Auto 49.3 % (45.5-73.1); Platelet Count Result 199 k/mm3 (150-375); Red Blood Count 4.88 M/mm3 (4.2-5.4); Red Cell Distribution Width 13.8 % (11.5-14.5); White Blood Count 5.7 K/mm3 (4.5-10.0)
[2024-10-05 12:05] LABS: Alanine Aminotransferase 15 U/L (6-35); Albumin Level 4.3 g/dL (3.5-5.1); Alkaline Phosphatase 63 U/L (38-126); Anion Gap 10 mmol/L (4-12); Aspartate Amino Transferase 24 U/L (14-36); Bilirubin,Total 0.6 mg/dL (0.2-1.3); Blood Urea Nitrogen 16 mg/dL (7-17); Calcium 9.3 mg/dL (8.4-10.2); Carbon Dioxide 24 mmol/L (22-30); Chloride 106 mmol/L (98-107); Cholesterol 178 mg/dL (0-200); Estimated Glomerular Filt Rate > 60; Glucose 193 mg/dL (65-110); HDL Direct 66 mg/dL; Potassium 4.5 mmol/L (3.4-5.0); Sodium 140 mmol/L (137-145); Triglycerides 142 mg/dL (<150)
[2024-10-05 12:16] LABS: LDL Cholesterol Direct 87 mg/dL
[2024-10-05 12:58] LABS: Vitamin D 25 Hydroxy 86.7 ng/mL
[2024-10-05 13:12] LABS: Thyroid Stimulating Hormone Reflex 0.961 uIU/mL (0.465-4.68)
[2024-10-05 13:26] LABS: Hemoglobin A1C 7.2 % (<5.7)
[2024-10-05 14:05] LABS: Creatinine Urine 72.9 mg/dL
[2024-10-05 14:12] LABS: MALB Creatinine Ratio 19.3 mg/g (0-30); Microalbumin Urine Random 14.1 mg/L (0-16.7)
== END 2024-10-05 10:33 | disposition home or self-care (01) ==
PROVIDERS: PCP Family Medicine; Visit Provider Family Medicine
DX: M19.012 Primary osteoarthritis, left shoulder (principal); G89.29 Other chronic pain; E78.5 Hyperlipidemia, unspecified; I10 Essential (primary) hypertension; E55.9 Vitamin D deficiency, unspecified; E11.9 Type 2 diabetes mellitus without complications; I82.90 Acute embolism and thrombosis of unspecified vein; E53.8 Deficiency of other specified B group vitamins
CPT/HCPCS: 36415; 73030; 80053; 80061; 82043; 82306; 82607; 83036; 84443; 85025

== ENCOUNTER 2025-07-21 14:31 | Outpatient (CLI) | payer MEDICARE, SELFPAY ==
--- OUTSIDE RECORDS SUMMARY | 2025-02-05 03:00 | XMS_ITS ---
Author Organization [facility] Medical Practices [facility] Address [address] [place], [place] [phone] [place] [address] Care Team Providers Care Termite Exterminator Name Role Phone Migration, Provider Unavailable [phone] REASON FOR VISIT EMR-Ranjan Encounters Encounter Location Date Provider Diagnosis [address] [address] 02/05/2025 Provider Migration Plan Of Treatment No Information Progress Notes * Tiffani HAMMDOB:1945 (79 yo F)Acc No.[id number]:02/05/2025 Patient: Tiffani PEREZ :1945 A ge:79 Y S ex:Female [facility] [facility] [address] Subjective: * Chief Complaints: * E MR-Ranjan * * Date:
--- OUTSIDE RECORDS SUMMARY | 2025-02-06 03:00 | XMS_ITS ---
Author Organization [facility] Medical Practices [facility] Address [address] [place], [place] [id number] [place] [address] Care Team Providers Care Electronic Engineering Draftsperson Name Role Phone Migration, Provider Unavailable [phone] REASON FOR VISIT EMR-Ranjan Encounters Encounter Location Date Provider Diagnosis [address] [address] 02/06/2025 Provider Migration Plan Of Treatment No Information Progress Notes * Tiffani HAMMDOB:1945 (79 yo F)Acc No.[id number]:02/06/2025 Patient: Tiffani PEREZ :1945 A ge:79 Y S ex:Female [facility] [facility] [address] Subjective: * Chief Complaints: * E MR-Ranjan * * Date:
--- OUTSIDE RECORDS SUMMARY | 2025-07-21 13:30 | XMS_ITS | Encounter Summary ---
Author Organization [facility] [employer] [facility] Address [address] [place] [address] Care Team Providers Care Set Up Machinist Name Role Phone Dominic Peña MD Primary Care Provider Encounter Details Date Type Department Care Team (Late st Contact Info) Description 07/21/2025 1:30 PM DEVELOPMENT MGR Office Visit [facility] Oncology and Hematology - Steve [address] [place] [address] Carolin Arnold MD [address] [place] [address] Secondary hypercoagulable state (Primary Dx) Social History Tobacco Use Types Packs/Day Years Used Date Smoking Tobacco: Never Smokeless Tobacco: Never Tobacco Cessation:Counseling Given: Not Answered Alcohol Use Standard Drinks/Week Comments Never 0 (1 standard drink = 0.6 oz pur e alcohol) Comments Unknown Sex and Gender Information Value Date Recorded Sex Assigned at Not on file Legal Sex Female 10:44 AM DEVELOPMENT MGR Gender Identity Not on file Sexual Orientation Not on file documented as of this encounter Last Filed Vital Signs Vital Sign Reading Time Taken Comments Blood Pressure 112/79 07/21/2025 1:27 PM DEVELOPMENT MGR Pulse 71 07/21/2025 1:27 PM DEVELOPMENT MGR Temperature 36.1 C (96.9 F) 07/21/2025 1:27 PM DEVELOPMENT MGR Respiratory Rate 16 07/21/2025 1:27 PM DEVELOPMENT MGR Oxygen Saturation 95% 07/21/2025 1:27 PM DEVELOPMENT MGR Inhaled Oxygen Concentration - - Weight 72.3 kg (159 lb 6.4 oz) 07/21/2025 1:27 P M DEVELOPMENT MGR Height 154.9 cm (5' 1) 07/21/2025 1:27 PM DEVELOPMENT MGR Body Mass Index 30.12 07/21/2025 1:27 PM DEVELOPMENT MGR documented in this encounter Plan of Treatment Upcoming Encounters Date Type Department Care Team (Late st Contact Info) Description 01/19/2026 10:15 AM CDT Office Visit [facility] Oncology and Hematology - Meredith [address] [facility] [address] [place] [address] Kota Vasquez MD [address] [facility] [address] [place] [address] Scheduled Orders Name Type Priority Associated Diagnoses Orde r Schedule COMPREHENSIVE METABOLIC PANEL Lab Stat Secondary hypercoagulable state Expected: 07/21/2025, Expires: 07/21/2026 CBC WITH DIFFERENTIAL Lab Routine Secondary hypercoagulable state Expected: 07/21/2025, Expires: 07/21/2026 documented as of this encounter Visit Diagnoses Diagnosis Secondary hypercoagulable state- Primary documented in this encounter Care Teams Set Up Machinist Relationship Specialty Start Date End Date Dominic Peña MD [address] [place] [id number] PCP - General Family Practice 12/04/21 documented as of this encounter
--- OUTSIDE RECORDS SUMMARY | 2025-07-21 14:51 | XMS_ITS | Clinical Summary ---
Author Organization [facility] Address [address] [place] [address] Care Team Providers Care Fiberglass Technician Name Role Phone Dominic Peña MD Primary Care Provider Allergies No known active allergies Medications gabapentin Take by mouth 2 times daily. Active aspirin (ECOTRIN EC) 81 mg Tablet, Delayed Release (E.C.) Take 81 mg by mouth daily. Active blood sugar diagnostic (Accu-Chek Guide test strips) Strip 07/19/20 21 Active Blood-Glucose Meter (Accu-Chek Guide Me Glucose Mtr) 07/20/20 21 Active busPIRone (BUSPAR) 10 mg tablet Take 10 mg by mouth. 05/02/20 20 030 Active carvediloL (COREG) 12.5 mg tablet TAKE 1 TABLET BY MOUTH TWICE A DAY WITH FOOD 11/21/19 22 Active docusate sodium (COLACE) 100 mg capsule Take 100 mg by mouth. Active Accu-Chek Softclix Lancets USE TO TEST BLOOD SUGARS TWICE A DAY 11/27/19 22 Active metFORMIN (GLUCOPHAGE XR) 500 mg Extended Release 24 hour tablet Take 1,000 mg by mouth daily with breakfast. 07/18/20 21 Active omeprazole (PriLOSEC) 40 mg Capsule, Delayed Release(E.C.) Take 40 mg by mouth daily. 09/02/20 21 Active tiZANidine (ZANAFLEX) 2 mg Tablet Take 2 mg by mouth. 06/20/20 21 Active venlafaxine (EFFEXOR XR) 37.5 mg Extended Release 24 hour capsule Take 37.5 mg by mouth daily. 02/13/20 21 030 Active amLODIPine (NORVASC) 5 mg tablet Take 5 mg by mouth daily. 07/18/20 Active losartan (COZAAR) 50 mg tablet Take 50 mg by mouth daily. 07/02/20 22 Active fluticasone propionate (FLONASE) 50 mcg/spray [place], Suspension nasal inhaler ADMINISTER 2 SPRAYS INTO EACH NOSTRIL 2 TIMES A DAY. 08/04/20 22 Active Xarelto 10 mg TabletIndications:S econdary hypercoagulable state,Personal history of DVT (deep vein thrombosis) TAKE 1 TABLET EVERY DAY WITH SUPPER 90 Tablet 10 06/18/20 23 Active Active Problems Problem Noted Date Diagnosed Date Secondary hypercoagulable state 01/08/2022 Encounters Date Type Department Care Team Description 07/21/2025 1:30 PM CANDY FEEDER Office Visit [facility] Oncology and Hematology [facility] [address] [place] [phone] Carolin Arnold MD Secondary hypercoagulable state (Primary Dx) from Last 3 Months Family History Medical History Relation Name Comments No Known Problems Brother No Known Problems Daughter Prostate Cancer Father No Known Problems Mother Breast Cancer Sister 1 Colon Cancer Sister 1 Thyroid Cancer Sister 1 Stomach Cancer Sister 2 No Known Problems Sister 3 No Known Problems Son Relation Name Status Comments Brother Alive Daughter Alive Father Mother Sister 1 Sister 2 Sister 3 Alive Son Alive Social History Tobacco Use Types Packs/Day Years Used Date Smoking Tobacco: Never Smokeless Tobacco: Never Tobacco Cessation:Counseling Given: Not Answered Alcohol Use Standard Drinks/Week Comments Never 0 (1 standard drink = 0.6 oz pur e alcohol) Comments Unknown Sex and Gender Information Value Date Recorded Sex Assigned at Not on file Legal Sex Female 10:44 AM CANDY FEEDER Gender Identity Not on file Sexual Orientation Not on file Last Filed Vital Signs Vital Sign Reading Time Taken Comments Blood Pressure 112/79 07/21/2025 1:27 PM CANDY FEEDER Pulse 71 07/21/2025 1:27 PM CANDY FEEDER Temperature 36.1 C (96.9 F) 07/21/2025 1:27 PM CANDY FEEDER Respiratory Rate 16 07/21/2025 1:27 PM CANDY FEEDER Oxygen Saturation 95% 07/21/2025 1:27 PM CANDY FEEDER Inhaled Oxygen Concentration - - Weight 72.3 kg (159 lb 6.4 oz) 07/21/2025 1:27 P M CANDY FEEDER Height 154.9 cm (5' 1) 07/21/2025 1:27 PM CANDY FEEDER Body Mass Index 30.12 07/21/2025 1:27 PM CANDY FEEDER Plan of Treatment Upcoming Encounters Date Type Department Care Team (Late st Contact Info) Description 01/19/2026 10:15 AM CDT Office Visit [facility] Oncology and Hematology - [place] [address] [facility] [address] [place] [address] Kota Vasquez MD [address] [facility] [address] [place] [address] Health Maintenance Due Date Last Done Comments DIABETES ANNUAL RETINAL EXAM 1965 DIABETES MICROALBUMIN ANNUAL SCREEN 1965 LDL CHOLESTEROL ANNUAL 1965 ZOSTER VACCINE (2 of 3) 11/03/2016 09/08/2016 RSV VACCINE (60+ or ) (1 - 1-dose 75+ series) 2022 Medicare Advantage ([place]) Preventative Visit/Annual Wellness Visit 09/08/2024 DIABETES HBA1C Q 6 MONTHS 03/01/20252023, 10/28/2023, 01/31/2022 INFLUENZA VACCINE (#1) 2025 1, 08/10/2020, 07/16/2018, Additional history exists COVID-19 Vaccine (3 - 2024-2 6 season) 2025 03/21/2021, 02/28/2021 DIABETES ANNUAL FOOT EXAM 07/16/2025 07/16/2024 OSTEOPOROSIS SCREENING 11/28/2028 4, 11/29/2023, 05/31/2020, Additional history exists DTAP/TDAP/TD VACCINES (2 - T d or Tdap) 08/10/2030 08/10/2020 PNEUMOCOCCAL VACCINE 50+ YEARS Completed 1 10/18/2023, 03/05/2022, 07/16/2018, Additional history exists Procedures Procedure Name Priority Date/Time Associated Diagnosis Comments HEMOGLOBIN A1C Routine 01/31/2022 from Last 3 Months or Most Recently Relevant to Health Maintenance Results * HEMOGLOBIN A1C (01/31/2022) Blood us Abstract Provider CHEMISTRY ORDERABLES Final Res ult from Last 3 Months or Most Recently Relevant to [place] [id number] [facility] Address: [address] [address] Care Teams Fiberglass Technician Relationship Specialty Start Date End Date Dominic Peña MD [address] [place] [id number] PCP - General Family Practice 12/04/21
--- OUTSIDE RECORDS SUMMARY | 2025-07-21 14:51 | XMS_ITS | Clinical Summary ---
Author Organization [facility] Address [address] [place] [id number] Care Team Providers Care Pile Driving Supervisor Name Role Phone Jamal Hwang MD Unavailable Dominic Peña MD Primary Care Provider Allergies No known active allergies Medications docusate sodium (COLACE) 100 mg capsuleIndicatio ns:constipation Take 1 capsule (100 mg total) by mouth 3 (three) times a day as needed for constipation Active albuterol HFA (ProAir HFA) 90 mcg/actuation inhalerIndicatio ns:SOB (shortness of breath) Inhale 2 puffs every 4 (four) hours as needed for wheezing or shortness of breath 8.5 g 1 Active azelastine (ASTELIN) 137 mcg (0.1 %) nasal sprayIndications :Seasonal allergies ADMINISTER 1 SPRAY INTO EACH NOSTRIL 2 TIMES A DAY DIRECTED 30 mL 1 1 Active Accu-Chek Guide test strips strip 1 Active Accu-Chek Guide Me Glucose Mtr misc 1 Active Accu-Chek Softclix Lancets lancets 1 Active aspirin 81 mg enteric coated tablet Take 1 tablet (81 mg total) by mouth daily Active losartan (COZAAR) 50 mg tablet Take 1 tablet (50 mg total) by mouth daily 3 Active Xarelto 10 mg tablet Take 1 tablet (10 mg total) by mouth daily 3 Active iron bis glycinat-vit C-FA-B12 (Gentle Iron) 28 mg iron-60mg -400 mcg-8 mcg capsule Take 1 capsule by mouth daily Active gabapentin (NEURONTIN) 300 mg capsule Take 1 capsule (300 mg total) by mouth 2 (two) times a day 180 capsule 3 3 Active metFORMIN XR (GLUCOPHAGE XR) 500 mg 24 hr tablet Take 2 tablets (1,000 mg total) by mouth 2 (two) times a day with meals 180 tablet 3 4 Active diclofenac sodium (VOLTAREN) 1 % gel Apply 4 g topically 4 (four) times a day 200 g 3 4 Active Vitamin D3 50 mcg (2,000 unit) capsule Take 1 capsule (2,000 Units total) by mouth daily 4 Active omeprazole (PriLOSEC) 40 mg capsule TAKE 1 CAPSULE EVERY DAY 90 capsule 3 4 Active carvediloL (COREG) 12.5 mg tabletIndication s:Essential hypertension TAKE 1 TABLET TWICE DAILY WITH MEALS 180 tablet 3 4 Active pravastatin (PRAVACHOL) 20 mg tablet TAKE 1 TABLET EVERY DAY 90 tablet 3 4 Active venlafaxine XR (EFFEXOR-XR) 75 mg 24 hr capsule Take 1 capsule (75 mg total) by mouth daily 90 capsule 3 4 Active amLODIPine (NORVASC) 5 mg tablet TAKE 1 TABLET EVERY DAY 90 tablet 3 4 Active tiZANidine (ZANAFLEX) 2 mg tabletIndication s:Mid back pain, chronic TAKE 1 TABLET (2 MG TOTAL) BY MOUTH EVERY 6 (SIX) HOURS NEEDED FOR MUSCLE SPASMS 90 tablet 3 4 Active cetirizine (ZyrTEC) 10 mg tablet TAKE 1 TABLET EVERY DAY 90 tablet 3 4 Active fluticasone propionate (FLONASE) 50 mcg/actuation nasal spray ADMINISTER 1 SPRAY INTO EACH NOSTRIL 2 (TWO) TIMES A DAY 48 g 3 5 Active busPIRone (BUSPAR) 10 mg tablet TAKE 1 TABLET THREE TIMES DAILY 270 tablet 5 Active guaiFENesin-dext romethorphan ER (MUCINEX DM) 600-30 mg tablet extended release 12 hr Take 1 tablet by mouth every 12 (twelve) hours as needed (Take once every 12 hours as needed for cough/congestion ) 28 tablet 5 Active Active Problems Problem Noted Date Diagnosed Date Class 1 obesity due to exces s calories with serious comorbidity and body mass index (BMI) of 31.0 to 31.9 in adult 10/30/2023 Assessment & Plan (10/30/2023 12:39 PM FERMENTER): HPI: Condition is not at/near goal goal BMI <30 A&P: Healthy, high-protein, lower carbohydrate, lower fat lifestyle and exercise for 150min/week recommended Recommend tracking everything you put in your mouth on an andie like [employer] Increase protein in diet. Examples: 1 whole egg and 2 servings of egg whites, or 2 whole eggs and 1/4 cup low fat cottage cheese, protein supplement shakes, [facility] core power elite shake has 42 [...] in much longer they will become mushy [place] and/or coconut flour instead of regular flour [...] pork rinds For yogurt, try [employer] pashto yogurt Use Pinterest for recipe ideas. Type in low carb... Hand Measurements: A fist or cupped hand = 1 cup 1 cup = 1 -2 servings of fruit juice 1 oz. of cold cereal 2 oz. of cooked cereal, rice or pasta 8 oz. of milk or yogurt A thumb = 1 oz. of cheese Consuming low-fat cheese helps you meet the required servings from the milk, yogurt and cheese group. 1 oz. of low-fat cheese counts as 8 [...] equals 3 oz. for an adult and 1 -2 oz. for a child under 5. 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 Please try to get 15 min of unsunscreened time daily with as much skin showing as possible. Anything more than 15 min, please use sunscreen. Bilateral leg pain 04/24/2023 Assessment & Plan (10/30/2023 12:35 PM FERMENTER): HPI: Condition is stable A&P: Discussed/ordered labs, [...] 04/15/2023 Assessment & Plan (10/30/2023 12:33 PM FERMENTER): Condition is not at/near goal Personally reviewed [...] Diabetes Complications History of macrovascular disease (CVA, NM, PVD) is Present. Complications secondary to Diabetes [...] Diabetes Complications History of macrovascular disease (CVA, NM, PVD) is Present. Complications secondary to Diabetes [...] 07/13/2021 Assessment & Plan (10/30/2023 12:26 PM FERMENTER): HPI: Condition is stable A&P: Discussed/ordered labs, [...] daily Assessment & Plan (07/22/2021 9:28 PM FERMENTER): Con't use of xarelto 20 mg daily for PE/VTE prophylaxis. No s/s of bleeding/bruising/melena or hematochezia is noted today. History of pulmonary embolism 06/06/2021 Assessment & Plan (10/30/2023 12:25 PM FERMENTER): HPI: Condition is stable A&P: Discussed/ordered labs, [...] daily Assessment & Plan (07/22/2021 9:29 PM FERMENTER): Con't use of xarleto 20 mg daily for prophylaxis. 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 Assessment & Plan (07/22/2021 9:27 PM FERMENTER): Controlled. Continue current regimen carvedilol 12.5 b.i.d., [...] 05/16/2020 Assessment & Plan (10/30/2023 12:22 PM FERMENTER): Pt seeing Dr. Hwang today and will address this with him today Assessment & Plan (05/01/2023 2:49 PM CDT): At last office visit we sent pt to cardiology seeing Dr. Hwang Assessment & Plan (04/15/2023 2:01 PM CDT): EKG done in office today Per my interpretation Rhythm/Rate: NSR rate 85 [place]: left axis deviation BBB: no BBB Comparison [...] 05/08/2020 Assessment & Plan (10/30/2023 12:21 PM FERMENTER): HPI: Condition is stable A&P: Discussed/ordered labs, [...] daily Assessment & Plan (07/22/2021 9:27 PM FERMENTER): Labs today. Continue current pravastatin 20 mg. Assessment & Plan (01/22/2021 5:06 PM CDT): Labs today. Continue current pravastatin. Seasonal allergies 07/16/2018 Assessment & Plan (10/30/2023 12:21 PM FERMENTER): HPI: Condition is not at/near goal Negative [...] rinses. Assessment & Plan (10/16/2020 2:52 PM FERMENTER): Still with some post nasal drip w/ use of flonase/astelin. Was better with teeth. Will have it wax/wane due to weather. Had mild improvement with antibiotics. Had some improvement yesterday. Dental infection is noted currently. 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 Hereditary and idiopathic peripheral neuropathy [...] follow Assessment & Plan (10/30/2023 12:20 PM FERMENTER): HPI: Condition is stable A&P: Discussed/ordered labs, [...] issues and will follow Recurrent major depressive disorder, in full rem ission 02/24/2018 Assessment & Plan (10/30/2023 12:20 PM FERMENTER): Patient reiterated no suicidal thoughts at this [...] daily Assessment & Plan (07/22/2021 9:28 PM FERMENTER): Chronic. Stable. Con't effexor 37.5 mg daily. Assessment & Plan (01/22/2021 5:05 PM CDT): Con't use of duloxetin and buspar TID. Counseling referral provided. Con't with distraction. Assessment & Plan (11/03/2020 4:47 AM FERMENTER): In remission. DOT (generalized anxiety disorder) 02/24/2018 Assessment & Plan (10/30/2023 12:20 PM FERMENTER): Patient reiterated no suicidal thoughts at this [...] daily Assessment & Plan (07/22/2021 9:28 PM FERMENTER): Chronic. Stable. Effexor 37.5 mg daily, buspar [...] 11/17/2017 Assessment & Plan (10/30/2023 12:19 PM FERMENTER): PI: Condition is stable A&P: Discussed/ordered labs, [...] I Assessment & Plan (10/30/2023 12:19 PM FERMENTER): Pt states using cpap for 8 hours/night [...] Overview: Assessment & Plan (10/30/2023 12:13 PM FERMENTER): Patient reiterated no suicidal thoughts at this [...] Overview: Assessment & Plan (10/30/2023 12:17 PM FERMENTER): HPI: Condition is stable A&P: Discussed/ordered labs, encouraged healthy, low carbohydrate lifestyle and at least 150min/week of exercise, Please start taking probiotic 50billion CFU daily [facility]. 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 Assessment & Plan (04/15/2023 7:57 AM CDT): [...] hot drink, can also improve the situation penitentiary. Assessment & Plan (01/22/2021 5:02 PM CDT): Asymptomatic at this time. Con't use of colace. Assessment & Plan (10/16/2020 2:36 PM FERMENTER): Chronic. Use of stool softner TID w/o resolution. Has seen GI. Diverticulosis on colonoscopy in 2017. Generalized osteoarthritis 07/26/2013 Overview (07/16/2018): Overview: Overview: Assessment & Plan (10/30/2023 12:18 PM FERMENTER): HPI: Condition is stable A&P: Discussed/ordered labs, [...] Overview: Assessment & Plan (10/30/2023 12:15 PM FERMENTER): HPI: Condition is stable Continue on current [...] NEC Assessment & Plan (10/30/2023 12:15 PM FERMENTER): Scheduled for bone density November 2023 Take the vit d3 4886-2671 units daily Assessment & Plan (05/01/2023 11:39 [...] want to get in to see a channel manager in referral was given Assessment & Plan (04/20/2018 12:54 PM CDT): Patient was provided with a metatarsal pad to wear to help unload the 5th MTP joint. She has not seen significant improvement she may want to get in to see a channel manager in referral was given Trochanteric bursitis of [...] weeks Assessment & Plan (10/30/2017 2:17 PM FERMENTER): Patient likely has a partial-thickness tear of [...] helpful Assessment & Plan (10/30/2017 2:18 PM FERMENTER): The patient is not currently myelopathic. Her [...] ordered. Assessment & Plan (10/30/2017 2:17 PM FERMENTER): Patient has scoliosis in the lumbar spine [...] CDT): Controlled. Continue current regimen. Cardiovascular symptoms 12/18/201605/2018 Incontinence of feces 12/17/20162017 Overview (08/15/2017): Mixed [...] Plan (01/22/2021 5:03 PM CDT): Stable. Continue heci-ezc-[id number] topical. Essential hypertension 12/17/201608/07 Overview (07/16/2018): Overview: [...] with physical therapy. Improvement is reported. Immunizations Immunization Administration Dates Next Due Influenza, Quadrivalent, Hig [...] want to get in to see a channel manager in referral was given Trochanteric bursitis of [...] making you feel afraid or unsafe? Denies 11/02/2024 Comments No Sex and Gender Information Value Date Recorded Sex Assigned at Not on file Legal Sex Female 2:31 AM FERMENTER Gender Identity Not on file Sexual Orientation Not on file Obstetrics History Para Term AB IAB SAB Ectopic Multiple Livin g Live Births 2 2 2 Date Outcome GA Total Labor Labor/2nd/3rd Weight Sex Type Anes PTL Sharmin A1 A5 Name Clin Term Term Last Filed Vital Signs Vital Sign Reading Time Taken Comments Blood Pressure 98/84 11/02/2024 4:37 PM FERMENTER Pulse 87 11/02/2024 4:37 PM FERMENTER Temperature 37.2 C (98.9 F) 11/02/2024 4:37 PM FERMENTER Respiratory Rate 18 11/02/2024 4:37 PM FERMENTER Oxygen Saturation 99% 11/02/2024 4:37 PM FERMENTER Inhaled Oxygen Concentration - - Weight 74.5 kg (164 lb 3.9 oz) 11/02/2024 2:54 P M FERMENTER Height 157.5 cm (5' 2) 11/02/2024 2:54 PM FERMENTER Body Mass Index 30.04 11/02/2024 2:54 PM FERMENTER Plan of Treatment Health Maintenance Due Date Last Done Comments Hepatitis B Screening 1963 Zoster Vaccine (2 of 3) 11/03/2016 09/08/2016 Well Visit 65+ 01/22/2022 01/22/2021, 12/0 11/2019, 11/14/2017 Albumin Creatinine Ratio, Urine 04/15/2024 04/15/2023, 01/22/2021, 05/02/2020 Foot Exam 04/15/2024 04/15/2023 Fall Risk Assessment 04/24/2024 04/24/2023, 04/15/2023, 07/13/2021, Additional history exists Hemoglobin A1C 04/27/2024 10/28/2023, 04/15/2023 Dilated Eye Exam 07/23/2024 07/23/2023 Lipid Panel 10/28/2024 10/28/2023, 08/0 04/2023, 11/20/2021, Additional history exists eGFR 10/28/2024 10/28/2023, 08/0 04/2023, 12/06/2022, Additional history exists Depression Screening 10/30/2024 10/30/2023, 10/30/2023, 04/15/2023, Additional history exists Covid-19 Vaccine (3 - 2024-2 6 season) 2025 03/21/2021, 02/28/2021 Influenza Vaccine (#1) 2025 , 06/09/2022, 06/29/2021, Additional history exists Osteoporosis Screening-Bone Density Scan [...] fracture Post-menopausal EGFR Routine 10/28/2023 11:35 AM FERMENTER Essential hypertension 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 (HCC) HEMOGLOBIN A1C Routine 10/28/2023 11:35 AM FERMENTER 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 (HCC) LIPID PANEL Routine 10/28/2023 11:35 AM FERMENTER 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 (HCC) HM DIABETES EYE EXAM Routine 07/23/2023 ALBUMIN CREATININE RATIO, URINE Routine 04/15/2023 2:01 PM CDT Diabetes mellitus due to underlying condition, uncontrolled, with hyperglycemia (HCC) SCREENING MAMMOGRAM BILATERAL [place] Schedule Routine, Read Routine (OP Routine) 07/26/2021 11:35 AM FERMENTER Screening mammogram, encounter for HEPATITIS C ANTIBODY Routine 07/16/2018 2:00 PM FERMENTER Need for hepatitis C screening test COLONOSCOPY REPORT 12/31/2016 from Last 3 Months or Most Recently Relevant to Health Maintenance Results * Dexa Axial Skeleton Bone Density 1 or 2 Site (11/29/2023 11:39 AM CDT) Anatomical Region Laterality Modality Body N/A Other 11/29/2023 11:4 0 AM CDT Impressions 11/29/2023 11:40 AM CDT 1. The bone mineral density of the [...] -2.0 is below the expected range for age. A Z-score below the expected range for age in a patient with recent fractures and/or chronic corticosteroid treatment is consistent with a diagnosis of osteoporosis. B) In post menopausal women and males over 50, comparison of the measured bone mineral density with the average value in young normal subjects (the T-score) has been found to be useful in [...] -2.0 Total Hip (Left) 0.718 -1.8 0.0 Procedure Note Mary Dumont MD - 11/29/2023 [...] -2.0 is below the expected range for age. A Z-score below the expected range for age in a patient with recent fractures and/or chronic corticosteroid treatment is consistent with a diagnosis of osteoporosis. B) In post menopausal women and males over 50, comparison of the measured bone mineral density with the average value in young normal subjects (the T-score) has been found to be useful in [...] http://www.shef.ac.uk/FRAX). Electronically signed by: Mary Dumont M.D. Neisha Chacko NP IMG DXA PROCEDURES Final Re sult * eGFR (10/28/2023 11:35 AM FERMENTER) [facility] eGFR 64 mL/min/1. 73 m2 [facility] Comment: Interpretive Data Reference Interval Normal >/= 90 mL/min/1.73m2 Mildly decreased* 60 - 89 mL/min/1.73m2 Mildly to moderately decreased 45 - 59 mL/min/1.73m2 Moderately to severely decreased 30 - 44 mL/min/1.73m2 Severely decreased 15 - 29 mL/min/1.73m2 Kidney Failure < 15 mL/min/1.73m2 *Relative to young adult level Estimated glomerular [...] reviewed 2021. Blood 10/28/2023 11:3 5 AM FERMENTER 10/28/2023 5:36 PM FERMENTER Neisha Chacko LAB BLOOD ORDERABLES Final Result Performing Organization Address [facility] de Phone Number [facility] [address] Department [email or web address] [place], [place] [id number] * (ABNORMAL) Hemoglobin A1c (10/28/2023 11:35 AM FERMENTER) Hgb A1C 7.7(H) 4.0 - 5.6 % [facility] Estimated Average Glucose 174 mg/dL [facility] Comment: The ADA recommends reporting an estimated Average Glucose (eAG) with all Hemoglobin A1c results using the equation derived from a study of 507 normal and diabetic adults. Minority populations were underrepresented and children were not included. (Diabetes Care 31:4959-8099, 2008). The eAG is not equivalent to a fasting glucose. Blood 10/28/2023 11:3 5 AM FERMENTER 10/28/2023 5:36 PM FERMENTER Neisha Chacko NP LAB BLOOD ORDERABLES Final Result Performing Organization Address [facility] de Phone Number [facility] [address] [place] [address] * Lipid panel (10/28/2023 11:35 AM FERMENTER) Pathologist [facility] Cholesterol 178 30 - 199 mg/dL [facility] Comment: Interpretive Data Ages < or = 19 years Acceptable: <170 mg/dL Borderline high: 170-199 mg/dL High: >or= 200 mg/dL Ages > or = 20 years Desirable: <200 mg/dL Borderline high: 200-239 mg/dL High: >or= 240 mg/dL Literature References: 1. Expert Panel on Integrated Guidelines for Cardiovascular Health and Risk Reduction in Children and Adolescents. Pediatrics 2011;128:S213 2. NCEP Expert Panel. Circulation 2004;110:227 Current Interpretive Data was last revised on 2018. Triglycerides 104 <=149 mg/dL [facility] Comment: Interpretive Data Ages < or = 9 years Acceptable: <75 mg/dL Borderline high: 75-99 mg/dL High: >or= 100 mg/dL Ages 10 to 20 years Acceptable: <90 mg/dL Borderline high: 90-129 mg/dL High: >or= 130 mg/dL Ages > or = 20 years Desirable: <150 mg/dL Borderline high: 150-199 mg/dL High: 200-499 mg/dL Very high: >or= 499 mg/dL Literature References: 1. Expert Panel on Integrated Guidelines for Cardiovascular Health and Risk Reduction in Children and Adolescents. Pediatrics 2011;128:S213 2. NCEP Expert Panel. Circulation 2004;110:227 Current Interpretive Data was last revised on 2018. HDL 63 >=40 mg/dL [facility] Comment: Interpretive Data Ages < or = 19 years Acceptable: >45 mg/dL Borderline low: 40-45 mg/dL Low: <40 mg/dL Ages > or = 20 years Desirable: >or= 60 mg/dL Low: <40 mg/dL Literature References: 1. Expert Panel on Integrated Guidelines for Cardiovascular Health and Risk Reduction in Children and Adolescents. Pediatrics 2011;128:S213 2. NCEP Expert Panel. Circulation 2004;110:227 Current Interpretive Data was last revised on 2018. LDL, calculated 94 <=129 mg/dL [facility] Comment: Interpretive Data Ages < or = 19 years Acceptable: <110 mg/dL Borderline high: 110-129 mg/dL High: >or= 130 mg/dL Ages > or = 20 years Optimal: <100 mg/dL Near optimal: 100-129 mg/dL Borderline high: 130-159 mg/dL High: >160 mg/dL Literature References: 1. Expert Panel on Integrated Guidelines for Cardiovascular Health and Risk Reduction in Children and Adolescents. Pediatrics 2011;128:S213 2. NCEP Expert Panel. Circulation 2004;110:227 Current Interpretive Data was last revised on 2018. Non-HDL Cholesterol 115 mg/dL [facility] Comment: Interpretive Data Ages < or = 19 years Acceptable: <120 mg/dL Borderline high: 120-144 mg/dL High: >145 mg/dL Ages > or = 20 years When triglycerides are >200 mg/dL, Non-HDL cholesterol is a secondary target of therapy with treatment goals that are 30 mg/dL greater than the LDL cholesterol target. Literature References: 1. Expert Panel on Integrated Guidelines for Cardiovascular Health and Risk Reduction in Children and Adolescents. Pediatrics 2011;128:S213 2. NCEP Expert Panel. Circulation 2004;110:227 Current Interpretive Data was last revised on 2018. Chol/HDL ratio 3 [facility] Blood 10/28/2023 11:3 5 AM FERMENTER 10/28/2023 5:36 PM FERMENTER Neisha Chacko NP LAB BLOOD ORDERABLES Final Result [facility] [address] Department [place] [address] * DIABETES EYE EXAM (07/23/2023) SCRIBED DIABETIC DILATED EYE EXAM Normal Impressions Tita Naik MA - 07/23/2023 No diabetic retinopathy detected No evidence of macular edema Historical Provider HEALTH MAINTENANCE Final Result * Albumin Creatinine Ratio, Urine (04/15/2023 2:01 PM CDT) Albumin Ur <12.0 mg/L [facility] Comment: Interpretive Data No reference range established. Current interpretive data was last revised 2019. Creatinine Ur 51.8 mg/dL [facility] Comment: Interpretive Data No reference range established. Current interpretive data was last revised 2019. Albumin Creatinine Ratio, Ur <23 1 - 29 mg/g [facility] Urine 04/15/2023 2:01 PM CDT 04/15/2023 2:02 PM CDT Neisha Chacko [employer] DES[employer] LAB URINE ORDERABLES Final Result [facility] [address] [place] [address] * SCREENING MAMMOGRAM BILATERAL [place] (07/26/2021 11:35 AM FERMENTER) Anatomical Region Laterality Modality Breast Bilateral Mammography 07/26/2021 12:2 4 PM FERMENTER Impressions 07/26/2021 12:24 PM FERMENTER There is no mammographic evidence of malignancy. Routine screening mammography is recommended in 1 year. BI-RADS: 1 - Negative. The patient will be entered into a reminder system with a target due date of 1 year for her next mammogram. Electronically signed by: Jayant Bruner M.D. Narrative 07/26/2021 12:24 PM FERMENTER EXAMINATION: SCREENING MAMMOGRAM BILATERAL [place] ORDERING HEALTHCARE PROVIDER: JULIET WILKES HISTORY: Routine screening mammography. COMPARISON: 07/21/2020, 12/25/2016, 10/17/2015. TECHNIQUE: CC and MLO views [...] been no suspicious interval change. Juliet Wilkes [employer] DES[employer] IMG MAMMO PROCEDURES Fi nal Result * Hepatitis C antibody (07/16/2018 2:00 PM FERMENTER) Hep C Ab Negative Negative [facility] Blood specimen (specimen) 07/16/2018 2:00 PM FERMENTER 07/16/2018 2:47 PM FERMENTER Narrative [facility] - 07/16/2018 3:26 PM FERMENTER Javier Chou [employer] DES[employer] LAB MICROBIOLOGY - GENERAL ORDERABLES Final Result [facility] [address] Department [place] [address] * COLONOSCOPY REPORT (12/31/2016) Anatomical Region Laterality Modality Other Narrative 12/31/2016 Ordered by an unspecified provider. us Historical Provider GI PROCEDURE ORDERABLES F inal Result from Last 3 Months or Most Recently Relevant to Health Maintenance Insurance MEDICARE HMO [employer] [place]IC[place] [address] [place] [address] MEDICARE HMO Care Teams Pile Driving Supervisor Relationship Specialty Start Date End Date Dominic Peña MD [address] [facility] [address] [place] [address] PCP - General Family Practice 11/02/24 Jamal Hwang MD [address] [place] [address] Consulting Physician Cardiology 08/10/20
--- OUTSIDE RECORDS SUMMARY | 2025-07-21 14:51 | XMS_ITS | Encounter Summary ---
Author Organization [facility] Healthcare Address [address] [place] [address] Care Team Providers Care Enrollment Clerk Name Role Phone Jamal Hwang MD Unavailable [phone] Juliet Sandoval GASOLINE ATTENDANT Primary Care Provider Vandana Lui [facility] Unavailable [phone] Dominic Peña MD Primary Care Provider Neisha Chacko NP Primary Care Provider Dominic Peña MD Primary Care Provider Encounter Details Date Type Department Care Team (Late st Contact Info) Description 05/02/2021 Telephone [facility] at [address] [address] Gail Nieto PT Social History Tobacco Use Types Packs/Day [...] on file Legal Sex Female 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 Gender Identity Not on file Sexual Orientation Not on file documented as of this encounter Plan of Treatment Not on file documented as of this encounter Visit Diagnoses Not on filedocumented in this encounter Additional Health Concerns Infection Onset Date Last Indicated Resolved Time COVID: Suspected 12/06/2022 12/06/2022 12/06/2022 4:28 PM CDT COVID: Suspected 11/02/2024 11/02/2024 11/02/2024 4:00 PM DESK INTERVIEWER Influenza, adult 11/02/2024 11/02/2024 11/09/2024 3:07 AM DESK INTERVIEWER documented as of this encounter Care Teams Enrollment Clerk Relationship Specialty Start Date End Date Juliet Sandoval NP [address] [facility] [address] [place] [address] PCP - General Family Medicine 10/16/20 11/19/21 Dominic Peña MD [address] [place] [address] [address] [place] [address] PCP - General Family Practice 11/20/21 04/14/23 Neisha Chacko NP [address] [place] [address] [place] [address] PCP - General Family Medicine 04/15/23 11/01/24 Dominic Peña MD [facility] [facility] [address] [place] [address] PCP - General Family Practice 11/02/24 Jamal Hwang MD [address] [place] [address] Consulting Physician Cardiology 08/10/20 Vandana Lui, [facility] [address] [place] [address] Pharmacist Pharmacy 06/14/21 06/17/21 documented as of this encounter
--- OUTSIDE RECORDS SUMMARY | 2025-07-21 14:51 | XMS_ITS | Encounter Summary ---
Author Organization [facility] Healthcare Address [address] [place] [address] Care Team Providers Care Fast Food Cook Name Role Phone Jamal Hwang MD Unavailable Juliet Sandoval STRAIGHTEDGE MAN Primary Care Provider Dominic Peña MD Primary Care Provider Neisha Chacko STRAIGHTEDGE MAN Primary Care Provider [phone] Dominic Peña MD Primary Care Provider Reason for Visit * Reason Onset Date Comments Scheduling Appointments 07/25/2021 Confirmi ng mammogram appt Encounter Details Date Type Department Care Team (Late st Contact Info) Description 07/25/2021 Telephone [facility] [address] [place] [id number] Paulette Hernandez RT Scheduling Appointments (Confirming mammogram [...] on file Legal Sex Female 2:31 AM 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 Gender Identity Not on file Sexual Orientation Not on file documented as of this encounter Plan of Treatment Not on file documented as of this encounter Visit Diagnoses Not on filedocumented in this encounter Additional Health Concerns Infection Onset Date Last Indicated Resolved Time COVID: Suspected 12/06/2022 12/06/2022 12/06/2022 4:28 PM CDT COVID: Suspected 11/02/2024 11/02/2024 11/02/2024 4:00 PM PARTS CATALOGUER Influenza, adult 11/02/2024 11/02/2024 11/09/2024 3:07 AM PARTS CATALOGUER documented as of this encounter Care Teams Fast Food Cook Relationship Specialty Start Date End Date Juliet Sandoval, CYNDEE [address] [place] [address] PCP - General Family Medicine 10/16/20 11/19/21 Dominic Peña MD [address] [place] [address] PCP - General Family Practice 11/20/21 04/14/23 Neisha Chacko NP [address] [place] [address] PCP - General Family Medicine 04/15/23 11/01/24 Dominic Peña MD [address] [address] PCP - General Family Practice 11/02/24 Jamal Hwang MD [address] [place] [address] Consulting Physician Cardiology 08/10/20 documented as of this encounter
--- OUTSIDE RECORDS SUMMARY | 2025-07-21 14:51 | XMS_ITS | Patient Health Record ---
Author Organization [facility] Address [address] [address] Care Team Providers Care Apple Sorter Name Role Phone Migration, Provider Unavailable [phone] Reason For Referral No Information Encounters Encounter Location Date Provider Diagnosis [facility] [address] [address] 02/05/2025 Provider Migration [facility] [address] [address] 02/06/2025 Provider Migration Plan Of Treatment No Information
[2025-07-21 15:13] LABS: Hematocrit 39.6 % (37.0-47.0); Hemoglobin 12.3 g/dL (12.0-15.0); Immature Granulocyte Percent A 0.2 % (0-0.5); Lymphocytes Absolute Auto 2.61 K/mm3 (0.9-3.2); Mean Corpuscular HGB Conc 31.1 g/dl (32-36); Mean Corpuscular Hemoglobin 26.3 pg (26-34); Mean Corpuscular Volume 84.6 fl (80-100); Nucleated Red Blood Cells Absolute Auto 0.000 K/mm3 (0.0-0.012); Nucleated Red Blood Cells Perc 0.0 % (0.0-0.2); Platelet Count Result 205 k/mm3 (150-375); Red Blood Count 4.68 M/mm3 (4.2-5.4); White Blood Count 5.5 K/mm3 (4.5-10.0)
[2025-07-21 16:25] LABS: Alanine Aminotransferase 17 U/L (6-35); Albumin Level 4.6 g/dL (3.5-5.1); Alkaline Phosphatase 81 U/L (38-126); Anion Gap 9 mmol/L (4-12); Aspartate Amino Transferase 37 U/L (14-36); Bilirubin,Total 0.7 mg/dL (0.2-1.3); Blood Urea Nitrogen 14 mg/dL (7-17); Calcium 9.3 mg/dL (8.4-10.2); Carbon Dioxide 23 mmol/L (22-30); Chloride 106 mmol/L (98-107); Estimated Glomerular Filt Rate 58; Glucose 100 mg/dL (65-110); Potassium 4.8 mmol/L (3.4-5.0); Sodium 138 mmol/L (137-145); Total Protein 8.5 g/dL (6.3-8.2)
== END 2025-07-21 14:32 | disposition home or self-care (01) ==
PROVIDERS: Internal Medicine Hematology & Oncology; PCP Family Medicine; Visit Provider Internal Medicine Hematology & Oncology
DX: D68.69 Other thrombophilia (principal)
CPT/HCPCS: 36415; 80053; 85025